=== PATIENT | male | born 1965 | race African-American/Black ===

== ENCOUNTER 2017-01-22 10:16 | Emergency (ER) | payer MEDICAID, MEDICARE ==
--- NOTE | 2017-01-22 10:29 | ER Document Report ---
ED General - General Stated Complaint: POSSIBLE SEIZURE Time Seen by Provider: 01/22/17 10:22 Notes: This is a 51-year-old male from [place] with chronic either schizophrenia or bipolar, as well as partial seizures on Dilantin and Depakote who presents brought in by EMS after he had an episode where he lost postural tone hit the ground and had a couple of full body jerking movements. Initially reported as a seizure. The patient states he did feel dizzy before this happened but did not have an aura or headache. Per EMS he was confused when they found him and is now normalized. He did not urinate on himself or bite his tongue. Apparently he normally has focal seizures but this was generalized. He has some trauma to the left gnosticist. He specifically denies chest pain shortness of breath or leg swelling but he does have Lasix on his med list. Per EMS his blood sugar and vital signs were essentially normal. He has been having premature ventricular contractions on the monitor on the way in. Past Medical History - Social History Smoking Status: Unknown if Ever Smoked Family History: None Review of Systems - Review of Systems Notes: REVIEW OF SYSTEMS GEN: Denies fever, chills, weight loss ENT: Denies sore throat, nasal discharge, ear pain EYES: Denies blurry vision, eye pain, discharge CV: Denies chest pain, palpitations, edema RESP: Denies cough, shortness of breath, wheezing GI: Denies abdominal pain, nausea, vomiting, diarrhea MSK: Denies joint pain/swelling, edema, SKIN: Denies rash, skin lesions LYMPH: Denies swollen glands/lymph nodes NEURO: Denies headache, focal weakness or numbness, dizziness PSYCH: Denies depression, suicidal or homicidal ideation PHYSICAL EXAMINATION General: No acute distress, well-nourished Head: Supple with 1 cm puncture wound/laceration without underlying crepitus or tenderness., normocephalic ENT: Mouth normal, oropharynx moist, no exudates or tonsillar enlargement. No tongue trauma. Eyes: Conjunctiva normal, pupils equal, lids normal Neck: No JVD, supple, no guarding CVS: Normal rate, regular rhythm, no murmurs Resp: No resp distress, equal and normal breath sounds bilaterally GI: Nondistended, soft, no tenderness to palpation, no rebound or guarding Ext: No deformities, no edema, normal range of motion in upper and lower ext Back: No CVA or midline TTP Skin: No rash, warm Lymphatic: No lymphadeopathy noted Neuro: Awake, alert. Face symmetric. No pronator drift. GCS 15. Psychiatric: Flat affect Physical Exam - Vital signs Vitals: Temp Resp Pulse Ox 99 F 21 H 98 01/22/17 10:21 01/22/17 10:21 01/22/17 10:21 Course - Re-evaluation Re-evalutation: 01/22/17 10:28 Patient seen immediately upon arrival by me. His story is consistent with actually having a syncopal event with myoclonus rather than a seizure for several reasons including the PVCs the lack of focality to the seizure as well as him feeling dizzy and advanced, and not having loss of bowel or bladder control or tongue trauma. I will get basic labs check the levels of his antiepileptics, scan his head update his tetanus, get an EKG and troponin he will likely need admission for syncope. 01/22/17 11:15 Patient's sister is now at the bedside. Per her he had a sudden change in mental status while standing "fell out" to the ground with gritting of teeth eye deviation and all 4 extremities shaking, which she states is identical to his seizure disorder which she is witnessed multiple times in the past. He was in fact postictal and did improve. The patient is unconcerned at this time with the episode and is asking to go home. I asked him to at least let me can complete his breakthrough seizure workup and his head CT. His laceration was repaired. He continues to have very infrequent PVCs which are asymptomatic. I believe if everything is negative today he is stable for discharge to follow-up in [place]. 01/22/17 12:02 Patient's Dilantin level is 9 so I will give him an oral load using the elixir, will then be discharged home. - Vital Signs Vital signs: Temp Pulse Resp BP Pulse Ox 99 F 19 121/95 H 98 01/22/17 10:21 01/22/17 11:01 01/22/17 11:01 01/22/17 11:01 - Laboratory Result Diagrams: 01/22/17 10:20 01/22/17 10:20 Laboratory results interpreted by me: 01/22/17 01/22/17 01/22/17 10:20 10:20 10:20 RBC 5.87 H Hgb 12.6 L MCV 69 L MCH 21.4 L MCHC 30.9 L RDW 15.5 H Phenytoin 9.1 L Valproic Acid 33.7 L - Diagnostic Test Radiology reviewed: Image reviewed, Reports reviewed Procedures - Laceration/Wound Repair Left Face Time completed: 11:00 Wound length (cm): 2 Wound's Depth, Shape: Superficial Laceration pre-procedure: Betadine prep applied Wound explored: Clean, No foreign body removed Irrigated w/ Saline (mLs): 100 Wound Repaired With: Steri-strips, Dermabond Layer Closure?: No Post-procedure NV exam normal: Yes Complications: No Discharge - Discharge Clinical Impression: Syncope Qualifiers: Syncope type: vasovagal syncope Qualified Code(s): R55 - Syncope and collapse Condition: Good Admitting Provider: Hospitalist Instructions: Seizure, Known Epileptic ([facility])
[2017-01-22 10:58] LABS: APPEARANCE,URINE CLEAR; BILIRUBIN,URINE NEGATIVE (NEGATIVE); GLUCOSE, URINE NEGATIVE (NEGATIVE); KETONES,URINE NEGATIVE (NEGATIVE); LEUKOCYTE ESTERASE,URINE NEGATIVE (NEGATIVE); NITRITE,URINE NEGATIVE (NEGATIVE); PROTEIN,URINE NEGATIVE (NEGATIVE); URINE SPECIFIC GRAVITY 1.013; UROBILINOGEN,URINE NEGATIVE mg/dL (<2.0)
[2017-01-22 11:01] LABS: ABSOLUTE EOSINOPHILS # (AUTO) 0.1 10^3/uL (0.0-0.6); ABSOLUTE LYMPHOCYTES (AUTO) 1.7 10^3/uL (0.5-4.7); ABSOLUTE MONOCYTES (AUTO) 0.5 10^3/uL (0.1-1.4); ABSOLUTE NEUT (AUTO) 3.6 10^3/uL (1.7-8.2); BASOPHILS % (AUTO) 0.7 % (0-2); EOSINOPHILS % (AUTO) 1.5 % (0-6); HEMATOCRIT 40.7 % (37.9-51.0); HEMOGLOBIN 12.6 g/dL (13.5-17.0); HGB HCT DIFFERENCE -2.9; LYMPHOCYTES % (AUTO) 28.2 % (13-45); MEAN CORPUSCULAR HEMOGLOBIN 21.4 pg (27.0-33.4); MEAN CORPUSCULAR HGB CONC 30.9 g/dL (32.0-36.0); MEAN CORPUSCULAR VOLUME 69 fl (80-97); MONOCYTES % (AUTO) 8.1 % (3-13); RED BLOOD COUNT 5.87 10^6/uL (4.35-5.55); RED CELL DISTRIBUTION WIDTH 15.5 % (11.5-14.0); SEGMENTED NEUTROPHILS % (AUTO) 61.5 % (42-78); WHITE BLOOD COUNT 5.8 10^3/uL (4.0-10.5)
--- NOTE | 2017-01-22 11:12 | RADIOLOGY REPORT (SQ) ---
EXAM DESCRIPTION: CT HEAD WITHOUT COMPLETED DATE/TIME: 01/22/2017 10:50 am REASON FOR STUDY: syncope L moravian trauma COMPARISON: None. TECHNIQUE: Axial images acquired through the brain without intravenous contrast. Images reviewed wi th bone, brain and subdural windows. Images stored on PACS. All CT scanners at this facility use dose modulation, iterative reconstruction, and/or weight based d osing when appropriate to reduce radiation dose to as low as reasonably achievable (ALARA). [facility]: Dose Right [facility]: CareDose [facility]: Dose Right [facility]: Teradose 4D [facility]: Smart Match[employer] Videos RADIATION DOSE: Up-to-date CT equipment and radiation dose reduction techniques were employed. CTDIv ol: 64.6 mGy. DLP: 1163 mGy-cm. mGy. LIMITATIONS: None. FINDINGS: VENTRICLES: Normal size and contour. CEREBRUM: No masses. No hemorrhage. No midline shift. Normal street/white matter differentiation. N o evidence for acute infarction. CEREBELLUM: No masses. No hemorrhage. No alteration of density. No evidence for acute infarction. EXTRAAXIAL SPACES: No fluid collections. No masses. ORBITS AND GLOBE: No intra- or extraconal masses. Normal contour of globe without masses. CALVARIUM: No fracture. PARANASAL SINUSES: There is some mild mucosal thickening in the left frontal sinus and a couple of th e ethmoidal air cells. SOFT TISSUES: No mass or hematoma. OTHER: No other significant finding. IMPRESSION: No significant intracranial abnormalities were identified. Other findings as noted abov e TECHNICAL DOCUMENTATION: JOB ID: [id number] Quality ID # [id number]: Final reports with documentation of one or more dose reduction techniques (e.g., Au tomated exposure control, adjustment of the mA and/or kV according to patient size, use of iterative reconstruction technique) 2010 [employer]- All Rights Reserved
[2017-01-22 11:39] LABS: ANION GAP 13 (5-19); BLOOD UREA NITROGEN 16 mg/dL (7-20); CALCIUM 9.1 mg/dL (8.4-10.2); CARBON DIOXIDE 24 mmol/L (22-30); CHLORIDE 102 mmol/L (98-107); GLUCOSE 112 mg/dL (75-110); POTASSIUM 4.5 mmol/L (3.6-5.0); SODIUM 138.8 mmol/L (137-145)
[2017-01-22] MEDS ORDERED: PHENYTOIN 100 MG/4 ML SUSP PO ONE (11:52)
[2017-01-22 13:11] VITALS: BP 125/88
--- NOTE | 2017-01-22 16:32 | EKG REPORT ---
SEVERITY:- ABNORMAL ECG - SINUS TACHYCARDIA VENTRICULAR TRIGEMINY : Confirmed by: Robb Puentes MD 22-Jan-2017 16:32:12
== END 2017-01-22 13:12 | disposition home or self-care (01) ==
LOC: ER 10:16
DX: R55 Syncope and collapse (principal); S01.81XA Laceration without foreign body of other part of head, initial encounter; X58.XXXA Exposure to other specified factors, initial encounter; G40.909 Epilepsy, unspecified, not intractable, without status epilepticus; Z79.899 Other long term (current) drug therapy; I49.3 Ventricular premature depolarization
CPT/HCPCS: 93005; 99285; 36415; 80185; 85025; 80048; 81001; 84484; 80164; 70450; 93010; J3490

== ENCOUNTER 2017-12-30 10:40 | Emergency (ER) | payer MEDICARE, MEDICAID ==
--- NOTE | 2017-12-30 11:06 | ER Document Report ---
ED Medical Screen (RME) - General Chief Complaint: Psych Problem Stated Complaint: PSYCH EVAL Time Seen by Provider: 12/30/17 11:04 Notes: RAPID MEDICAL EVALUATION DISCLOSURE I have seen this patient as part of a Rapid Medical Evaluation and, if applicable, placed any initially appropriate orders. The patient will be seen and fully evaluated, including a full history and physical exam, by a provider ( in Main ED or Fast Track) when a room becomes available. 52-year-old male PMH psychiatric disorders here with sister who states that over the past week he has been acting erratic and paranoid that "people are out to get him". He has been taking his medications (she thinks). He recently moved from [place]. He denies SI HI hallucinations illicit drug use. EXAM CTAB RRR No SI HI hallucinations TRAVEL OUTSIDE OF THE [place] IN LAST 30 DAYS: No - Related Data Allergies/Adverse Reactions: No Known Allergies Allergy (Verified 12/30/17 10:41) Past Medical History - Social History Frequency of alcohol use: former Drug Abuse: None Neurological Medical History: Reports: Hx Seizures Renal/ Medical History: Denies: Hx Peritoneal Dialysis Psychiatric Medical History: Reports: Hx Bipolar Disorder Past Surgical History: Reports: Hx Orthopedic Surgery - Immunizations Hx Diphtheria, Pertussis, Tetanus Vaccination: No Physical Exam - Vital signs Vitals: Temp Pulse Resp BP Pulse Ox 98.3 F 103 H 16 126/97 H 94 12/30/17 10:48 12/30/17 10:48 12/30/17 10:48 12/30/17 10:48 12/30/17 10:48 Course - Vital Signs Vital signs: Temp Pulse Resp BP Pulse Ox 98.3 F 103 H 16 126/97 H 94 12/30/17 10:48 12/30/17 10:48 12/30/17 10:48 12/30/17 10:48 12/30/17 10:48
--- NOTE | 2017-12-30 12:41 | ER Document Report ---
ED Psych Disorder / Suicide - General Mode of Arrival: Ambulatory Information source: Patient, Relative - SISTER TRAVEL OUTSIDE OF THE [place] IN LAST 30 DAYS: No - HPI Patient complains to provider of: Agitated, Other - PARANOIA Onset: Other - GRADUAL, OVER 1 WEEK OR SO Onset was: Gradual Quality of pain: No pain Severity: Moderate Suicide Risk Factors: No spouse, Other mental health dx. Normal mood: Yes Associated symptoms: Agitated, Paranoid Similar symptoms previously: Yes Recently seen / treated by doctor: No <KASHMIR HERNANDEZ - Last Filed: 12/30/17 19:08> <HILARY FRAZIER - Last Filed: 12/31/17 17:08> <SHANTELL SALINAS - Last Filed: 12/31/17 17:27> - General Chief Complaint: Psych Problem Stated Complaint: PSYCH EVAL Time Seen by Provider: 12/30/17 11:04 - Related Data Allergies/Adverse Reactions: No Known Allergies Allergy (Verified 12/30/17 10:41) Past Medical History - General Information source: Patient - Social History Smoking Status: Never Smoker Cigarette use (# per day): No Chew tobacco use (# tins/day): No Frequency of alcohol use: former Drug Abuse: None Lives with: Alone Family History: None Patient has suicidal ideation: No Patient has homicidal ideation: No - Past Medical History Cardiac Medical History: Reports: None Pulmonary Medical History: Reports: None Neurological Medical History: Reports: Hx Seizures Endocrine Medical History: Reports: None Renal/ Medical History: Denies: Hx Peritoneal Dialysis GI Medical History: Reports: None Musculoskeltal Medical History: Reports None Psychiatric Medical History: Reports: Hx Bipolar Disorder Past Surgical History: Reports: Hx Orthopedic Surgery - Immunizations Hx Diphtheria, Pertussis, Tetanus Vaccination: No <KASHMIR HERNANDEZ - Last Filed: 12/30/17 19:08> Review of Systems - Review of Systems Constitutional: No symptoms reported EENT: No symptoms reported Cardiovascular: No symptoms reported Respiratory: No symptoms reported Gastrointestinal: No symptoms reported Musculoskeletal: Joint pain - ARTHRITIS, CHRONIC Neurological/Psychological: See HPI <KASHMIR HERNANDEZ - Last Filed: 12/30/17 19:08> Physical Exam - Vital signs Interpretation: Hypertensive, Tachycardic. No: Tachypneic - General General appearance: Appears well, Alert In distress: None - HEENT Head: Normocephalic Eyes: Normal Conjunctiva: Normal Ears: Normal Nasal: Normal Mouth/Lips: Normal Mucous membranes: Normal - Respiratory Respiratory status: No respiratory distress - Cardiovascular Rhythm: Regular - Abdominal Inspection: Normal - Extremities General upper extremity: Normal inspection General lower extremity: Normal inspection - Neurological Neuro grossly intact: Yes Cognition: Normal Orientation: AAOx4 - Psychological Associated symptoms: Normal affect, Normal mood - Skin Skin Temperature: Warm Skin Moisture: Dry Skin Color: Normal Skin Turgor: Elastic <KASHMIR HERNANDEZ - Last Filed: 12/30/17 19:08> - Vital signs Vitals: Temp Pulse Resp BP Pulse Ox 98.3 F 103 H 16 126/97 H 94 12/30/17 10:48 12/30/17 10:48 12/30/17 10:48 12/30/17 10:48 12/30/17 10:48 Course - Laboratory Result Diagrams: 12/30/17 13:56 12/30/17 12:28 <KASHMIR HERNANDEZ - Last Filed: 12/30/17 19:08> - Laboratory Result Diagrams: 12/30/17 13:56 12/30/17 12:28 <HILARY FRAZIER - Last Filed: 12/31/17 17:08> - Laboratory Result Diagrams: 12/30/17 13:56 12/30/17 12:28 <SHANTELL SALINAS - Last Filed: 12/31/17 17:27> - Vital Signs Vital signs: Temp Pulse Resp BP Pulse Ox 98.8 F 98 16 118/84 100 12/31/17 14:00 12/31/17 14:00 12/31/17 14:00 12/31/17 14:00 12/31/17 14:00 - Laboratory Laboratory results interpreted by ca: 12/30/17 12/30/17 12/30/17 12:28 13:56 13:56 RBC 5.68 H Hgb 12.3 L MCV 68 L MCH 21.7 L RDW 15.3 H Sodium 145.2 H Potassium 3.5 L Glucose 161 H AST 72 H Urine Urobilinogen Salicylates < 1.0 L Acetaminophen < 10 L Phenytoin Valproic Acid 38.9 L 12/30/17 12/31/17 12/31/17 14:58 14:15 14:15 RBC Hgb MCV MCH RDW Sodium Potassium Glucose AST Urine Urobilinogen 4.0 H Salicylates Acetaminophen Phenytoin 9.4 L Valproic Acid 40.5 L Discharge <KASHMIR HERNANDEZ - Last Filed: 12/30/17 19:08> <HILARY FRAZIER - Last Filed: 12/31/17 17:08> <SHANTELL SALINAS - Last Filed: 12/31/17 17:27> - Discharge Clinical Impression: Schizophrenia Qualifiers: Schizophrenia type: unspecified Qualified Code(s): F20.9 - Schizophrenia, unspecified Condition: Stable Disposition: HOME, SELF-CARE Additional Instructions: Please take your medications as prescribed; without these medications you will see breakthrough of symptoms. It is also recommended to discuss with your outpatient mental health provider about receiving a referral for ACTT or [facility] services. AT ANY TIME, IF YOUR SYMPTOMS CHANGE SIGNIFICANTLY OR WORSEN OR YOU DEVELOP NEW SYMPTOMS, RETURN TO THE EMERGENCY DEPARTMENT IMMEDIATELY FOR RE-EVALUATION. Referrals: [facility] [Outside] - Follow up as needed [facility] [Outside] - Follow up in 3-5 days
[2017-12-30 12:55] LABS: ACETAMINOPHEN < 10 ug/mL (10-30); ALANINE AMINOTRANSFERASE 43 U/L (21-72); ALBUMIN 4.6 g/dL (3.5-5.0); ALCOHOL < 10 mg/dL (NONE DETECTED); ALKALINE PHOSPHATASE 76 U/L (38-126); ANION GAP 15 (5-19); ASPARTATE AMINO TRANSFERASE 72 U/L (17-59); BILIRUBIN,DIRECT 0.3 mg/dL (0.0-0.4); BILIRUBIN,TOTAL 0.6 mg/dL (0.2-1.3); BLOOD UREA NITROGEN 18 mg/dL (7-20); CALCIUM 9.8 mg/dL (8.4-10.2); CARBON DIOXIDE 27 mmol/L (22-30); CHLORIDE 103 mmol/L (98-107); GLUCOSE 161 mg/dL (75-110); POTASSIUM 3.5 mmol/L (3.6-5.0); SALICYLATE < 1.0 mg/dL (2.0-20.0); SODIUM 145.2 mmol/L (137-145); TOTAL PROTEIN 7.8 g/dL (6.3-8.2)
--- NOTE | 2017-12-30 13:46 | EKG REPORT ---
SEVERITY:- NORMAL ECG - SINUS RHYTHM : Confirmed by: Robb Puentes MD 30-Dec-2017 13:44:25
[2017-12-30 14:09] LABS: ABSOLUTE BASOPHILS # (AUTO) 0.1 10^3/uL (0.0-0.2); ABSOLUTE MONOCYTES (AUTO) 0.8 10^3/uL (0.1-1.4); ABSOLUTE NEUT (AUTO) 4.9 10^3/uL (1.7-8.2); BASOPHILS % (AUTO) 0.8 % (0-2); EOSINOPHILS % (AUTO) 0.4 % (0-6); HEMATOCRIT 38.4 % (37.9-51.0); HEMOGLOBIN 12.3 g/dL (13.5-17.0); LYMPHOCYTES % (AUTO) 26.1 % (13-45); MEAN CORPUSCULAR HEMOGLOBIN 21.7 pg (27.0-33.4); MEAN CORPUSCULAR HGB CONC 32.1 g/dL (32.0-36.0); MEAN CORPUSCULAR VOLUME 68 fl (80-97); MONOCYTES % (AUTO) 9.9 % (3-13); PLATELET COUNT 176 10^3/uL (150-450); RED BLOOD COUNT 5.68 10^6/uL (4.35-5.55); RED CELL DISTRIBUTION WIDTH 15.3 % (11.5-14.0); SEGMENTED NEUTROPHILS % (AUTO) 62.8 % (42-78); TOTAL CELLS COUNTED % (AUTO) 100 %; WHITE BLOOD COUNT 7.8 10^3/uL (4.0-10.5)
--- NOTE | 2017-12-30 15:07 | PSYCHOLOGICAL NOTE ---
Psych Note - Psych Note Psych Note: Reason for consult: paranoia Consent permissions: patient's sister, Corin 52-year-old male [facility] psychiatric disorders here with sister who states that over the past week he has been acting erratic and paranoid that "people are out to get him". He has been taking his medications (she thinks). He recently moved from [place]. He denies SI HI hallucinations illicit drug use. Patient disclosed that he takes Risperdal and Dilantin. He reports he takes all his medications as prescribed they are delivered and blister packs. He reports that he arrived to the local area from "[facility] Patient appears to be slightly confused and repeats his answers multiple times however is very pleasant. Patient states he used to go to therapy regularly back in [place]. Patient patient is noted to attempt to give neurology card to clinician on multiple occasions. He confirms he suffers from seizures. Patient's sister disclosed the patient left [place] on October 14 and "has been fine till December 21." She reports that he has been hooked up with [facility] however they "do not do anything he looks at the television to talk to somebody he needs one-on-one." She continued disclosed that he had community services back in [place] and did very well. Since moving here he has rents a room and a "roaming house." She disclosed that he has been mentioning that people are messing with his private parts, taking some of his belongings, and she just found out that yesterday he removed all of his money from his bank account in the thought that he would be renting an apartment that he cannot afford. She is concerned of some of the decisions that he has been recently making is unsure if he is taking all of his medications. Behavior health team was able to correctly identify patient's pharmacy; [facility]. As noted the patient takes multiple medications to include Depakote. Patient's medication list provided to attending physician 298.9 (F29) unspecified schizophrenia spectrum and other psychotic disorder per history provided by patient's sister Impression/plan: patient is recommended for overnight mental health hold for observation. Patient's Depakote level indicates he is subtherapeutic. Patient' s home medication list has been provided to attending physician. Patient will be retested tomorrow to ensure therapeutic levels. If patient is therapeutic he can be discharged (patient denies suicidal homicidal ideation and is not currently in acute psychosis). Patient is recommended to continue with outpatient provider that will assist in submitting referrals to [facility] for either ACTT or [facility]. Patient was provided the services while living in [place]. Dr. Fragoso was consulted and the care and management this patient's; attending physician is in agreement with recommendations and disposition.
[2017-12-30 15:14] LABS: APPEARANCE,URINE CLEAR; BILIRUBIN,URINE NEGATIVE (NEGATIVE); COLOR,URINE YELLOW; GLUCOSE, URINE NEGATIVE (NEGATIVE); KETONES,URINE NEGATIVE (NEGATIVE); LEUKOCYTE ESTERASE,URINE NEGATIVE (NEGATIVE); NITRITE,URINE NEGATIVE (NEGATIVE); PROTEIN,URINE NEGATIVE (NEGATIVE)
[2017-12-30 15:41] LABS: URINE AMPHETAMINES SCREEN NEGATIVE; URINE BARBITURATES SCREEN NEGATIVE; URINE BENZODIAZEPINES SCREEN NEGATIVE; URINE COCAINE SCREEN NEGATIVE; URINE MARIJUANA (THC) SCREEN NEGATIVE; URINE METHADONE SCREEN NEGATIVE; URINE PHENCYCLIDINE SCREEN NEGATIVE
[2017-12-30] MEDS: FERROUS SULFATE 325 MG TABLET PO SCH ×2 (16:22→18:40)
[2017-12-30] MEDS: DOCUSATE SODIUM 100 MG CAPSULE PO SCH (18:40)
[2017-12-30] MEDS ORDERED: DIVALPROEX SODIUM 250 MG TAB.SR.24H PO SCH (22:00)
[2017-12-30] MEDS: PHENYTOIN SODIUM EXTENDED 100 MG CAPSULE PO SCH (22:00)
[2017-12-30] MEDS: DIVALPROEX SODIUM 500 MG TAB.SR.24H PO SCH (22:00)
[2017-12-30] MEDS: HYDROXYZINE PAMOATE 50 MG CAPSULE PO SCH (22:00)
[2017-12-31] MEDS ORDERED: CHLORTHALIDONE 25 MG TABLET PO SCH (08:00)
[2017-12-31] MEDS: FERROUS SULFATE 325 MG TABLET PO SCH (09:40)
[2017-12-31] MEDS: DIVALPROEX SODIUM 500 MG TAB.SR.24H PO SCH (09:40)
[2017-12-31] MEDS: HYDROXYZINE PAMOATE 50 MG CAPSULE PO SCH (09:40)
[2017-12-31] MEDS: DOCUSATE SODIUM 100 MG CAPSULE PO SCH (09:40)
[2017-12-31] MEDS: PHENYTOIN SODIUM EXTENDED 100 MG CAPSULE PO SCH (09:41)
[2017-12-31] MEDS ORDERED: CHOLECALCIFEROL (D3) 1,000 UNIT TABLET PO SCH (10:00)
[2017-12-31] MEDS ORDERED: (PENDING PHARMACY ID) (Risperidone [Risperidone] 2 MG) PO SCH (10:00)
[2017-12-31] MEDS ORDERED: (PENDING PHARMACY ID) (Cholecalciferol (Vitamin D3) [Vitamin D3] 1,000 UNIT) PO SCH (10:00)
[2017-12-31] MEDS ORDERED: LORATADINE 10 MG TABLET PO SCH (10:00)
[2017-12-31] MEDS ORDERED: RISPERIDONE 1 MG TABLET PO SCH (10:00)
[2017-12-31] MEDS ORDERED: POTASSIUM CHLORIDE 10 MEQ TABLET.SA PO ONE (10:22)
--- NOTE | 2017-12-31 10:22 | ER Document Report ---
Doctor's Note Notes: 12/31/17 10:20 Rounds: Chart reviewed and patient interviewed. Patient says that he came in to the emergency department because he felt like he was going to have a seizure. It is indicated in his chart that he was having paranoid thoughts and has a history of schizophrenia as well as seizures. He denies any suicidal thoughts or homicidal thoughts. Vital signs are all essentially normal. Lab studies were essentially normal although his potassium is 3.5 and his hemoglobin is 12.3. Valproic acid level is subtherapeutic. Patient appears to be medically stable for transfer or discharge. Gerson Del Valle MD
--- NOTE | 2017-12-31 12:20 | PSYCHOLOGICAL NOTE ---
Psych Note - Psych Note Psych Note: Reason for consult: paranoia Consent permissions: patient's sister, Corin 52-year-old male H psychiatric disorders here with sister who states that over the past week he has been acting erratic and paranoid that "people are out to get him". He has been taking his medications (she thinks). He recently moved from [place]. He denies SI HI hallucinations illicit drug use. Clinician conducted checking with patient Patient greeted clinician disclosed he is feeling better. He denies any concerns with possible people stealing things from him or hearing or seeing things that confuse her scare him. Patient discussed how he gets his medications and blister packs and cannot remember all of his medications names. He states he likes getting them in blister packs better. He confirms he would like receiving assistance from either ACTT or [facility]. Patient denies suicidal or homicidal ideation. Patient presents cognitively clear and able to communicate in the organized and linear fashion. Patient makes good eye contact. 298.9 (F29) unspecified schizophrenia spectrum and other psychotic disorder per history provided by patient's sister Impression/plan: Patient is cleared from acute psychiatric services. Patient's Depakote level was subtherapeutic. Patient's level demonstrate upward trend. Patient denies suicidal and homicidal ideation no psychosis behaviors are noted. Patient is recommended to continue with outpatient provider that will assist in submitting referrals to [facility] for either ACTT or [facility]. Patient was provided the services while living in [place]. Dr. Fragoso was consulted and the care and management this patient's; attending physician is in agreement with recommendations and disposition.
[2017-12-31 17:38] VITALS: BP 112/80
[2017-12-31] MEDS ORDERED: DOCUSATE SODIUM 100 MG CAPSULE PO SCH (18:00)
[2017-12-31] MEDS ORDERED: FERROUS SULFATE 325 MG TABLET PO SCH (18:00)
[2017-12-31] MEDS ORDERED: PHENYTOIN SODIUM EXTENDED 100 MG CAPSULE PO SCH (22:00)
[2017-12-31] MEDS ORDERED: DIVALPROEX SODIUM 250 MG TAB.SR.24H PO SCH (22:00)
[2017-12-31] MEDS ORDERED: DIVALPROEX SODIUM 500 MG TAB.SR.24H PO SCH (22:00)
[2017-12-31] MEDS ORDERED: HYDROXYZINE PAMOATE 50 MG CAPSULE PO SCH (22:00)
[2018-01-01] MEDS ORDERED: CHLORTHALIDONE 25 MG TABLET PO SCH (08:00)
[2018-01-01] MEDS ORDERED: LORATADINE 10 MG TABLET PO SCH (10:00)
[2018-01-01] MEDS ORDERED: CHOLECALCIFEROL (D3) 1,000 UNIT TABLET PO SCH (10:00)
== END 2017-12-31 18:01 | disposition home or self-care (01) ==
LOC: ER 10:40
DX: F20.9 Schizophrenia, unspecified (principal); F22 Delusional disorders; R45.1 Restlessness and agitation
CPT/HCPCS: 93005; 99285; 36415; 80307 ×4; 80185; 85025; 80053; 81001; 80164; 93010; A9270 ×14; J3490

== ENCOUNTER 2018-01-05 08:39 | Emergency (ER) | payer MEDICARE, MEDICAID ==
--- NOTE | 2018-01-05 09:46 | EKG REPORT ---
SEVERITY:- NORMAL ECG - SINUS RHYTHM : Confirmed by: Garima Eden 05-Jan-2018 09:45:56
[2018-01-05 10:46] LABS: APPEARANCE,URINE CLEAR; BILIRUBIN,URINE NEGATIVE (NEGATIVE); COLOR,URINE YELLOW; GLUCOSE, URINE NEGATIVE (NEGATIVE); KETONES,URINE NEGATIVE (NEGATIVE); LEUKOCYTE ESTERASE,URINE NEGATIVE (NEGATIVE); NITRITE,URINE NEGATIVE (NEGATIVE); PROTEIN,URINE NEGATIVE (NEGATIVE); URINE SPECIFIC GRAVITY 1.013; UROBILINOGEN,URINE NEGATIVE mg/dL (<2.0)
[2018-01-05 10:53] LABS: ABSOLUTE BASOPHILS # (AUTO) 0.1 10^3/uL (0.0-0.2); ABSOLUTE EOSINOPHILS # (AUTO) 0.1 10^3/uL (0.0-0.6); ABSOLUTE LYMPHOCYTES (AUTO) 1.6 10^3/uL (0.5-4.7); ABSOLUTE MONOCYTES (AUTO) 0.5 10^3/uL (0.1-1.4); BASOPHILS % (AUTO) 1.2 % (0-2); EOSINOPHILS % (AUTO) 2.7 % (0-6); HEMOGLOBIN 11.1 g/dL (13.5-17.0); MEAN CORPUSCULAR HEMOGLOBIN 21.8 pg (27.0-33.4); MEAN CORPUSCULAR HGB CONC 31.8 g/dL (32.0-36.0); MEAN CORPUSCULAR VOLUME 69 fl (80-97); MONOCYTES % (AUTO) 8.6 % (3-13); PLATELET COUNT 207 10^3/uL (150-450); RED BLOOD COUNT 5.11 10^6/uL (4.35-5.55); RED CELL DISTRIBUTION WIDTH 15.2 % (11.5-14.0); SEGMENTED NEUTROPHILS % (AUTO) 56.5 % (42-78); TOTAL CELLS COUNTED % (AUTO) 100 %; WHITE BLOOD COUNT 5.3 10^3/uL (4.0-10.5)
[2018-01-05 10:57] LABS: URINE AMPHETAMINES SCREEN NEGATIVE; URINE BARBITURATES SCREEN NEGATIVE; URINE BENZODIAZEPINES SCREEN NEGATIVE; URINE COCAINE SCREEN NEGATIVE; URINE MARIJUANA (THC) SCREEN NEGATIVE; URINE METHADONE SCREEN NEGATIVE; URINE PHENCYCLIDINE SCREEN NEGATIVE
[2018-01-05 11:09] LABS: ALANINE AMINOTRANSFERASE 58 U/L (21-72); ALBUMIN 3.8 g/dL (3.5-5.0); ALKALINE PHOSPHATASE 72 U/L (38-126); ANION GAP 11 (5-19); ASPARTATE AMINO TRANSFERASE 31 U/L (17-59); BILIRUBIN,DIRECT 0.3 mg/dL (0.0-0.4); BILIRUBIN,TOTAL 0.3 mg/dL (0.2-1.3); BLOOD UREA NITROGEN 14 mg/dL (7-20); CALCIUM 9.3 mg/dL (8.4-10.2); CARBON DIOXIDE 31 mmol/L (22-30); CHLORIDE 102 mmol/L (98-107); GLUCOSE 97 mg/dL (75-110); POTASSIUM 3.6 mmol/L (3.6-5.0); SODIUM 143.8 mmol/L (137-145); TOTAL PROTEIN 6.5 g/dL (6.3-8.2)
[2018-01-05 11:11] LABS: ALCOHOL < 10 mg/dL (NONE DETECTED)
--- NOTE | 2018-01-05 13:04 | ER Document Report ---
ED Seizure - General Mode of Arrival: Ambulatory Information source: Patient <ALLISON BRADY - Last Filed: 01/05/18 15:37> <WESLEY ALBERTO - Last Filed: 01/07/18 15:07> - General Chief Complaint: Probable Seizure Stated Complaint: POSSIBLE SEIZURE Time Seen by Provider: 01/05/18 12:49 Notes: Patient is a 52-year-old male who presents to the emergency department today with complaints of a seizure that occurred prior to arrival. Patient states he was found by his "cable man" that was there fixing his TV. Patient states he has a history of seizures and is currently on Dilantin. Patient does admit to multiple missed dosages of his medications. Patient states he does still have several dosages left he does not need a refill. Patient denies a headache or vision changes now. (ALLISON BRADY) - Related Data Allergies/Adverse Reactions: No Known Allergies Allergy (Verified 12/30/17 10:41) Past Medical History - General Information source: Patient - Social History Smoking Status: Unknown if Ever Smoked Cigarette use (# per day): No Frequency of alcohol use: None Drug Abuse: None Lives with: Family Family History: None Patient has suicidal ideation: No Patient has homicidal ideation: No Neurological Medical History: Reports: Hx Seizures Psychiatric Medical History: Reports: Hx Bipolar Disorder Past Surgical History: Reports: Hx Orthopedic Surgery - Immunizations Hx Diphtheria, Pertussis, Tetanus Vaccination: No <ALLISON BRADY - Last Filed: 01/05/18 15:37> Review of Systems - Review of Systems Constitutional: No symptoms reported EENT: No symptoms reported Cardiovascular: No symptoms reported Respiratory: No symptoms reported Gastrointestinal: No symptoms reported Genitourinary: No symptoms reported Male Genitourinary: No symptoms reported Musculoskeletal: No symptoms reported Skin: No symptoms reported Hematologic/Lymphatic: No symptoms reported Neurological/Psychological: See HPI, Seizure -: Yes All other systems reviewed and negative <ALLISON BRADY - Last Filed: 01/05/18 15:37> Physical Exam <ALLISON BRADY - Last Filed: 01/05/18 15:37> <WESLEY ALBERTO - Last Filed: 01/07/18 15:07> - Vital signs Vitals: Resp Pulse Ox 21 H 95 01/05/18 08:49 01/05/18 08:49 - Notes Notes: Physical Exam: General: Alert, appears well. HEENT: Normocephalic. Atraumatic. PERRL. Extraocular movements intact. Oropharynx clear. No tongue lacerations. Neck: Supple. Non-tender. Respiratory: No respiratory distress. Clear and equal breath sounds bilaterally. Cardiovascular: Regular rate and rhythm. Abdominal: Normal Inspection. Non-tender. No distension. Normal Bowel Sounds. Back: Non-tender. No deformity or step off. Extremities: Moves all four extremities. Upper extremities: Normal inspection. Normal ROM. Lower extremities: Normal inspection. No edema. Normal ROM. Neurological: Normal cognition. AAOx4. Normal speech. Psychological: Normal affect. Normal Mood. Skin: Warm. Dry. Normal color. (ALLISON BRADY) Course - Laboratory Result Diagrams: 01/05/18 10:36 01/05/18 10:36 <ALLISON BRADY - Last Filed: 01/05/18 15:37> - Laboratory Result Diagrams: 01/05/18 10:36 01/05/18 10:36 <WESLEY ALBERTO - Last Filed: 01/07/18 15:07> - Re-evaluation Re-evalutation: 01/05/18 14:04 Patient states cable man saw him have seizure-like activity unknown if he truly had seizure. Labs not indicative of this. However, patient is subtherapeutic and acknowledges he has not been taking his medications as prescribed. He is back to normal mental baseline denies any vision changes or neurological changes. Patient is neurologically intact. Well-appearing labs within normal limits nonsignificant. Patient acknowledges that he has not been taking his phenytoin as directed but does have medications available. Will load patient with phenytoin IV prior to discharge discussed need for medicine compliance 01/05/18 14:04 (WESLEY ALBERTO) - Vital Signs Vital signs: Temp Pulse Resp BP Pulse Ox 98.2 F 88 14 115/91 H 97 01/05/18 18:01 01/05/18 09:00 01/05/18 18:01 01/05/18 18:01 01/05/18 18:01 - Laboratory Laboratory results interpreted by me: 01/05/18 01/05/18 01/05/18 10:36 10:36 10:36 Hgb 11.1 L Hct 35.0 L MCV 69 L MCH 21.8 L MCHC 31.8 L RDW 15.2 H Carbon Dioxide 31 H Phenytoin 7.3 L Discharge <ALLISON BRADY - Last Filed: 01/05/18 15:37> <WESLEY ALBERTO - Last Filed: 01/07/18 15:07> - Discharge Clinical Impression: Seizure-like activity Condition: Good Disposition: HOME, SELF-CARE Instructions: Seizure, Known Epileptic ([facility]) Additional Instructions: Please take your medications as prescribed by your physician. Please follow-up with your primary care physician in the next 5-7 days for re- evaluation. Scribe Attestation: 01/07/18 15:07 I personally performed the services described documentation, reviewed and edited the documentation which was dictated to describe my presence, and it accurately records my words and actions. (WESLEY ALBERTO)
[2018-01-05] MEDS ORDERED: PHENYTOIN SODIUM INJ/PF 250 MG/5 ML SDV IV ONE ×2 (13:57→14:03)
[2018-01-05 18:12] VITALS: BP 115/91
== END 2018-01-05 18:17 | disposition home or self-care (01) ==
LOC: ER 08:39
DX: R56.9 Unspecified convulsions (principal); Z79.899 Other long term (current) drug therapy
CPT/HCPCS: 93005; 99284; 96365; 96366; 36415; 82962; 80307 ×2; 83735; 80185; 85025; 80053; 81001; 93010; J1165

== ENCOUNTER → 2018-02-07 | Outpatient (CLI) | payer MEDICARE, MEDICAID ==
--- NOTE | 2018-02-08 08:06 | EEG PRO FEE REPORT ---
EEG INTERPRETATION PATIENT NAME: SHANTELL DE DIOS ROOM#: ORDER#: [id number] DATE OF STUDY: 02/07/2018 : 1965 REFERRING MD: ALLY DELACRUZ M.D. MEDICATIONS: Chlorthalidone, Divalproex sodium ER, Docusate sodium, Ferrous sulfate, Hydroxyzine, Loratadine, Risperidone, Phenytoin, Vitamin D3 calcium History This is a 52 year old right handed man with a history of seizures since age [age]. It has been one year since his last seizure. This EEG was requested for possible seizures. EEG Interpretation This EEG was recorded in the awake and drowsy states. The awake EEG is characterized by a fairly organized background with a moderately developed and reactive posterior dominant rhythm of 8 Hz. The remainder of the background is characterized by a mix of primarily alpha and theta rhythms. Drowsiness is characterized by mild slowing of the background rhythms. Photic stimulation resulted in no significant changes. Hyperventilation resulted in no significant changes. There were no epileptiform abnormalities noted. The EKG showed a regular rhythm. EEG Classification 1. Mild generalized background slowing EEG Impression This EEG is mildly abnormal. It is characterized by mild generalized background slowing. This iss suggestive of mild diffuse cerebral dysfunction. There were no epileptiform discharges. INTERPRETING PHYSICIAN: FRANSISCA WHEATLEY M.D. /: MTEFANDREA TT: [id number] ID: [id number] /: [id number] TD: [id number] JOB: [id number] cc:Sara REIS M.D. > MTDD
== END ==
LOC: NEURO 12:41
PROVIDERS: ATTEND Pediatrics
DX: G40.901 Epilepsy, unspecified, not intractable, with status epilepticus (principal)
CPT/HCPCS: 95819

== ENCOUNTER 2018-03-03 11:36 | Emergency (ER) | payer MEDICARE, MEDICAID ==
[2018-03-03 12:01] LABS: ABSOLUTE BASOPHILS # (AUTO) 0.1 10^3/uL (0.0-0.2); ABSOLUTE EOSINOPHILS # (AUTO) 0.1 10^3/uL (0.0-0.6); ABSOLUTE LYMPHOCYTES (AUTO) 1.9 10^3/uL (0.5-4.7); ABSOLUTE MONOCYTES (AUTO) 0.3 10^3/uL (0.1-1.4); BASOPHILS % (AUTO) 1.9 % (0-2); EOSINOPHILS % (AUTO) 2.5 % (0-6); HEMATOCRIT 38.5 % (37.9-51.0); HEMOGLOBIN 12.3 g/dL (13.5-17.0); LYMPHOCYTES % (AUTO) 43.3 % (13-45); MEAN CORPUSCULAR HGB CONC 32.1 g/dL (32.0-36.0); MEAN CORPUSCULAR VOLUME 69 fl (80-97); MONOCYTES % (AUTO) 6.3 % (3-13); PLATELET COUNT 208 10^3/uL (150-450); RED BLOOD COUNT 5.61 10^6/uL (4.35-5.55); RED CELL DISTRIBUTION WIDTH 15.7 % (11.5-14.0); TOTAL CELLS COUNTED % (AUTO) 100 %; WHITE BLOOD COUNT 4.4 10^3/uL (4.0-10.5)
--- NOTE | 2018-03-03 12:08 | ER Document Report ---
ED Seizure - General Chief Complaint: Probable Seizure Stated Complaint: POSSIBLE SEIZURE Time Seen by Provider: 03/03/18 11:53 Notes: 52-year-old male brought in by the ambulance for evaluation of possible seizure. Patient was apparently found at [facility] in the bathroom. Had locked himself in the bathroom and was in there for approximately 15 minutes. The door was finally able to be opened bystanders stated that he was shaking and twitching. Patient does not remember what happened. Denies any symptoms at this time. Shortly after evaluation and after walking out of the room I was notified to come back in. Patient was having seizure-like activity. Patient had postictal-like activity afterwards. - HPI Patient complains to provider of: History of seizures - Related Data Allergies/Adverse Reactions: No Known Allergies Allergy (Verified 12/30/17 10:41) Past Medical History - General Information source: [facility] Records Cannot obtain history due to: Altered mental status - Social History Smoking Status: Smoker,Current Status Unk Frequency of alcohol use: None Drug Abuse: None Lives with: Other - Unknown Family History: None Neurological Medical History: Reports: Hx Seizures Renal/ Medical History: Denies: Hx Peritoneal Dialysis Psychiatric Medical History: Reports: Hx Bipolar Disorder Past Surgical History: Reports: Hx Orthopedic Surgery - Immunizations Hx Diphtheria, Pertussis, Tetanus Vaccination: No Review of Systems - Review of Systems -: Yes ROS unobtainable due to patient's medical condition Physical Exam - Vital signs Vitals: Resp 22 H 03/03/18 11:47 Interpretation: Normal - General General appearance: Appears well, Alert - HEENT Head: Normocephalic, Atraumatic Eyes: Normal Pupils: PERRL - Respiratory Respiratory status: No respiratory distress Chest status: Nontender Breath sounds: Normal Chest palpation: Normal - Cardiovascular Rhythm: Regular Heart sounds: Normal auscultation Murmur: No - Abdominal Inspection: Normal Distension: No distension Bowel sounds: Normal Tenderness: Nontender Organomegaly: No organomegaly - Back Back: Normal, Nontender - Extremities General upper extremity: Normal inspection, Nontender, Normal color, Normal ROM , Normal temperature General lower extremity: Normal inspection, Nontender, Normal color, Normal ROM , Normal temperature, Normal weight bearing. 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 Dilantin level is in therapeutic range. Is back to baseline. Review of records show multiple visits for seizures. Patient has his medications prescribed in blister packs so that he can keep track of his medications. Recent EEG with background slowing. Family member in system as main contact. I have left a message with the patient's sister. Patient is back to baseline at this time. 03/03/18 15:52 03/03/18 16:05 Laboratory 03/03/18 03/03/18 03/03/18 11:48 11:48 11:48 WBC 4.4 RBC 5.61 H Hgb 12.3 L Hct 38.5 MCV 69 L MCH 22.0 L MCHC 32.1 RDW 15.7 H Plt Count 208 Seg Neutrophils % 46.0 Lymphocytes % 43.3 Monocytes % 6.3 Eosinophils % 2.5 Basophils % 1.9 Absolute Neutrophils 2.0 Absolute Lymphocytes 1.9 Absolute Monocytes 0.3 Absolute Eosinophils 0.1 Absolute Basophils 0.1 Sodium 144.3 Potassium 4.9 Chloride 105 Carbon Dioxide 28 Anion Gap 11 BUN 12 Creatinine 0.54 Est GFR ( Amer) > 60 Est GFR (Non-Af Amer) > 60 Glucose 119 H POC Glucose Calcium 8.9 Magnesium 1.8 Total Bilirubin 0.6 Direct Bilirubin 0.5 H Neonat Total Bilirubin Not Reportable Neonat Direct Bilirubin Not Reportable Neonat Indirect Bili Not Reportable AST 55 ALT 22 Alkaline Phosphatase 81 Troponin I < 0.012 Total Protein 7.7 Albumin 4.2 Urine Color Urine Appearance Urine pH Ur Specific [place] Urine Protein Urine Glucose (UA) Urine Ketones Urine Blood Urine Nitrite Urine Bilirubin Urine Urobilinogen Ur Leukocyte Esterase Urine WBC (Auto) Urine RBC (Auto) Urine Mucus (Auto) Urine Ascorbic Acid Phenytoin Serum Alcohol < 10 03/03/18 03/03/18 03/03/18 12:46 13:00 15:25 WBC RBC Hgb Hct MCV MCH MCHC RDW Plt Count Seg Neutrophils % Lymphocytes % Monocytes % Eosinophils % Basophils % Absolute Neutrophils Absolute Lymphocytes Absolute Monocytes Absolute Eosinophils Absolute Basophils Sodium Potassium Chloride Carbon Dioxide Anion Gap BUN Creatinine Est GFR ( Amer) Est GFR (Non-Af Amer) Glucose POC Glucose 105 Calcium Magnesium Total Bilirubin Direct Bilirubin Neonat Total Bilirubin Neonat Direct Bilirubin Neonat Indirect Bili AST ALT Alkaline Phosphatase Troponin I Total Protein Albumin Urine Color YELLOW Urine Appearance CLEAR Urine pH 6.0 Ur Specific [place] 1.020 Urine Protein NEGATIVE Urine Glucose (UA) NEGATIVE Urine Ketones NEGATIVE Urine Blood NEGATIVE Urine Nitrite NEGATIVE Urine Bilirubin NEGATIVE Urine Urobilinogen NEGATIVE Ur Leukocyte Esterase NEGATIVE Urine WBC (Auto) 1 Urine RBC (Auto) 5 Urine Mucus (Auto) RARE Urine Ascorbic Acid 40 H Phenytoin 13.7 Serum Alcohol - Vital Signs Vital signs: Temp Pulse Resp BP Pulse Ox 98.9 F 12 126/83 H 96 03/03/18 11:58 03/03/18 13:02 03/03/18 13:02 03/03/18 13:02 - Laboratory Result Diagrams: 03/03/18 11:48 03/03/18 11:48 Laboratory results interpreted by me: 03/03/18 03/03/18 03/03/18 11:48 11:48 15:25 RBC 5.61 H Hgb 12.3 L MCV 69 L MCH 22.0 L RDW 15.7 H Glucose 119 H Direct Bilirubin 0.5 H Urine Ascorbic Acid 40 H - EKG Interpretation by Co EKG shows normal: Sinus rhythm, [place], Intervals, QRS Complexes, ST-T Waves Discharge - Discharge Clinical Impression: Seizure Condition: Good Disposition: HOME, SELF-CARE Instructions: Seizure, Known Epileptic ([facility]) Additional Instructions: Continue on with your regular medications. Please follow-up with your neurologist or primary care doctor who is managing your medications. Return for any worsening symptoms or concerns. Referrals: ALLY DELACRUZ MD [COMMUNITY BASED STAFF] - Follow up in 3-5 days
[2018-03-03 12:30] LABS: ALANINE AMINOTRANSFERASE 22 U/L (21-72); ALBUMIN 4.2 g/dL (3.5-5.0); ALKALINE PHOSPHATASE 81 U/L (38-126); ANION GAP 11 (5-19); ASPARTATE AMINO TRANSFERASE 55 U/L (17-59); BILIRUBIN,DIRECT 0.5 mg/dL (0.0-0.4); BILIRUBIN,TOTAL 0.6 mg/dL (0.2-1.3); BLOOD UREA NITROGEN 12 mg/dL (7-20); CALCIUM 8.9 mg/dL (8.4-10.2); CARBON DIOXIDE 28 mmol/L (22-30); CHLORIDE 105 mmol/L (98-107); GLUCOSE 119 mg/dL (75-110); POTASSIUM 4.9 mmol/L (3.6-5.0); SODIUM 144.3 mmol/L (137-145); TOTAL PROTEIN 7.7 g/dL (6.3-8.2)
[2018-03-03 12:31] LABS: ALCOHOL < 10 mg/dL (NONE DETECTED)
[2018-03-03] MEDS ORDERED: LORAZEPAM INJ 2 MG/1 ML VIAL IV ONE (12:53)
[2018-03-03] MEDS ORDERED: LORAZEPAM INJ 2 MG/1 ML VIAL ONE (12:54)
[2018-03-03 13:37] VITALS: BP 126/83
--- NOTE | 2018-03-03 13:39 | RADIOLOGY REPORT (SQ) ---
EXAM DESCRIPTION: CT HEAD WITHOUT COMPLETED DATE/TIME: 03/03/2018 1:27 pm REASON FOR STUDY: altered mental status, seizure COMPARISON: 01/22/2017 TECHNIQUE: Axial images acquired through the brain without intravenous contrast. Images reviewed wi th bone, brain and subdural windows. Images stored on PACS. All CT scanners at this facility use dose modulation, iterative reconstruction, and/or weight based d osing when appropriate to reduce radiation dose to as low as reasonably achievable (ALARA). [facility]: Dose Right [facility]: CareDose [facility]: Dose Right [facility]: Teradose 4D [facility]: [employer] RADIATION DOSE: CT Rad equipment meets quality standard of care and radiation dose reduction techniq ues were employed. CTDIvol: 53.2 mGy. DLP: 1097 mGy-cm. mGy. LIMITATIONS: None. FINDINGS: VENTRICLES: Normal size and contour. CEREBRUM: No masses. No hemorrhage. No midline shift. No evidence for acute infarction. Normal gra y/white matter differentiation. No areas of low density in the white matter. CEREBELLUM: No masses. No hemorrhage. No alteration of density. No evidence for acute infarction. EXTRAAXIAL SPACES: No fluid collections. No masses. ORBITS AND GLOBE: No intra- or extraconal masses. Normal contour of globe without masses. CALVARIUM: No fracture. PARANASAL SINUSES: No fluid or mucosal thickening. SOFT TISSUES: No mass or hematoma. OTHER: No other significant finding. IMPRESSION: No acute intracranial findings. EVIDENCE OF ACUTE STROKE: NO. COMMENT: Quality ID # [id number]: Final reports with documentation of one or more dose reduction techniques (e.g., Automated exposure control, adjustment of the mA and/or kV according to patient size, use of iterative reconstruction technique) TECHNICAL DOCUMENTATION: JOB ID: [id number] [employer]- All Rights Reserved Reading location - IP/workstation name: [facility]
[2018-03-03] MEDS ORDERED: PHENYTOIN SODIUM EXTENDED 100 MG CAPSULE PO ONE (15:28)
[2018-03-03 15:59] LABS: APPEARANCE,URINE CLEAR; BILIRUBIN,URINE NEGATIVE (NEGATIVE); COLOR,URINE YELLOW; GLUCOSE, URINE NEGATIVE (NEGATIVE); KETONES,URINE NEGATIVE (NEGATIVE); LEUKOCYTE ESTERASE,URINE NEGATIVE (NEGATIVE); NITRITE,URINE NEGATIVE (NEGATIVE); PROTEIN,URINE NEGATIVE (NEGATIVE); UROBILINOGEN,URINE NEGATIVE mg/dL (<2.0)
[2018-03-03 16:25] LABS: URINE AMPHETAMINES SCREEN NEGATIVE; URINE BARBITURATES SCREEN NEGATIVE; URINE BENZODIAZEPINES SCREEN NEGATIVE; URINE COCAINE SCREEN NEGATIVE; URINE MARIJUANA (THC) SCREEN NEGATIVE; URINE METHADONE SCREEN NEGATIVE; URINE PHENCYCLIDINE SCREEN NEGATIVE
[2018-03-03] MEDS ORDERED: DIVALPROEX SODIUM 500 MG TAB.SR.24H PO ONE (17:01)
--- NOTE | 2018-03-03 18:36 | EKG REPORT ---
SEVERITY:- NORMAL ECG - SINUS RHYTHM : Confirmed by: Robb Puentes MD 03-Mar-2018 18:35:24
== END 2018-03-03 23:15 | disposition home or self-care (01) ==
LOC: ER 11:36
DX: R56.9 Unspecified convulsions (principal); Z79.899 Other long term (current) drug therapy
CPT/HCPCS: 93005; 99285; 96374; 36415; 82962; 80307 ×2; 83735; 80185; 85025; 80053; 81001; 84484; 80164; 70450; 93010; J2060; A9270 ×2

== ENCOUNTER 2018-05-03 13:28 | Emergency (ER) | payer MEDICARE, MEDICAID ==
[2018-05-03 14:10] LABS: ABSOLUTE BASOPHILS # (AUTO) 0.1 10^3/uL (0.0-0.2); ABSOLUTE EOSINOPHILS # (AUTO) 0.2 10^3/uL (0.0-0.6); ABSOLUTE LYMPHOCYTES (AUTO) 1.6 10^3/uL (0.5-4.7); ABSOLUTE MONOCYTES (AUTO) 0.5 10^3/uL (0.1-1.4); ABSOLUTE NEUT (AUTO) 3.4 10^3/uL (1.7-8.2); BASOPHILS % (AUTO) 0.9 % (0-2); EOSINOPHILS % (AUTO) 3.4 % (0-6); HEMATOCRIT 35.5 % (37.9-51.0); HEMOGLOBIN 11.5 g/dL (13.5-17.0); LYMPHOCYTES % (AUTO) 28.4 % (13-45); MEAN CORPUSCULAR HEMOGLOBIN 21.9 pg (27.0-33.4); MEAN CORPUSCULAR HGB CONC 32.3 g/dL (32.0-36.0); MEAN CORPUSCULAR VOLUME 68 fl (80-97); PLATELET COUNT 199 10^3/uL (150-450); RED BLOOD COUNT 5.23 10^6/uL (4.35-5.55); RED CELL DISTRIBUTION WIDTH 15.3 % (11.5-14.0); SEGMENTED NEUTROPHILS % (AUTO) 59.3 % (42-78); TOTAL CELLS COUNTED % (AUTO) 100 %; WHITE BLOOD COUNT 5.7 10^3/uL (4.0-10.5)
[2018-05-03 14:21] LABS: ALANINE AMINOTRANSFERASE 33 U/L (21-72); ALBUMIN 3.8 g/dL (3.5-5.0); ALCOHOL < 10 mg/dL (NONE DETECTED); ALKALINE PHOSPHATASE 69 U/L (38-126); ANION GAP 11 (5-19); ASPARTATE AMINO TRANSFERASE 24 U/L (17-59); BILIRUBIN,DIRECT 0.1 mg/dL (0.0-0.4); BILIRUBIN,TOTAL 0.3 mg/dL (0.2-1.3); BLOOD UREA NITROGEN 14 mg/dL (7-20); CALCIUM 8.8 mg/dL (8.4-10.2); CARBON DIOXIDE 28 mmol/L (22-30); CHLORIDE 104 mmol/L (98-107); GLUCOSE 93 mg/dL (75-110); POTASSIUM 3.6 mmol/L (3.6-5.0); SODIUM 142.7 mmol/L (137-145); TOTAL PROTEIN 6.4 g/dL (6.3-8.2)
[2018-05-03 14:34] LABS: APPEARANCE,URINE CLEAR; BILIRUBIN,URINE NEGATIVE (NEGATIVE); COLOR,URINE YELLOW; GLUCOSE, URINE NEGATIVE (NEGATIVE); KETONES,URINE NEGATIVE (NEGATIVE); LEUKOCYTE ESTERASE,URINE SMALL (NEGATIVE); NITRITE,URINE NEGATIVE (NEGATIVE); PROTEIN,URINE NEGATIVE (NEGATIVE); URINE SPECIFIC GRAVITY 1.023
[2018-05-03 14:58] LABS: URINE AMPHETAMINES SCREEN NEGATIVE; URINE BARBITURATES SCREEN NEGATIVE; URINE BENZODIAZEPINES SCREEN NEGATIVE; URINE COCAINE SCREEN NEGATIVE; URINE MARIJUANA (THC) SCREEN NEGATIVE; URINE METHADONE SCREEN NEGATIVE; URINE PHENCYCLIDINE SCREEN NEGATIVE
--- NOTE | 2018-05-03 14:58 | ER Document Report ---
ED General - General Chief Complaint: Seizure Stated Complaint: POSSIBLE SEIZURE Time Seen by Provider: 05/03/18 14:12 Mode of Arrival: Medic Information source: Patient, Emergency Med Personnel, [facility] Records Notes: 52-year-old male with known seizure history presents via EMS after having a seizure while working. EMS reports that they were called by the patient's friend and they found the patient laying on a rolled up rug. Friend reported seizure-like activity that was described as his arms flailing around. EMS states when they arrived patient had no seizure-like activity. No medication was given. Patient is on Dilantin and phenobarbital for his seizures but does admit to missing his Dilantin dose last night. He reports that he was recently seen by his neurologist and his level normal. He has no physical complaints at this time including headache, blurred vision, chest pain, shortness of breath, abdominal pain. TRAVEL OUTSIDE OF THE [place] IN LAST 30 DAYS: No - HPI Onset: Just prior to arrival Onset/Duration: Sudden Quality of pain: No pain Associated symptoms: None. denies: Chest pain, Diarrhea, Nausea, Vomiting, Shortness of breath Exacerbated by: Denies Relieved by: Denies Similar symptoms previously: Yes Recently seen / treated by doctor: Yes - Related Data Allergies/Adverse Reactions: No Known Allergies Allergy (Verified 12/30/17 10:41) Past Medical History - General Information source: Patient, Emergency Med Personnel, [facility] Records - Social History Smoking Status: Never Smoker Chew tobacco use (# tins/day): No Frequency of alcohol use: None Drug Abuse: None Lives with: Friend Family History: None Patient has suicidal ideation: No Patient has homicidal ideation: No Neurological Medical History: Reports: Hx Seizures Renal/ Medical History: Denies: Hx Peritoneal Dialysis Psychiatric Medical History: Reports: Hx Bipolar Disorder Past Surgical History: Reports: Hx Orthopedic Surgery - Immunizations Hx Diphtheria, Pertussis, Tetanus Vaccination: No Review of Systems - Review of Systems Notes: REVIEW OF SYSTEMS: CONSTITUTIONAL : Denies fever, chills, or sweats. Denies recent illness. Denies weight loss, recent hospitalizations. EENT: Denies visual changes, eye pain. Denies sore throat, oral lesions, difficulty swallowing. CARDIOVASCULAR: Denies chest pain. Denies palpitations. Denies lower extremity edema. RESPIRATORY: Denies cough. Denies shortness of breath, wheezing. GASTROINTESTINAL: Denies abdominal pain or distention. Denies nausea, vomiting , or diarrhea. Denies blood in vomitus, stools, or per rectum. Denies black, tarry stools. Denies constipation. GENITOURINARY: Denies difficulty urinating, painful urination, frequency, blood in urine, testicular pain or penile discharge. MUSCULOSKELETAL: Denies back or neck pain or stiffness. Denies joint pain or swelling. SKIN: Denies rash, lesions or sores. HEMATOLOGIC : Denies easy bruising or bleeding. LYMPHATIC: Denies swollen glands. NEUROLOGICAL: Denies confusion or altered mental status. Denies loss of consciousness. Denies dizziness or lightheadedness. Denies headache. Denies weakness or paralysis. Denies problems difficulty with ambulation, slurred speech. Denies sensory loss, numbness, or tingling. PSYCHIATRIC: Denies anxiety or stress. Denies depression, suicidal ideation, or Physical Exam - Vital signs Vitals: Temp Resp Pulse Ox 98.4 F 11 L 94 05/03/18 13:53 05/03/18 13:53 05/03/18 13:53 - Notes Notes: PHYSICAL EXAMINATION: GENERAL: Well-appearing, well-nourished and in no acute distress. HEAD: Atraumatic, normocephalic. EYES: Pupils equal round and reactive to light, extraocular movements intact, sclera anicteric, conjunctiva are normal. ENT: Nares patent, oropharynx clear without exudates. Moist mucous membranes. NECK: Normal range of motion, supple without lymphadenopathy LUNGS: Breath sounds clear to auscultation bilaterally and equal. No wheezes rales or rhonchi. HEART: Regular rate and rhythm without murmurs ABDOMEN: Soft, nontender, nondistended abdomen. No guarding, no rebound. No masses appreciated. Musculoskeletal: Normal range of motion, no pitting or edema. No cyanosis. NEUROLOGICAL: Cranial nerves grossly intact. Normal speech, normal gait. Normal sensory, motor exams PSYCH: Normal mood, normal affect. SKIN: Warm, Dry, normal turgor, no rashes or lesions noted. Course - Re-evaluation Re-evalutation: 05/04/18 01:41 Laboratory 05/03/18 05/03/18 05/03/18 13:40 13:40 14:00 WBC 5.7 RBC 5.23 Hgb 11.5 L Hct 35.5 L MCV 68 L MCH 21.9 L MCHC 32.3 RDW 15.3 H Plt Count 199 Seg Neutrophils % 59.3 Lymphocytes % 28.4 Monocytes % 8.0 Eosinophils % 3.4 Basophils % 0.9 Absolute Neutrophils 3.4 Absolute Lymphocytes 1.6 Absolute Monocytes 0.5 Absolute Eosinophils 0.2 Absolute Basophils 0.1 Sodium 142.7 Potassium 3.6 Chloride 104 Carbon Dioxide 28 Anion Gap 11 BUN 14 Creatinine 0.83 Est GFR ( Amer) > 60 Est GFR (Non-Af Amer) > 60 Glucose 93 Calcium 8.8 Magnesium 1.6 Total Bilirubin 0.3 Direct Bilirubin 0.1 Neonat Total Bilirubin Not Reportable Neonat Direct Bilirubin Not Reportable Neonat Indirect Bili Not Reportable AST 24 ALT 33 Alkaline Phosphatase 69 Total Protein 6.4 Albumin 3.8 Urine Color YELLOW Urine Appearance CLEAR Urine pH 6.0 Ur Specific Fertile 1.023 Urine Protein NEGATIVE Urine Glucose (UA) NEGATIVE Urine Ketones NEGATIVE Urine Blood NEGATIVE Urine Nitrite NEGATIVE Urine Bilirubin NEGATIVE Urine Urobilinogen 4.0 H Ur Leukocyte Esterase SMALL H Urine WBC (Auto) 15 Urine RBC (Auto) 10 Squamous Epi Cells Auto <1 Urine Mucus (Auto) RARE Urine Ascorbic Acid 40 H Urine Opiates Screen Urine Methadone Screen Ur Barbiturates Screen Ur Phencyclidine Scrn Ur Amphetamines Screen U Benzodiazepines Scrn Urine Cocaine Screen U Marijuana (THC) Screen Serum Alcohol < 10 05/03/18 14:00 WBC RBC Hgb Hct MCV MCH MCHC RDW Plt Count Seg Neutrophils % Lymphocytes % Monocytes % Eosinophils % Basophils % Absolute Neutrophils Absolute Lymphocytes Absolute Monocytes Absolute Eosinophils Absolute Basophils Sodium Potassium Chloride Carbon Dioxide Anion Gap BUN Creatinine Est GFR ( Amer) Est GFR (Non-Af Amer) Glucose Calcium Magnesium Total Bilirubin Direct Bilirubin Neonat Total Bilirubin Neonat Direct Bilirubin Neonat Indirect Bili AST ALT Alkaline Phosphatase Total Protein Albumin Urine Color Urine Appearance Urine pH Ur Specific Fertile Urine Protein Urine Glucose (UA) Urine Ketones Urine Blood Urine Nitrite Urine Bilirubin Urine Urobilinogen Ur Leukocyte Esterase Urine WBC (Auto) Urine RBC (Auto) Squamous Epi Cells Auto Urine Mucus (Auto) Urine Ascorbic Acid Urine Opiates Screen NEGATIVE Urine Methadone Screen NEGATIVE Ur Barbiturates Screen NEGATIVE Ur Phencyclidine Scrn NEGATIVE Ur Amphetamines Screen NEGATIVE U Benzodiazepines Scrn NEGATIVE Urine Cocaine Screen NEGATIVE U Marijuana (THC) Screen NEGATIVE Serum Alcohol 53-year-old male with known seizure disorder presents via EMS after a witnessed seizure while at work. Vital signs reviewed and within normal limits. Patient is afebrile, hypertensive. Upon my exam patient is alert and oriented. EMS reported to nursing staff that patient missed his evening dose of Dilantin last night. Patient has a normal physical and neurologic exam. CBC is without leukocytosis, does show mild anemia. CMP unremarkable. Urinalysis shows small leuk esterase and 15 WBCs. Patient denies dysuria, hematuria, increased urinary frequency. Urine drug screen negative. Patient had no seizure-like activity during the course. He was given his home dose of Dilantin. Presentation of well-appearing patient after having a seizure. Patient has a known history of seizures. Today's trigger likely secondary to medication noncompliance. The patient has returned to baseline without intervention. No focal neurologic deficits. No infectious symptoms, vital sign abnormalities, or evidence of trauma. No indication imaging based on reassuring evaluation and known history of seizures. The patient will be discharged home with recommendations for close follow-up with primary care as well as their neurologist. Return precautions have been reviewed and patient has verbalized understanding Patient was evaluated and treated as appropriate for the patient's presenting symptoms and complaint, with consideration of any critical or life threatening conditions that may be associated with their obtained history and exam as noted above. All results were discussed with patient. Patient provided the opportunity to ask questions, and express concerns. Patient was educated on treatments based on their presumed diagnosis as noted above. At this time we will discharge the patient with return precautions and follow-up recommendations. Verbal discharge instructions given a the bedside. Medication warnings reviewed. Patient is in agreement with this plan and has verbalized understanding of return precautions. After careful consideration I feel that that patient can be safely discharged from the emergency department, they were advised to followup with a primary care physician in 2-3 days. Dictation on this chart was performed using voice recognition software and may result in unintended grammatical, spelling, syntax or errors. Dated 05/04/18 01:41 05/04/18 01:45 - Vital Signs Vital signs: Temp Pulse Resp BP Pulse Ox 98.4 F 27 H 135/94 H 95 05/03/18 13:53 05/03/18 17:01 05/03/18 17:01 05/03/18 17:01 - Laboratory Result Diagrams: 05/03/18 13:40 05/03/18 13:40 Laboratory results interpreted by me: 05/03/18 05/03/18 13:40 14:00 Hgb 11.5 L Hct 35.5 L MCV 68 L MCH 21.9 L RDW 15.3 H Urine Urobilinogen 4.0 H Ur Leukocyte Esterase SMALL H Urine Ascorbic Acid 40 H Discharge - Discharge Clinical Impression: Seizure, Elevated blood pressure reading, Noncompliance with medication regimen Condition: Good Disposition: HOME, SELF-CARE Instructions: Seizure, Known Epileptic ([facility]) Additional Instructions: Today you had a seizure. It is very important that you do not engage in any activities that could result in severe injury should you have a seizure. Specifically, do not drive a vehicle, go into a body of water, take a bath, climb ladders, or operate any heavy machinery until you have been cleared by your neurologist. Please return to the ED immediately if you have multiple seizures close together, develop a severe headache, weakness, numbness, difficulty speaking, have a seizure in which you do not return to normal within 1 hour of the seizure, or have any other symptoms that are concerning to you. Forms: Elevated Blood Pressure, Return to Work
[2018-05-03] MEDS ORDERED: PHENYTOIN SODIUM INJ/PF 100 MG/2 ML SDV IV ONE (15:41)
[2018-05-03 17:27] VITALS: BP 135/94
== END 2018-05-03 17:27 | disposition home or self-care (01) ==
LOC: ER 13:28
DX: G40.909 Epilepsy, unspecified, not intractable, without status epilepticus (principal); I10 Essential (primary) hypertension; Z91.14 Patient's other noncompliance with medication regimen; Z79.899 Other long term (current) drug therapy
CPT/HCPCS: 99284; 96374; 36415; 80307 ×2; 83735; 85025; 80053; 81001; J1165

== ENCOUNTER 2018-09-05 16:40 | Inpatient (IN) | payer MEDICARE, MEDICAID ==
[2018-09-05 17:14] LABS: ABSOLUTE EOSINOPHILS # (AUTO) 0.2 10^3/uL (0.0-0.6); ABSOLUTE LYMPHOCYTES (AUTO) 1.3 10^3/uL (0.5-4.7); ABSOLUTE MONOCYTES (AUTO) 0.5 10^3/uL (0.1-1.4); BASOPHILS % (AUTO) 0.4 % (0-2); EOSINOPHILS % (AUTO) 2.3 % (0-6); HEMATOCRIT 36.3 % (37.9-51.0); HEMOGLOBIN 11.8 g/dL (13.5-17.0); LYMPHOCYTES % (AUTO) 18.3 % (13-45); MEAN CORPUSCULAR HEMOGLOBIN 22.4 pg (27.0-33.4); MEAN CORPUSCULAR HGB CONC 32.4 g/dL (32.0-36.0); MEAN CORPUSCULAR VOLUME 69 fl (80-97); MONOCYTES % (AUTO) 7.4 % (3-13); PLATELET COUNT 198 10^3/uL (150-450); RED BLOOD COUNT 5.27 10^6/uL (4.35-5.55); RED CELL DISTRIBUTION WIDTH 15.5 % (11.5-14.0); SEGMENTED NEUTROPHILS % (AUTO) 71.6 % (42-78); TOTAL CELLS COUNTED % (AUTO) 100 %
[2018-09-05 17:39] LABS: ALANINE AMINOTRANSFERASE 24 U/L (21-72); ALBUMIN 4.5 g/dL (3.5-5.0); ALKALINE PHOSPHATASE 82 U/L (38-126); ANION GAP 10 (5-19); ASPARTATE AMINO TRANSFERASE 29 U/L (17-59); BILIRUBIN,DIRECT 0.4 mg/dL (0.0-0.4); BILIRUBIN,TOTAL 0.4 mg/dL (0.2-1.3); BLOOD UREA NITROGEN 15 mg/dL (7-20); CALCIUM 9.2 mg/dL (8.4-10.2); CARBON DIOXIDE 28 mmol/L (22-30); CHLORIDE 103 mmol/L (98-107); GLUCOSE 106 mg/dL (75-110); POTASSIUM 4.3 mmol/L (3.6-5.0); TOTAL PROTEIN 7.1 g/dL (6.3-8.2)
[2018-09-05 17:55] LABS: URINE AMPHETAMINES SCREEN NEGATIVE; URINE BARBITURATES SCREEN NEGATIVE; URINE BENZODIAZEPINES SCREEN NEGATIVE; URINE COCAINE SCREEN NEGATIVE; URINE MARIJUANA (THC) SCREEN NEGATIVE; URINE METHADONE SCREEN NEGATIVE; URINE PHENCYCLIDINE SCREEN NEGATIVE
[2018-09-05] MEDS ORDERED: DIVALPROEX SODIUM 500 MG TAB.SR.24H PO ONE (18:01)
[2018-09-05] MEDS ORDERED: PHENYTOIN SODIUM INJ/PF 250 MG/5 ML SDV IV ONE (19:16)
[2018-09-05] MEDS ORDERED: LEVETIRACETAM 500 MG/NACL-ISO 500 MG/100 ML RTUPB IV ONE (19:20)
[2018-09-05] MEDS ORDERED: LORAZEPAM INJ 2 MG/1 ML VIAL ONE (19:23)
--- NOTE | 2018-09-05 19:37 | ER Document Report ---
ED Seizure - General Chief Complaint: Seizure Stated Complaint: POSSIBLE SEIZURE/IVC Time Seen by Provider: 09/05/18 17:38 Notes: Patient brought in by EMS for having had a seizure this afternoon while incarcerated at the local retirement. Patient has a known seizure disorder and is on Dilantin and Depakote for his seizures. He was put in retirement Tuesday or Tuesday because of a nonviolent crime. Shelter was provided with his medications, but he must not of taking them because his levels of both are very low. He had a seizure this afternoon in the retirement. His sister is here and provides some history. She says he has had seizures all of his life, no known head injuries. Reportedly, patient has bitten his tongue. Sees Dr. Schroeder locally. - Related Data Allergies/Adverse Reactions: No Known Allergies Allergy (Verified 09/05/18 17:34) Past Medical History - Social History Smoking Status: Unknown if Ever Smoked Family History: None, Reviewed & Not Pertinent Patient has suicidal ideation: - unknown Patient has homicidal ideation: - unknown Neurological Medical History: Reports: Hx Seizures Psychiatric Medical History: Reports: Hx Bipolar Disorder Past Surgical History: Reports: Hx Orthopedic Surgery - Immunizations Hx Diphtheria, Pertussis, Tetanus Vaccination: No Review of Systems - Review of Systems -: Yes ROS unobtainable due to patient's medical condition - Patient is unable to answer questions reliably. Physical Exam - Vital signs Vitals: Pulse Ox 93 09/05/18 16:41 PHYSICAL EXAMINATION: GENERAL: Quiet,, slowly responsive. Mumbles almost unintelligibly. HEAD: Atraumatic, normocephalic. EYES: Pupils equal round and reactive to light, extraocular movements intact. ENT: Tongue swollen and bruised on the right side. Airway intact. Moist mucous membranes. NECK: Normal range of motion, supple. LUNGS: Breath sounds clear and equal bilaterally. HEART: Regular rate and rhythm without murmurs. ABDOMEN: Soft, nontender. No guarding or rebound. No masses. BACK: No tenderness throughout entire back. EXTREMITIES: Normal range of motion without pain. NEUROLOGICAL: H speech is hard to understand. Moves all 4 extremities. Does not appear to have any deficits. Unable to do a thorough and complete neurologic exam at this time. Not able to assess patient's mental status sufficiently during these postictal hours. PSYCH: Unable to assess at this time. SKIN: Warm, dry, no rashes. Interpretation: Normal. No: Hypoxic, Febrile Course - Re-evaluation Re-evalutation: 09/05/18 19:46 Both of the patient's Depakote and Dilantin levels are barely detectable or not detectable. I spoke with Dr. Schroeder and he wishes to treat patient as an outpatient. Going to give IV Dilantin, etc. and discharged home, when patient went into a full-blown grand mal seizure here in the emergency department with me at the bedside. Transient drop in O2 sat. Oxygen applied. We contacted Dr. Schroeder who will admit the patient to [facility] for adequate control of his seizures. - Vital Signs Vital signs: Temp Pulse Resp BP Pulse Ox 98.4 F 102 H 15 104/58 L 93 09/07/18 10:18 09/07/18 10:18 09/07/18 10:18 09/07/18 10:18 09/07/18 10:18 - Laboratory Result Diagrams: 09/07/18 04:47 09/07/18 04:47 Laboratory results interpreted by me: 09/05/18 09/05/18 09/05/18 17:01 17:01 17:43 Hgb 11.8 L Hct 36.3 L MCV 69 L MCH 22.4 L RDW 15.5 H Phenytoin < 3.0 L Valproic Acid 10.6 L Critical Care Note - Critical Care Note Total time excluding time spent on procedures (mins): 45 Discharge - Discharge Clinical Impression: Seizure Condition: Good Disposition: ADMITTED INPATIENT Admitting Provider: Alexandre Unit Admitted: [facility]
[2018-09-05] MEDS ORDERED: ONDANSETRON HCL INJ/PF 4 MG/2 ML SDV IV PRN (19:40)
[2018-09-05] MEDS ORDERED: IPRATROPIUM/ALBUTEROL 0.5-2.5 MG/3 ML AMPUL NEB PRN (19:40)
[2018-09-05] MEDS ORDERED: ACETAMINOPHEN 325 MG TABLET PO PRN (19:40)
[2018-09-05] MEDS ORDERED: LORAZEPAM INJ 2 MG/1 ML VIAL IV ONE (19:43)
[2018-09-05] MEDS ORDERED: LORAZEPAM INJ 2 MG/1 ML VIAL IV PRN (19:50)
--- NOTE | 2018-09-05 20:10 | RADIOLOGY REPORT (SQ) ---
EXAM DESCRIPTION: XR CHEST 1 VIEW COMPLETED DATE/TME: 09/05/2018 19:31 CLINICAL HISTORY: 53 years, Male, Seizures seizures, rule out aspiration Findings: The heart is mildly enlarged. Aorta is within normal limits. No consolidation or pleural effusion. No pulmonary edema or pneumothorax. IMPRESSION: No acute disease.
--- NOTE | 2018-09-05 21:06 | RADIOLOGY REPORT (SQ) ---
EXAM DESCRIPTION: CT HEAD WITHOUT IV CONTRAST COMPLETED DATE/TME: 09/05/2018 19:35 CLINICAL HISTORY: 53 years, Male, Seizures, history of same. This exam was performed according to our departmental dose-optimization program which includes automated exposure control, adjustment of the mA and/or kVp according to patient size and/or use of iterative reconstruction technique where applicable. FINDINGS: No acute intracranial hemorrhage, mass effect or midline shift. No extra-axial fluid collections. Ventricles and subarachnoid spaces are preserved. Bailey-white matter differentiation is preserved. Visualized paranasal sinuses and the mastoid air cells are clear. The skull is intact. IMPRESSION: No acute intracranial hemorrhage.
[2018-09-05] MEDS: PHENYTOIN SODIUM INJ/PF 100 MG/2 ML SDV IV SCH (22:32)
[2018-09-05] MEDS: DIVALPROEX SODIUM 125 MG CAP.SPRINK PO SCH (22:57)
[2018-09-06] MEDS ORDERED: DIVALPROEX SODIUM 125 MG CAP.SPRINK PO ONE (05:27)
[2018-09-06] MEDS ORDERED: PHENYTOIN SODIUM INJ/PF 100 MG/2 ML SDV ONE (05:27)
[2018-09-06] MEDS: DIVALPROEX SODIUM 125 MG CAP.SPRINK PO SCH (05:33)
[2018-09-06] MEDS: PHENYTOIN SODIUM INJ/PF 100 MG/2 ML SDV IV SCH (05:33)
[2018-09-06] MEDS: LANSOPRAZOLE 15 MG TAB.RAP.DR PO SCH ×2 (05:33→17:57)
[2018-09-06 06:52] LABS: ABSOLUTE EOSINOPHILS # (AUTO) 0.1 10^3/uL (0.0-0.6); ABSOLUTE LYMPHOCYTES (AUTO) 2.4 10^3/uL (0.5-4.7); ABSOLUTE MONOCYTES (AUTO) 0.7 10^3/uL (0.1-1.4); ABSOLUTE NEUT (AUTO) 4.3 10^3/uL (1.7-8.2); BASOPHILS % (AUTO) 0.6 % (0-2); EOSINOPHILS % (AUTO) 0.7 % (0-6); HEMATOCRIT 37.2 % (37.9-51.0); HEMOGLOBIN 12.1 g/dL (13.5-17.0); LYMPHOCYTES % (AUTO) 32.8 % (13-45); MEAN CORPUSCULAR HEMOGLOBIN 22.4 pg (27.0-33.4); MEAN CORPUSCULAR HGB CONC 32.4 g/dL (32.0-36.0); MEAN CORPUSCULAR VOLUME 69 fl (80-97); MONOCYTES % (AUTO) 8.9 % (3-13); PLATELET COUNT 216 10^3/uL (150-450); RED BLOOD COUNT 5.39 10^6/uL (4.35-5.55); RED CELL DISTRIBUTION WIDTH 15.7 % (11.5-14.0); TOTAL CELLS COUNTED % (AUTO) 100 %; WHITE BLOOD COUNT 7.5 10^3/uL (4.0-10.5)
[2018-09-06 07:02] LABS: ALANINE AMINOTRANSFERASE 19 U/L (21-72); ALBUMIN 4.3 g/dL (3.5-5.0); ALKALINE PHOSPHATASE 87 U/L (38-126); ANION GAP 12 (5-19); ASPARTATE AMINO TRANSFERASE 20 U/L (17-59); BILIRUBIN,DIRECT 0.3 mg/dL (0.0-0.4); BILIRUBIN,TOTAL 0.4 mg/dL (0.2-1.3); BLOOD UREA NITROGEN 11 mg/dL (7-20); CALCIUM 9.3 mg/dL (8.4-10.2); CARBON DIOXIDE 27 mmol/L (22-30); CHLORIDE 103 mmol/L (98-107); GLUCOSE 95 mg/dL (75-110); POTASSIUM 4.2 mmol/L (3.6-5.0); SODIUM 142.3 mmol/L (137-145); TOTAL PROTEIN 6.8 g/dL (6.3-8.2)
[2018-09-06] MEDS: LORATADINE 10 MG TABLET PO SCH (09:06)
[2018-09-06] MEDS: DIVALPROEX SODIUM 500 MG TAB.SR.24H PO SCH ×2 (09:06→22:21)
[2018-09-06] MEDS: DOCUSATE SODIUM 100 MG CAPSULE PO SCH (09:06)
[2018-09-06] MEDS: CHOLECALCIFEROL (D3) 1,000 UNIT TABLET PO SCH (09:07)
[2018-09-06] MEDS: PHENYTOIN SODIUM EXTENDED 100 MG CAPSULE PO SCH ×2 (09:07→22:21)
[2018-09-06] MEDS: RISPERIDONE 1 MG TABLET PO SCH ×2 (09:07→17:56)
[2018-09-06] MEDS: FERROUS SULFATE 325 MG TABLET PO SCH ×2 (09:07→17:56)
[2018-09-06] MEDS: CALCIUM CARBONATE 250 MG/VITAMIN D3 125 UNIT TABLET PO SCH (09:07)
[2018-09-06] MEDS: DIVALPROEX SODIUM 250 MG TAB.SR.24H PO SCH ×2 (09:07→22:21)
--- NOTE | 2018-09-06 09:24 | PDOC H&P ---
History of Present Illness Admission Date/PCP: 09/05/18 20:37 Patient complains of: Uncontrolled seizure History of Present Illness: SHANTELL DE DIOS is a 53 year old male This is a 53-year-old male with a significant history of the seizures disorder history of the bipolar recently arrested department nonviolent crime and the patient was in the intermediate unable to get the seizures medications for the last 3 days patient is brought because of the patient have uncontrolled seizures and weakness in the emergency department patient's fluid with the Dilantin and a Keppra The patient's both Dilantin and Depakote level was very low When I saw the patient in the floor doing well denied any chest pain to than any shortness of the breath No seizures activity overnight Patient CT of the head was negative chest x-ray is all negative Past Medical History Cardiac Medical History: Reports: Hypertension Neurological Medical History: Reports: Seizures Psychiatric Medical History: Reports: Bipolar Disorder Denies: Depression Past Surgical History Past Surgical History: Reports: Orthopedic Surgery Social History Smoking Status: Never Smoker Frequency of Alcohol Use: None Hx Recreational Drug Use: No Drugs: None Hx Prescription Drug Abuse: No Family History Family History: None, Reviewed & Not Pertinent Parental Family History Reviewed: Yes Children Family History Reviewed: Yes Sibling(s) Family History Reviewed.: Yes Medication/Allergy Home Medications: Calcium Carbonate/Vitamin D3 [Calcium 500 + Vit D Caplet] 1 tab PO DAILY 09/05/18 Chlorthalidone [Hygroton 25 mg Tablet] 25 mg PO QAM 09/05/18 Cholecalciferol (Vitamin D3) [Vitamin D3 1000 Unit Tablet] 1,000 unit PO DAILY 09/05/18 Divalproex Sodium [Depakote ER 250 mg Tablet] 250 mg PO BID 09/05/18 Divalproex Sodium [Depakote ER 500 mg Tab.sr] 500 mg PO BID 09/05/18 Docusate Sodium [Colace 100 mg Capsule] 100 mg PO DAILY 09/05/18 Ferrous Sulfate [Feosol 325 mg Tablet] 325 mg PO BID 09/05/18 Hydroxyzine Pamoate [Vistaril 25 mg Capsule] 25 mg PO BID 09/05/18 Loratadine [Claritin 10 mg Tablet] 10 mg PO DAILY 09/05/18 Phenytoin Sodium Extended [Dilantin 100 mg Capsule.er] 300 mg PO BID 09/05/18 Risperidone [Risperdal] 2 mg PO BID 09/05/18 Allergies/Adverse Reactions: No Known Allergies Allergy (Verified 09/05/18 17:34) Review of Systems Constitutional: ABSENT: chills, fever(s), headache(s), weight gain, weight loss Eyes: ABSENT: visual disturbances Ears: ABSENT: hearing changes Cardiovascular: ABSENT: chest pain, dyspnea on exertion, edema, orthropnea, palpitations Respiratory: ABSENT: cough, hemoptysis Gastrointestinal: ABSENT: abdominal pain, constipation, diarrhea, hematemesis, hematochezia, nausea, vomiting Genitourinary: ABSENT: dysuria, hematuria Musculoskeletal: ABSENT: joint swelling Integumentary: ABSENT: rash, wounds Neurological: ABSENT: abnormal gait, abnormal speech, confusion, dizziness, focal weakness, syncope Psychiatric: ABSENT: anxiety, depression, homidical ideation, suicidal ideation Endocrine: ABSENT: cold intolerance, heat intolerance, menstrual abnormalities, polydipsia, polyuria Hematologic/Lymphatic: ABSENT: easy bleeding, easy bruising, lymphadenopathy Physical Exam Vital Signs: Temp Pulse Resp BP Pulse Ox 98.1 F 83 14 120/81 92 09/06/18 07:43 09/06/18 07:43 09/06/18 07:43 09/06/18 07:43 09/06/18 07:43 Intake & Output 09/05/18 09/06/18 09/07/18 06:59 06:59 06:59 Intake Total 100 Output Total 200 Balance -100 Weight 105 kg General appearance: PRESENT: no acute distress, well-developed, well-nourished Head exam: PRESENT: atraumatic, normocephalic Eye exam: PRESENT: conjunctiva pink, EOMI, PERRLA. ABSENT: scleral icterus Ear exam: PRESENT: normal external ear exam Mouth exam: PRESENT: moist, tongue midline Neck exam: PRESENT: full ROM. ABSENT: carotid bruit, JVD, lymphadenopathy, thyromegaly Respiratory exam: PRESENT: clear to auscultation laien Cardiovascular exam: PRESENT: RRR. ABSENT: diastolic murmur, rubs, systolic murmur Vascular exam: PRESENT: normal capillary refill GI/Abdominal exam: PRESENT: normal bowel sounds, soft. ABSENT: distended, guarding, mass, organolmegaly, rebound, tenderness Rectal exam: PRESENT: deferred Musculoskeletal exam: PRESENT: ambulatory Neurological exam: PRESENT: alert, awake, oriented to person, oriented to place, oriented to time, oriented to situation, CN II-XII grossly intact. ABSENT: motor sensory deficit Psychiatric exam: PRESENT: appropriate affect, normal mood. ABSENT: homicidal ideation, suicidal ideation Skin exam: PRESENT: dry, intact, warm. ABSENT: cyanosis, rash Results Laboratory Results: 09/06/18 05:17 09/06/18 05:17 09/05/18 09/05/18 09/06/18 17:01 17:01 05:17 WBC 7.0 7.5 RBC 5.27 5.39 Hgb 11.8 L 12.1 L Hct 36.3 L 37.2 L MCV 69 L 69 L MCH 22.4 L 22.4 L MCHC 32.4 32.4 RDW 15.5 H 15.7 H Plt Count 198 216 Seg Neutrophils % 71.6 57.0 Lymphocytes % 18.3 32.8 Monocytes % 7.4 8.9 Eosinophils % 2.3 0.7 Basophils % 0.4 0.6 Absolute Neutrophils 5.0 4.3 Absolute Lymphocytes 1.3 2.4 Absolute Monocytes 0.5 0.7 Absolute Eosinophils 0.2 0.1 Absolute Basophils 0.0 0.0 Sodium 141.0 Potassium 4.3 Chloride 103 Carbon Dioxide 28 Anion Gap 10 BUN 15 Creatinine 0.59 Est GFR ( Amer) > 60 Est GFR (Non-Af Amer) > 60 Glucose 106 Calcium 9.2 Total Bilirubin 0.4 AST 29 ALT 24 Alkaline Phosphatase 82 Total Protein 7.1 Albumin 4.5 09/06/18 05:17 WBC RBC Hgb Hct MCV MCH MCHC RDW Plt Count Seg Neutrophils % Lymphocytes % Monocytes % Eosinophils % Basophils % Absolute Neutrophils Absolute Lymphocytes Absolute Monocytes Absolute Eosinophils Absolute Basophils Sodium 142.3 Potassium 4.2 Chloride 103 Carbon Dioxide 27 Anion Gap 12 BUN 11 Creatinine 0.59 Est GFR ( Amer) > 60 Est GFR (Non-Af Amer) > 60 Glucose 95 Calcium 9.3 Total Bilirubin 0.4 AST 20 ALT 19 L Alkaline Phosphatase 87 Total Protein 6.8 Albumin 4.3 Impressions: Chest X-Ray 09/05/18 19:31 IMPRESSION: No acute disease. Head CT 09/05/18 19:35 IMPRESSION: No acute intracranial hemorrhage. Assessment & Plan - Diagnosis (1) Seizure Is this a current diagnosis for this admission?: Yes Plan: Due to the lack of medications Will restart the patient all home medications we will get the EEG if the patient's remained seizures free next 24 hours we will discharge it and follow outpatients neurology (2) Bipolar disorder Qualifiers: Current episode severity: unspecified Is this a current diagnosis for this admission?: Yes Plan: continue to current medication - Time Time Spent: 30 to 50 Minutes Medications reviewed and adjusted accordingly: Yes Anticipated discharge: Home Within: Other - Inpatient Certification Based on my medical assessment, after consideration of the patient's comorbidities, presenting symptoms, or acuity I expect that the services needed warrant INPATIENT care.: Yes I certify that my determination is in accordance with my understanding of Medicare's requirements for reasonable and necessary INPATIENT services [42 CFR 412.3e].: Yes Medical Necessity: Failure to Improve With Outpatient Therapy, Significant Comorbidiites Make Outpatient Treatment Too Risky, Need Close Monitoring Due to Risk of Patient Decompensation Post Hospital Care: D/C [employer] Documentation - Plan Summary Plan Summary: cont curr med see order
[2018-09-06] MEDS ORDERED: (PENDING PHARMACY ID) (Risperidone [Risperdal] 2 MG) PO SCH (10:00)
[2018-09-06] MEDS ORDERED: (PENDING PHARMACY ID) (Calcium Carbonate/Vitamin D3 [Calcium 500 + Vit D Caplet] 1 TAB) PO SCH (10:00)
[2018-09-06] MEDS ORDERED: DIVALPROEX SODIUM 500 MG TAB.SR.24H PO SCH (10:00)
[2018-09-06] MEDS ORDERED: LEVETIRACETAM 1000 MG/NACL-ISO 1,000 MG/100 ML RTUPB IV SCH (10:00)
[2018-09-06] MEDS ORDERED: DOCUSATE SODIUM 100 MG CAPSULE PO SCH (10:00)
[2018-09-06] MEDS ORDERED: DIVALPROEX SODIUM 250 MG TAB.SR.24H PO SCH (10:00)
[2018-09-07 05:07] LABS: ABSOLUTE BASOPHILS # (AUTO) 0.1 10^3/uL (0.0-0.2); ABSOLUTE EOSINOPHILS # (AUTO) 0.1 10^3/uL (0.0-0.6); ABSOLUTE LYMPHOCYTES (AUTO) 2.7 10^3/uL (0.5-4.7); ABSOLUTE MONOCYTES (AUTO) 0.8 10^3/uL (0.1-1.4); ABSOLUTE NEUT (AUTO) 2.8 10^3/uL (1.7-8.2); BASOPHILS % (AUTO) 0.9 % (0-2); HEMATOCRIT 38.3 % (37.9-51.0); HEMOGLOBIN 12.4 g/dL (13.5-17.0); LYMPHOCYTES % (AUTO) 41.3 % (13-45); MEAN CORPUSCULAR HEMOGLOBIN 22.2 pg (27.0-33.4); MEAN CORPUSCULAR HGB CONC 32.5 g/dL (32.0-36.0); MEAN CORPUSCULAR VOLUME 68 fl (80-97); MONOCYTES % (AUTO) 12.4 % (3-13); PLATELET COUNT 192 10^3/uL (150-450); RED CELL DISTRIBUTION WIDTH 15.5 % (11.5-14.0); SEGMENTED NEUTROPHILS % (AUTO) 43.4 % (42-78); TOTAL CELLS COUNTED % (AUTO) 100 %; WHITE BLOOD COUNT 6.5 10^3/uL (4.0-10.5)
[2018-09-07] MEDS: LANSOPRAZOLE 15 MG TAB.RAP.DR PO SCH (05:14)
[2018-09-07 05:36] LABS: ANION GAP 13 (5-19); BLOOD UREA NITROGEN 12 mg/dL (7-20); CALCIUM 8.7 mg/dL (8.4-10.2); CARBON DIOXIDE 27 mmol/L (22-30); CHLORIDE 102 mmol/L (98-107); GLUCOSE 100 mg/dL (75-110); SODIUM 141.6 mmol/L (137-145)
[2018-09-07] MEDS ORDERED: CHLORTHALIDONE 25 MG TABLET PO SCH (08:00)
--- NOTE | 2018-09-07 08:41 | PDOC DISCHARGE SUMMARY ---
General - Admit/Disc Date/PCP Admission Date/Primary Care Provider: 09/05/18 20:37 Discharge Date: 09/07/18 - Discharge Diagnosis (1) Seizure Is this a current diagnosis for this admission?: Yes Summary: Currently well controlled (2) Bipolar disorder Is this a current diagnosis for this admission?: Yes Summary: Psych outpatient - Additional Information Discharge Diet: Regular Discharge Activity: Activity As Tolerated Home Medications: Calcium Carbonate/Vitamin D3 [Calcium 500 + Vit D Caplet] 1 tab PO DAILY 09/05/18 Chlorthalidone [Hygroton 25 mg Tablet] 25 mg PO QAM 09/05/18 Cholecalciferol (Vitamin D3) [Vitamin D3 1000 Unit Tablet] 1,000 unit PO DAILY 09/05/18 Divalproex Sodium [Depakote ER 250 mg Tablet] 250 mg PO BID 09/05/18 Divalproex Sodium [Depakote ER 500 mg Tab.sr] 500 mg PO BID 09/05/18 Docusate Sodium [Colace 100 mg Capsule] 100 mg PO DAILY 09/05/18 Ferrous Sulfate [Feosol 325 mg Tablet] 325 mg PO BID 09/05/18 Hydroxyzine Pamoate [Vistaril 25 mg Capsule] 25 mg PO BID 09/05/18 Loratadine [Claritin 10 mg Tablet] 10 mg PO DAILY 09/05/18 Phenytoin Sodium Extended [Dilantin 100 mg Capsule.er] 300 mg PO BID 09/05/18 Risperidone [Risperdal] 2 mg PO BID 09/05/18 History of Present Illness History of Present Illness: SHANTELL DE DIOS is a 53 year old male This is a 53-year-old male with a significant history of the seizures disorder history of the bipolar recently arrested department nonviolent crime and the patient was in the senior care unable to get the seizures medications for the last 3 days patient is brought because of the patient have uncontrolled seizures and weakness in the emergency department patient's fluid with the Dilantin and a Ke ppra The patient's both Dilantin and Depakote level was very low When I saw the patient in the floor doing well denied any chest pain to than any shortness of the breath No seizures activity overnight Patient CT of the head was negative chest x-ray is all negative Hospital Course Hospital Course: This is a 53-year-old male presenting the emergency department with the uncontrolled seizures due to the lack of medication in the senior care Patient admitting in the hospital CT of the head was negative other blood work is all stable Patient is loaded with the Dilantin and restart all home medications Last 24-hour patient does not have a no seizures Patient is walking the hallway without any problems Patient is otherwise doing well p.o. intake is good Patient is back to the baseline and discharged home today with a stable condition and follow outpatients neurology Physical Exam Vital Signs: Temp Pulse Resp BP Pulse Ox 98.2 F 92 20 123/86 H 94 09/07/18 03:28 09/07/18 07:00 09/07/18 03:28 09/07/18 03:28 09/07/18 03:28 Intake & Output 09/06/18 09/07/18 09/08/18 06:59 06:59 06:59 Intake Total 100 618 Output Total 200 1125 Balance -100 -507 Weight 105 kg 103.9 kg General appearance: PRESENT: no acute distress, well-developed, well-nourished Head exam: PRESENT: atraumatic, normocephalic Eye exam: PRESENT: conjunctiva pink, EOMI, PERRLA. ABSENT: scleral icterus Ear exam: PRESENT: normal external ear exam Mouth exam: PRESENT: moist, tongue midline Neck exam: PRESENT: full ROM. ABSENT: carotid bruit, JVD, lymphadenopathy, thyromegaly Respiratory exam: PRESENT: clear to auscultation laine Cardiovascular exam: PRESENT: RRR. ABSENT: diastolic murmur, rubs, systolic murmur Vascular exam: PRESENT: normal capillary refill GI/Abdominal exam: PRESENT: normal bowel sounds, soft. ABSENT: distended, guarding, mass, organolmegaly, rebound, tenderness Rectal exam: PRESENT: deferred Musculoskeletal exam: PRESENT: ambulatory Neurological exam: PRESENT: alert, awake, oriented to person, oriented to place, oriented to time, oriented to situation, CN II-XII grossly intact. ABSENT: motor sensory deficit Psychiatric exam: PRESENT: appropriate affect, normal mood. ABSENT: homicidal ideation, suicidal ideation Skin exam: PRESENT: dry, intact, warm. ABSENT: cyanosis, rash Results Laboratory Results: 09/07/18 04:47 09/07/18 04:47 09/07/18 09/07/18 04:47 04:47 WBC 6.5 RBC 5.60 H Hgb 12.4 L Hct 38.3 MCV 68 L MCH 22.2 L MCHC 32.5 RDW 15.5 H Plt Count 192 Seg Neutrophils % 43.4 Lymphocytes % 41.3 Monocytes % 12.4 Eosinophils % 2.0 Basophils % 0.9 Absolute Neutrophils 2.8 Absolute Lymphocytes 2.7 Absolute Monocytes 0.8 Absolute Eosinophils 0.1 Absolute Basophils 0.1 Sodium 141.6 Potassium 4.0 Chloride 102 Carbon Dioxide 27 Anion Gap 13 BUN 12 Creatinine 0.58 Est GFR ( Amer) > 60 Est GFR (Non-Af Amer) > 60 Glucose 100 Calcium 8.7 Impressions: Chest X-Ray 09/05/18 19:31 IMPRESSION: No acute disease. Head CT 09/05/18 19:35 IMPRESSION: No acute intracranial hemorrhage. Qualifiers - * PATIENT BEING DISCHARGED WITH ANY OF THE FOLLOWING DIAGNOSIS: No VTE patient discharged on overlapping Therapy?: Yes Plan Time Spent: Greater than 30 Minutes - Continues to current home medications Discussed with the patient about compliance of the medications Discussed with the sister
--- NOTE | 2018-09-07 09:01 | EEG PRO FEE REPORT ---
EEG INTERPRETATION PATIENT NAME: SHANTELL DE DIOS ROOM#: [id number] ORDER#: [id number] DATE OF STUDY: 09/06/2018 : 1965 REFERRING MD: VIGNESH ADAMS M.D. Reason for study: Uncontrolled seizures MEDICATIONS: Tylenol, Duo-Neb, Hygroton, Cholecalciferol, Feosol, Prevacid, Claritin, Risperidone, Zofran History This is a 53 year old male with history of uncontrolled seizures. This EEG was requested for evaluation for epileptiform activity. EEG Interpretation This EEG was recorded in wakefulness and stage I sleep. The awake EEG is characterized by a background with a reactive posterior dominant rhythm of approximately 8 Hz. The remainder of the background consisted of a mix of frontally predominant low amplitude beta activity and myogenic artifact. Stage I sleep is characterized by slowing of the background rhythm to approximately 7 Hz with more diffuse 5-7 Hz theta activity and a vertex wave was seen. There were no amplitude or frequency asymmetries between the hemispheres. Photic stimulation resulted in no significant photic driving response and no epileptiform activity. Hyperventilation resulted in mild diffuse post hyperventilation slowing and a singular independent left temporal sharp wave. Over the remainder of the study additional independent left temporal sharp waves were seen (typically localizing to T3 or F7). There were no seizures. The EKG showed a regular rhythm with approximately 60-80 beats per minute. EEG Impression This EEG is abnormal due to the presence of occasional left temporal sharp waves which are an interictal EEG finding that would be consistent with a clinical diagnosis of epilepsy. Clinical correlation is needed. The background EEG was also mildly slow for age which is a nonspecific EEG finding. Compared to the prior EEG done on February 07, 2018, this EEG is remarkable for the new finding of left temporal sharp waves which were not present on the prior study. Of note the medications listed at the time of the prior study included Dilantin and Valproic acid, while no antiepileptic medications are listed today. INTERPRETING PHYSICIAN: ILA SHEPPARD M.D. /: MTEFFT TT: 0831 ID: [id number] /: 2051 TD: 2038 JOB: [id number] cc:Sara ESTRELLA M.D. > MTDD
[2018-09-07] MEDS: RISPERIDONE 1 MG TABLET PO SCH (09:21)
[2018-09-07] MEDS: LORATADINE 10 MG TABLET PO SCH (09:21)
[2018-09-07] MEDS: CALCIUM CARBONATE 250 MG/VITAMIN D3 125 UNIT TABLET PO SCH (09:21)
[2018-09-07] MEDS: FERROUS SULFATE 325 MG TABLET PO SCH (09:22)
[2018-09-07] MEDS: DOCUSATE SODIUM 100 MG CAPSULE PO SCH (09:22)
[2018-09-07] MEDS: DIVALPROEX SODIUM 500 MG TAB.SR.24H PO SCH (09:22)
[2018-09-07] MEDS: DIVALPROEX SODIUM 250 MG TAB.SR.24H PO SCH (09:22)
[2018-09-07] MEDS: CHOLECALCIFEROL (D3) 1,000 UNIT TABLET PO SCH (09:23)
[2018-09-07] MEDS: PHENYTOIN SODIUM EXTENDED 100 MG CAPSULE PO SCH (09:35)
[2018-09-07 10:20] VITALS: BP 104/58
== END 2018-09-07 10:55 | disposition home or self-care (01) | DRG 101 ==
LOC: ER 16:40 → EH 20:37 → 3W 09-06 04:35
PROVIDERS: ADMIT Family Medicine; ATTEND Family Medicine
PROC: 3E0F73Z Introduction of Anti-inflammatory into Respiratory Tract, Via Natural or Artificial Opening (ICD-10-PCS; principal; 2018-09-06)
DX: G40.919 Epilepsy, unspecified, intractable, without status epilepticus (principal); F31.9 Bipolar disorder, unspecified; T42.6X6A Underdosing of other antiepileptic and sedative-hypnotic drugs, initial encounter; Y63.6 Underdosing and nonadministration of necessary drug, medicament or biological substance; I10 Essential (primary) hypertension; Z79.899 Other long term (current) drug therapy; Z91.138 Patient's unintentional underdosing of medication regimen for other reason
CPT/HCPCS: 36415; 70450; 71045; 80048; 80053; 80164; 80185; 80307; 85025; 87040; 87077; 87086; 95819; 96365; 96368; 96375; 99285; J1165; J1953; J2060; J3490

== ENCOUNTER 2019-05-07 06:10 | Emergency (ER) | payer MEDICARE, MEDICAID ==
[2019-05-07 07:01] LABS: ABSOLUTE EOSINOPHILS # (AUTO) 0.1 10^3/uL (0.0-0.6); ABSOLUTE LYMPHOCYTES (AUTO) 1.3 10^3/uL (0.5-4.7); ABSOLUTE MONOCYTES (AUTO) 0.3 10^3/uL (0.1-1.4); ABSOLUTE NEUT (AUTO) 3.3 10^3/uL (1.7-8.2); BASOPHILS % (AUTO) 0.4 % (0-2); EOSINOPHILS % (AUTO) 2.6 % (0-6); HEMATOCRIT 38.6 % (37.9-51.0); HEMOGLOBIN 12.2 g/dL (13.5-17.0); LYMPHOCYTES % (AUTO) 26.5 % (13-45); MEAN CORPUSCULAR HGB CONC 31.5 g/dL (32.0-36.0); MEAN CORPUSCULAR VOLUME 70 fl (80-97); MONOCYTES % (AUTO) 5.1 % (3-13); PLATELET COUNT 242 10^3/uL (150-450); RED BLOOD COUNT 5.53 10^6/uL (4.35-5.55); RED CELL DISTRIBUTION WIDTH 16.6 % (11.5-14.0); SEGMENTED NEUTROPHILS % (AUTO) 65.4 % (42-78); TOTAL CELLS COUNTED % (AUTO) 100 %
[2019-05-07 07:34] LABS: APPEARANCE,URINE CLEAR; BILIRUBIN,URINE NEGATIVE (NEGATIVE); COLOR,URINE YELLOW; GLUCOSE, URINE NEGATIVE (NEGATIVE); KETONES,URINE NEGATIVE (NEGATIVE); LEUKOCYTE ESTERASE,URINE TRACE (NEGATIVE); NITRITE,URINE NEGATIVE (NEGATIVE); PROTEIN,URINE NEGATIVE (NEGATIVE); URINE SPECIFIC GRAVITY 1.018; UROBILINOGEN,URINE NEGATIVE mg/dL (<2.0)
[2019-05-07 07:35] LABS: ALBUMIN 4.3 g/dL (3.5-5.0); ALKALINE PHOSPHATASE 105 U/L (38-126); ANION GAP 6 (5-19); ASPARTATE AMINO TRANSFERASE 23 U/L (17-59); BILIRUBIN,DIRECT 0.1 mg/dL (0.0-0.4); BILIRUBIN,TOTAL 0.4 mg/dL (0.2-1.3); BLOOD UREA NITROGEN 13 mg/dL (7-20); CALCIUM 9.4 mg/dL (8.4-10.2); CARBON DIOXIDE 30 mmol/L (22-30); CHLORIDE 104 mmol/L (98-107); GLUCOSE 127 mg/dL (75-110); POTASSIUM 4.4 mmol/L (3.6-5.0); TOTAL PROTEIN 7.4 g/dL (6.3-8.2)
--- NOTE | 2019-05-07 08:02 | ER Document Report ---
Entered by ALLISON BRADY SCRIBE 05/07/19 0629 Acting as scribe for:SHELBIE OSWALD MD ED Seizure - General Chief Complaint: Seizure Stated Complaint: SEIZURE Time Seen by Provider: 05/07/19 06:23 Mode of Arrival: Ambulatory Information source: Patient, Emergency Med Personnel Notes: 54-year-old male with history significant for seizure disorder on Dilantin presents to the emergency department today for concerns of a possible seizure. EMS picked the patient up at [facility]. Patient states he had gone there to get coffee but he does not remember much more than that. Patient reported to EMS that he had not missed any dosages of his dilantin. EMS reports that the patient was postictal when they arrived on scene. Patient has no complaints at this time. Patient was last admitted in August 2018 for uncontrollable seizures. - Related Data Allergies/Adverse Reactions: No Known Allergies Allergy (Verified 09/05/18 17:34) Past Medical History - General Information source: Patient, [facility] Records - Social History Smoking Status: Never Smoker Cigarette use (# per day): No Chew tobacco use (# tins/day): No Smoking Education Provided: No Frequency of alcohol use: None Drug Abuse: None Family History: None, Reviewed & Not Pertinent - Past Medical History Cardiac Medical History: Reports: Hx Hypertension Neurological Medical History: Reports: Hx Seizures - DILANTIN Psychiatric Medical History: Reports: Hx Bipolar Disorder Past Surgical History: Reports: Hx Orthopedic Surgery - Immunizations Hx Diphtheria, Pertussis, Tetanus Vaccination: No Review of Systems - Review of Systems Constitutional: No symptoms reported EENT: No symptoms reported Cardiovascular: No symptoms reported Respiratory: No symptoms reported Gastrointestinal: No symptoms reported Genitourinary: No symptoms reported Male Genitourinary: No symptoms reported Musculoskeletal: No symptoms reported Skin: No symptoms reported Hematologic/Lymphatic: No symptoms reported Neurological/Psychological: See HPI, Seizure -: Yes All other systems reviewed and negative Physical Exam - Vital signs Vitals: Temp Resp BP Pulse Ox 98.2 F 20 144/93 H 95 05/07/19 06:26 05/07/19 06:26 05/07/19 06:26 05/07/19 06:26 - Notes Notes: Physical Exam: General: Alert, appears well. HEENT: Normocephalic. Atraumatic. PERRL. Extraocular movements intact. Oropharynx clear. No obvious bite rosenberg to tongue. Neck: Supple. Non-tender. Respiratory: No respiratory distress. Clear and equal breath sounds bilaterally. Cardiovascular: Regular rate and rhythm. Abdominal: Normal Inspection. Non-tender. No distension. Normal Bowel Sounds. Back: No gross abnormalities. Extremities: Moves all four extremities. Upper extremities: Normal inspection. Normal ROM. Lower extremities: Normal inspection. No edema. Normal ROM. Neurological: Normal cognition. AAOx4. Normal speech. Psychological: Normal affect. Normal Mood. Skin: Warm. Dry. Normal color. Course - Re-evaluation Re-evalutation: 05/07/19 08:02 Dilantin level is 8.5, Depakote level was undetectable. 05/07/19 08:34 I was just informed that the patient wants to leave. I did order Dilantin and Depakote for the patient 30 minutes ago, but he has not received medication yet. We will encourage him to stay until that medicine is administered. - Vital Signs Vital signs: Temp Pulse Resp BP Pulse Ox 98.1 F 16 131/92 H 100 05/07/19 09:01 05/07/19 09:01 05/07/19 09:00 05/07/19 09:01 - Laboratory Result Diagrams: 05/07/19 06:33 05/07/19 06:33 Laboratory results interpreted by me: 05/07/19 05/07/19 05/07/19 06:33 06:33 06:33 Hgb 12.2 L MCV 70 L MCH 22.0 L MCHC 31.5 L RDW 16.6 H Glucose 127 H Ur Leukocyte Esterase Urine Ascorbic Acid Phenytoin 8.5 L Valproic Acid < 10.0 L 05/07/19 07:08 Hgb MCV MCH MCHC RDW Glucose Ur Leukocyte Esterase TRACE H Urine Ascorbic Acid 20 H Phenytoin Valproic Acid - EKG Interpretation by Me EKG shows normal: Sinus rhythm, [place], Intervals, QRS Complexes, ST-T Waves Rate: Normal - 85 Rhythm: NSR Voltage: Consistant with LVH Discharge - Discharge Clinical Impression: Seizure, Noncompliance with medication regimen Condition: Stable Disposition: HOME, SELF-CARE Additional Instructions: Seizure, Known Epileptic You have had a seizure. Seizures may "break through" in an epileptic due to stress of infection or injury, a change in blood chemistry, or drug and alcohol use. Another common cause is failure to take medication as prescribed. Your doctor has evaluated your situation for the likely cause of this seizure. It is important that you follow his advice concerning any medication changes and follow-up care. Further testing of anti-seizure medication levels in your blood may be necessary. 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 This seizure must be reported to the truck driver's license bureau. Call the doctor or return if seizures recur, or if new or unusual symptoms arise -- such as severe headache, confusion, excessive sleepiness, local weakness or numbness, neck stiffness, or fever. * Your Dilantin level was below the therapeutic range. It was 8.5 Your Depakote level was so low the lab could not detect any in your bloodstream. You need to take your medications as prescribed to maintain therapeutic levels of your antiseizure medication. Follow-up with your primary care provider if any problems. RETURN TO THE EMERGENCY ROOM IF ANY NEW OR WORSENING SYMPTOMS. Scribe Attestation: 05/07/19 06:33 I personally performed the services described in the documentation, reviewed and edited the documentation which was dictated to the scribe in my presence, and it accurately records my words and actions. I personally performed the services described in the documentation, reviewed and edited the documentation which was dictated to the scribe in my presence, and it accurately records my words and actions.
[2019-05-07] MEDS ORDERED: DIVALPROEX SODIUM 250 MG TABLET.DR PO ONE (08:03)
[2019-05-07] MEDS ORDERED: PHENYTOIN SODIUM EXTENDED 100 MG CAPSULE PO ONE (08:04)
[2019-05-07 09:22] VITALS: BP 131/92
--- NOTE | 2019-05-07 16:51 | EKG REPORT ---
SEVERITY:- NORMAL ECG - SINUS RHYTHM : Confirmed by: Ashley Balderas MD 07-May-2019 16:50:47
== END 2019-05-07 09:27 | disposition home or self-care (01) ==
LOC: ER 06:10
DX: G40.909 Epilepsy, unspecified, not intractable, without status epilepticus (principal); Z91.14 Patient's other noncompliance with medication regimen; I10 Essential (primary) hypertension
CPT/HCPCS: 93005; 99284; 36415; 83735; 80185; 85025; 80053; 81001; 80164; 93010; A9270 ×2

== ENCOUNTER 2019-06-14 22:24 | Emergency (ER) | payer MEDICARE, MEDICAID ==
[2019-06-14 23:22] LABS: HEMATOCRIT 40.1 % (37.9-51.0); HEMOGLOBIN 12.8 g/dL (13.5-17.0); MEAN CORPUSCULAR HEMOGLOBIN 22.1 pg (27.0-33.4); MEAN CORPUSCULAR HGB CONC 31.8 g/dL (32.0-36.0); MEAN CORPUSCULAR VOLUME 70 fl (80-97); PLATELET COUNT 220 10^3/uL (150-450); RED BLOOD COUNT 5.77 10^6/uL (4.35-5.55); WHITE BLOOD COUNT 5.3 10^3/uL (4.0-10.5)
[2019-06-14 23:32] LABS: APPEARANCE,URINE CLEAR; BILIRUBIN,URINE NEGATIVE (NEGATIVE); COLOR,URINE YELLOW; GLUCOSE, URINE NEGATIVE (NEGATIVE); KETONES,URINE NEGATIVE (NEGATIVE); LEUKOCYTE ESTERASE,URINE LARGE (NEGATIVE); NITRITE,URINE NEGATIVE (NEGATIVE); PROTEIN,URINE NEGATIVE (NEGATIVE); URINE SPECIFIC GRAVITY 1.015; UROBILINOGEN,URINE NEGATIVE mg/dL (<2.0)
[2019-06-14 23:37] LABS: ALBUMIN 4.3 g/dL (3.5-5.0); ALKALINE PHOSPHATASE 109 U/L (38-126); ANION GAP 10 (5-19); ASPARTATE AMINO TRANSFERASE 24 U/L (17-59); BILIRUBIN,DIRECT 0.1 mg/dL (0.0-0.4); BILIRUBIN,TOTAL 0.2 mg/dL (0.2-1.3); BLOOD UREA NITROGEN 17 mg/dL (7-20); CALCIUM 9.3 mg/dL (8.4-10.2); CARBON DIOXIDE 26 mmol/L (22-30); CHLORIDE 107 mmol/L (98-107); GLUCOSE 89 mg/dL (75-110); POTASSIUM 4.2 mmol/L (3.6-5.0); TOTAL PROTEIN 7.3 g/dL (6.3-8.2)
[2019-06-14 23:50] LABS: ABSOLUTE LYMPHOCYTES# (MANUAL) 2.4 10^3/uL (0.5-4.7); ABSOLUTE MONOCYTES # (MANUAL) 0.3 10^3/uL (0.1-1.4); BASOPHILS % (MANUAL) 0 % (0-2); EOSINOPHILS % (MANUAL) 2 % (0-6); LYMPHOCYTES % (MANUAL) 44 % (13-45); MONOCYTES % (MANUAL) 6 % (3-13); SEGMENTED NEUTROPHILS % (MAN) 47 % (42-78); TOTAL CELLS COUNTED 100
[2019-06-14 23:56] LABS: ANISOCYTOSIS 1+; HYPOCHROMASIA 1+; OVALOCYTES 1+; PLATELET COMMENT ADEQUATE; TEAR DROP CELLS SLIGHT
--- NOTE | 2019-06-15 03:22 | ER Document Report ---
ED General - General Chief Complaint: Probable Seizure Stated Complaint: POSSIBLE SEIZURE Time Seen by Provider: 06/15/19 03:12 TRAVEL OUTSIDE OF THE [place] IN LAST 30 DAYS: No - HPI Notes: Patient is a 54-year-old male with a known history of seizure disorder who presents emergency department for evaluation because he wants to have his Dilantin levels checked. He states he had a seizure about a week ago. He states he really only has it when his Dilantin level is low. He states his been taking his Dilantin as directed, has not missed any doses, has not had any changes in his Dilantin dosages recently. He has not had a seizure in a week, but he presents here to the emergency department for evaluation at this time. He denies any pain. No difficulty breathing. No other acute complaints or con cerns. - Related Data Allergies/Adverse Reactions: No Known Allergies Allergy (Verified 06/14/19 22:26) Home Medications: dilantin 300 mg twice daily Past Medical History - General Information source: Patient - Social History Smoking Status: Unknown if Ever Smoked Frequency of alcohol use: None Family History: None, Reviewed & Not Pertinent Patient has suicidal ideation: No Patient has homicidal ideation: No - Past Medical History Cardiac Medical History: Reports: Hx Hypertension Neurological Medical History: Reports: Hx Seizures - DILANTIN Renal/ Medical History: Denies: Hx Peritoneal Dialysis Psychiatric Medical History: Reports: Hx Bipolar Disorder Denies: Hx Depression Past Surgical History: Reports: Hx Orthopedic Surgery - Immunizations Hx Diphtheria, Pertussis, Tetanus Vaccination: No Review of Systems - Review of Systems Constitutional: No symptoms reported EENT: No symptoms reported Cardiovascular: No symptoms reported Respiratory: No symptoms reported Gastrointestinal: No symptoms reported Genitourinary: No symptoms reported Musculoskeletal: No symptoms reported Skin: No symptoms reported Neurological/Psychological: See HPI Physical Exam - Vital signs Vitals: Temp Pulse Resp BP Pulse Ox 97.9 F 86 20 130/85 H 96 06/14/19 22:34 06/14/19 22:34 06/14/19 22:34 06/14/19 22:34 06/14/19 22:34 - Notes Notes: Vital signs reviewed, please refer to chart. Head is normocephalic, atraumatic. Pupils equal round, reactive to light. Neck is supple without meningismus. Heart is regular rate and rhythm. Lungs are clear to auscultation bilaterally. Abdomen is soft, nontender, normoactive bowel sounds throughout. Extremities without cyanosis, clubbing. Posterior calves are nontender. Peripheral pulses are equal. Skin is warm and dry. Patient is awake, alert, oriented x3. Cranial nerves II - XII are grossly intact without focal neurological deficits. Strength is plus 5 out of 5 bilateral upper and lower extremities. Sensation is intact. Reflexes symmetrical. Intact [id number], rapid alternating mov ements, [id number]. Course - Re-evaluation Re-evalutation: 06/15/19 03:22 Patient presents emergency department for evaluation. He had initial laboratory investigations as ordered, but I am still awaiting a Dilantin level. This was added. Patient is stable, seizure precautions in place. We will continue to monitor. 06/15/19 04:27 Patient's Dilantin level was low at 9. Again the patient states he is been taking his medication as prescribed. He already does not drive. He has a known seizure disorder history. He is not even sure if he had a seizure this week. I strongly encouraged him to follow-up with his neurologist, he may in fact need a change in his dosage. I did give him an extra dose of Dilantin at 300 mg t . He is to follow-up with neurologist on Tuesday, return to the ED with worsening or new concerning symptoms of any sort. - Vital Signs Vital signs: Temp Pulse Resp BP Pulse Ox 97.3 F 65 18 135/78 H 98 06/15/19 01:35 06/15/19 01:35 06/15/19 01:35 06/15/19 01:35 06/15/19 01:35 - Laboratory Result Diagrams: 06/14/19 23:05 06/14/19 23:05 Laboratory results interpreted by me: 06/14/19 06/14/19 06/14/19 23:05 23:05 23:05 RBC 5.77 H Hgb 12.8 L MCV 70 L MCH 22.1 L MCHC 31.8 L RDW 16.0 H Urine Blood SMALL H Ur Leukocyte Esterase LARGE H Phenytoin 9.0 L Discharge - Discharge Clinical Impression: Seizure disorder, Subtherapeutic serum dilantin level Condition: Stable Disposition: HOME, SELF-CARE Instructions: Seizure, Known Epileptic ([facility]) Additional Instructions: Your Dilantin level was subtherapeutic at 9 today. Please be sure to take your medications as prescribed. Follow-up with your neurologist on Tuesday. You may need an adjustment in your medication dosages. Return to the ED with worsening or new concerning symptoms of any sort.
[2019-06-15] MEDS ORDERED: PHENYTOIN SODIUM EXTENDED 100 MG CAPSULE PO ONE (04:24)
[2019-06-15 05:02] VITALS: BP 133/86
== END 2019-06-15 05:04 | disposition home or self-care (01) ==
LOC: ER 22:24
DX: G40.909 Epilepsy, unspecified, not intractable, without status epilepticus (principal); R89.2 Abnormal level of other drugs, medicaments and biological substances in specimens from other organs, systems and tissues; Z79.899 Other long term (current) drug therapy; I10 Essential (primary) hypertension
CPT/HCPCS: 99284; 36415; 80185; 85025; 80053; 81001; A9270

== ENCOUNTER 2019-07-07 08:35 | Emergency (ER) | payer MEDICARE, MEDICAID ==
[2019-07-07] MEDS ORDERED: NORMAL SALINE 1000 ML 1,000 ML IV ONE ×2 (10:49→11:40)
--- NOTE | 2019-07-07 10:50 | ER Document Report ---
ED Medical Screen (RME) - General Chief Complaint: Other Stated Complaint: ETOH Time Seen by Provider: 07/07/19 10:27 Mode of Arrival: Medic Information source: Patient Notes: 54-year-old male with history of seizures presenting to the emergency department via EMS. EMS reported that the patient was found on the ground and that they believe he was intoxicated. Patient does not smell of alcohol. Patient denies any recent alcohol use. He does report he thinks he had a seizure. He does take Dilantin. He did urinate on himself prior to arrival. Orders initiated at this time. Exam: Lung sounds clear and equal bilaterally. Patient arouses with verbal stimuli, alert and oriented x3. I have greeted and performed a rapid initial assessment of this patient. A comprehensive ED assessment and evaluation of the patient, analysis of test results and completion of the medical decision making process will be conducted by additional ED providers. I have specifically instructed the patient or family members with the patient to immediately return to any nursing staff should anything change in the patient's condition or with their chief complaint. This medical record was dictated with voice recognizing software. There may be grammatical, syntax errors that are unintended. TRAVEL OUTSIDE OF THE [place] IN LAST 30 DAYS: No - Related Data Allergies/Adverse Reactions: No Known Allergies Allergy (Verified 06/14/19 22:26) Past Medical History - Past Medical History Cardiac Medical History: Reports: Hx Hypertension Neurological Medical History: Reports: Hx Seizures - DILANTIN Renal/ Medical History: Denies: Hx Peritoneal Dialysis Psychiatric Medical History: Reports: Hx Bipolar Disorder Denies: Hx Depression Past Surgical History: Reports: Hx Orthopedic Surgery - Immunizations Hx Diphtheria, Pertussis, Tetanus Vaccination: No Physical Exam - Vital signs Vitals: Temp Pulse Resp BP Pulse Ox 98.8 F 95 18 150/84 H 94 07/07/19 09:10 07/07/19 09:10 07/07/19 09:10 07/07/19 09:10 07/07/19 09:10 Course - Vital Signs Vital signs: Temp Pulse Resp BP Pulse Ox 98.8 F 95 18 150/84 H 94 07/07/19 09:10 07/07/19 09:10 07/07/19 09:10 07/07/19 09:10 07/07/19 09:10
[2019-07-07 11:04] LABS: HEMATOCRIT 42.3 % (37.9-51.0); HEMOGLOBIN 13.5 g/dL (13.5-17.0); MEAN CORPUSCULAR HEMOGLOBIN 22.4 pg (27.0-33.4); MEAN CORPUSCULAR HGB CONC 31.9 g/dL (32.0-36.0); MEAN CORPUSCULAR VOLUME 70 fl (80-97); PLATELET COUNT 279 10^3/uL (150-450); RED BLOOD COUNT 6.03 10^6/uL (4.35-5.55); RED CELL DISTRIBUTION WIDTH 16.2 % (11.5-14.0)
[2019-07-07 11:25] LABS: ABSOLUTE LYMPHOCYTES# (MANUAL) 1.1 10^3/uL (0.5-4.7); ABSOLUTE MONOCYTES # (MANUAL) 0.2 10^3/uL (0.1-1.4); ANISOCYTOSIS 1+; BASOPHILS % (MANUAL) 0 % (0-2); EOSINOPHILS % (MANUAL) 0 % (0-6); LYMPHOCYTES % (MANUAL) 9 % (13-45); MONOCYTES % (MANUAL) 2 % (3-13); ROULEAUX 1+; SEGMENTED NEUTROPHILS % (MAN) 89 % (42-78); TOTAL CELLS COUNTED 100
[2019-07-07 11:26] LABS: PLATELET COMMENT ADEQUATE
[2019-07-07] MEDS ORDERED: PHENYTOIN SODIUM INJ/PF 250 MG/5 ML SDV IV ONE (11:37)
--- NOTE | 2019-07-07 11:44 | ER Document Report ---
ED General - General Chief Complaint: Other Stated Complaint: ETOH Time Seen by Provider: 07/07/19 10:27 Mode of Arrival: Medic TRAVEL OUTSIDE OF THE [place] IN LAST 30 DAYS: No - HPI Notes: Mr. San is a 54-year-old male with a chief complaint of seizure. This man has a history of epilepsy since childhood and is supposed to be regularly taking Dilantin. He says he has been out for "several days" and does not give a specific reason. He denies abuse of drugs or alcohol. He apparently had a brief generalized seizure while visiting with a friend. No trauma reported. Transported here by EMS. He has no specific complaints at this time. Wants to go home. Pertinent prior history: Otherwise unremarkable. - Related Data Allergies/Adverse Reactions: No Known Allergies Allergy (Verified 06/14/19 22:26) Past Medical History - General Information source: Patient - Social History Smoking Status: Never Smoker Family History: None, Reviewed & Not Pertinent Patient has suicidal ideation: No Patient has homicidal ideation: No - Past Medical History Cardiac Medical History: Reports: Hx Hypertension Neurological Medical History: Reports: Hx Seizures - DILANTIN Renal/ Medical History: Denies: Hx Peritoneal Dialysis Psychiatric Medical History: Reports: Hx Bipolar Disorder Denies: Hx Depression Past Surgical History: Reports: Hx Orthopedic Surgery - Immunizations Hx Diphtheria, Pertussis, Tetanus Vaccination: No Review of Systems - Review of Systems Notes: Constitutional: Negative for fever. HENT: Negative for sore throat. Eyes: Negative for visual changes. Cardiovascular: Negative for chest pain. Respiratory: Negative for shortness of breath. Gastrointestinal: Negative for abdominal pain, vomiting or diarrhea. Genitourinary: Negative for dysuria. Musculoskeletal: Negative for back pain. Skin: Negative for rash. Neurological: As per HPI. 10 point ROS negative except as marked above and in HPI. Physical Exam - Vital signs Vitals: Temp Pulse Resp BP Pulse Ox 98.8 F 95 18 150/84 H 94 07/07/19 09:10 07/07/19 09:10 07/07/19 09:10 07/07/19 09:10 07/07/19 09:10 - Notes Notes: GENERAL: Well-developed male approximately stated age with poor personal hygiene appearing in no acute distress. SKIN: Good turgor no rashes. HEAD: Normocephalic atraumatic. EYES: PERRLA. Conjunctivae and sclerae clear. EARS: CANALS AND TMS CLEAR. NOSE: CLEAR. MOUTH: Moist mucosa. Good dentition. No stridor or edema. No drooling. NECK: Supple. No masses or thyromegaly. No adenopathy. Carotids 2+ without bruits. No JVD. BACK: Symmetrical without tenderness. CHEST: Respirations unlabored. Breath sounds clear and symmetrical. HEART: Regular rhythm. No murmur gallop or rub. ABDOMEN: Soft nontender without masses, organomegaly or rebound. Bowel sounds normally active. No bruits. GENITALIA: Deferred. EXTREMITIES: No edema. No calf tenderness. Cap refill less than 1.5 seconds. Dorsalis pedis and posterior tibial pulses 3+ and symmetrical. NEUROLOGICAL: GCS 15. Alert and oriented x3. Normal gait. Fluent speech. Cranial nerves II through XII intact. Sensorimotor and cerebellar normal. Normal tone. Course - Re-evaluation Re-evalutation: 07/07/19 12:51 This gentleman appears to have had an uncomplicated seizure prior to arrival here. His neurologic exam here is essentially normal. His history suggest noncompliance with his phenytoin and his level was subtherapeutic at 6.8. He is receiving reloading with IV phenytoin. He is oxygenating normally here and does not have a fever nor elevation of white count but on chest x-ray is noted to have a questionable infiltrate of the lingula. I will give him some IV Rocephin. We have also requested a noncontrast head CT. Anticipate discharge home barring other unforeseen complications. 07/07/19 15:46 Patient is asymptomatic at this time. His head CT was normal. He says he is supposed to be taking 300 mg of Dilantin twice a day. I asked him to get back on medicine I will also write him some oral azithromycin and have him follow-up with his primary care doctor within the next 3 to 5 days. Return here as needed for any new or worsening symptoms. - Vital Signs Vital signs: Temp Pulse Resp BP Pulse Ox 98.8 F 95 24 H 120/71 97 07/07/19 09:10 07/07/19 09:10 07/07/19 15:01 07/07/19 15:01 07/07/19 15:01 - Laboratory Result Diagrams: 07/07/19 10:10 07/07/19 11:27 Laboratory results interpreted by me: 07/07/19 07/07/19 07/07/19 10:10 11:10 11:27 WBC 12.0 H RBC 6.03 H MCV 70 L MCH 22.4 L MCHC 31.9 L RDW 16.2 H Seg Neuts % (Manual) 89 H Lymphocytes % (Manual) 9 L Monocytes % (Manual) 2 L Abs Neuts (Manual) 10.7 H Glucose 111 H Alkaline Phosphatase 128 H Total Protein 8.7 H Ur Leukocyte Esterase TRACE H Phenytoin 07/07/19 11:27 WBC RBC MCV MCH MCHC RDW Seg Neuts % (Manual) Lymphocytes % (Manual) Monocytes % (Manual) Abs Neuts (Manual) Glucose Alkaline Phosphatase Total Protein Ur Leukocyte Esterase Phenytoin 6.8 L Discharge - Discharge Clinical Impression: Seizure, Noncompliance Condition: Stable Disposition: HOME, SELF-CARE Additional Instructions: Seizure You have had a seizure. Seizure disorders (epilepsy) of one sort or another affect about one out of 50 people. The seizure occurs because of abnormal electrical activity in the brain. Seizures may be due to drugs and alcohol, strokes, brain injury, or infection. In the most common form of epilepsy, no cause can be found. You will require further evaluation to determine the cause of your seizure, and to determine whether anti-seizure medication is required. This follow-up testing is important, so please call us if you encounter problems with scheduling of tests or appointments. YOU SHOULD NOT DRIVE until released to do so by your physician. The law requires that seizures be reported to the comp[place] driver's license bureau--a seizure while driving could be catastrophic. Call the doctor if seizures recur, or if you develop new symptoms such as fever, severe headache, stiff neck, confusion or increasing sleepiness, weakness or numbness, or visual problems. Take your medication as prescribed. Return here as needed for new or worsening symptoms. See your primary care doctor within the next 3 to 5 days. Prescriptions: Azithromycin [Zithromax 250 mg Tablet] 250 mg PO ASDIR PRN #6 tablet PRN Reason:
[2019-07-07 12:07] LABS: APPEARANCE,URINE CLEAR; BILIRUBIN,URINE NEGATIVE (NEGATIVE); COLOR,URINE YELLOW; GLUCOSE, URINE NEGATIVE (NEGATIVE); KETONES,URINE NEGATIVE (NEGATIVE); LEUKOCYTE ESTERASE,URINE TRACE (NEGATIVE); NITRITE,URINE NEGATIVE (NEGATIVE); PROTEIN,URINE NEGATIVE (NEGATIVE); URINE SPECIFIC GRAVITY 1.015; UROBILINOGEN,URINE NEGATIVE mg/dL (<2.0)
[2019-07-07 12:09] LABS: ALKALINE PHOSPHATASE 128 U/L (38-126); ANION GAP 9 (5-19); ASPARTATE AMINO TRANSFERASE 33 U/L (17-59); BILIRUBIN,DIRECT 0.3 mg/dL (0.0-0.4); BILIRUBIN,TOTAL 0.8 mg/dL (0.2-1.3); BLOOD UREA NITROGEN 12 mg/dL (7-20); CARBON DIOXIDE 28 mmol/L (22-30); CHLORIDE 104 mmol/L (98-107); GLUCOSE 111 mg/dL (75-110); TOTAL PROTEIN 8.7 g/dL (6.3-8.2)
[2019-07-07 12:10] LABS: ALCOHOL < 10 mg/dL (NONE DETECTED)
--- NOTE | 2019-07-07 12:30 | RADIOLOGY REPORT (SQ) ---
EXAM DESCRIPTION: CHEST SINGLE VIEW COMPLETED DATE/TIME: 07/07/2019 12:14 pm REASON FOR STUDY: Seizure COMPARISON: None. EXAM PARAMETERS: NUMBER OF VIEWS: One view. TECHNIQUE: Single frontal radiographic view of the chest acquired. RADIATION DOSE: NA LIMITATIONS: None. FINDINGS: LUNGS AND PLEURA: Vague opacity lingular segment left upper lobe. Right lung clear. MEDIASTINUM AND HILAR STRUCTURES: No masses. Contour normal. HEART AND VASCULAR STRUCTURES: Heart normal in size. Normal vasculature. BONES: No acute findings. HARDWARE: None in the chest. OTHER: No other significant finding. IMPRESSION: Lingular segment left upper lobe pneumonitis. TECHNICAL DOCUMENTATION: JOB ID: [id number] [employer]- All Rights Reserved Reading location - IP/workstation name: [email or web address]
[2019-07-07 12:31] LABS: URINE AMPHETAMINES SCREEN NEGATIVE; URINE BARBITURATES SCREEN NEGATIVE; URINE BENZODIAZEPINES SCREEN NEGATIVE; URINE COCAINE SCREEN NEGATIVE; URINE MARIJUANA (THC) SCREEN NEGATIVE; URINE METHADONE SCREEN NEGATIVE; URINE PHENCYCLIDINE SCREEN NEGATIVE
[2019-07-07] MEDS ORDERED: CEFTRIAXONE INJ 1000 MG VIAL IV ONE (12:51)
[2019-07-07] MEDS ORDERED: CEFTRIAXONE 1 GM/D5W RTU 1 GM/50 ML RTUPB IV ONE (13:09)
--- NOTE | 2019-07-07 15:02 | RADIOLOGY REPORT (SQ) ---
EXAM DESCRIPTION: CT HEAD WITHOUT COMPLETED DATE/TIME: 07/07/2019 2:47 pm REASON FOR STUDY: Seizure COMPARISON: 09/05/2018 TECHNIQUE: Axial images acquired through the brain without intravenous contrast. Images reviewed wi th bone, brain and subdural windows. Additional sagittal and coronal reconstructions were generated. Images stored on PACS. All CT scanners at this facility use dose modulation, iterative reconstruction, and/or weight based d osing when appropriate to reduce radiation dose to as low as reasonably achievable (ALARA). [facility]: Dose Right [facility]: CareDose [facility]: Dose Right [facility]: Teradose 4D [facility]: Smart [place] RADIATION DOSE: CT Rad equipment meets quality standard of care and radiation dose reduction techniq ues were employed. CTDIvol: 53.2 mGy. DLP: 1017 mGy-cm. mGy. LIMITATIONS: None. FINDINGS: VENTRICLES: Normal size and contour. CEREBRUM: No masses. No hemorrhage. No midline shift. No evidence for acute infarction. Normal gra y/white matter differentiation. No areas of low density in the white matter. CEREBELLUM: No masses. No hemorrhage. No alteration of density. No evidence for acute infarction. EXTRAAXIAL SPACES: No fluid collections. No masses. ORBITS AND GLOBE: No intra- or extraconal masses. Normal contour of globe without masses. CALVARIUM: No fracture. PARANASAL SINUSES: No fluid or mucosal thickening. SOFT TISSUES: No mass or hematoma. OTHER: No other significant finding. IMPRESSION: NORMAL BRAIN CT WITHOUT CONTRAST. EVIDENCE OF ACUTE STROKE: NO. COMMENT: Quality ID # [id number]: Final reports with documentation of one or more dose reduction techniques (e.g., Automated exposure control, adjustment of the mA and/or kV according to patient size, use of iterative reconstruction technique) TECHNICAL DOCUMENTATION: JOB ID: [id number] [employer] - [employer] [place]- All Rights Reserved Reading location - IP/workstation name: [email or web address]
[2019-07-07 16:25] VITALS: BP 129/79
--- NOTE | 2019-07-07 21:20 | EKG REPORT ---
SEVERITY:- OTHERWISE NORMAL ECG - SINUS TACHYCARDIA : Confirmed by: Garima Eden 07-Jul-2019 21:19:26
== END 2019-07-07 16:25 | disposition home or self-care (01) ==
LOC: ER 08:35
DX: G40.909 Epilepsy, unspecified, not intractable, without status epilepticus (principal); I10 Essential (primary) hypertension; Z91.14 Patient's other noncompliance with medication regimen
CPT/HCPCS: 93005; 36415; 80307 ×2; 83735; 80185; 85025; 80053; 81001; 71045; 70450; 93010; J1165; J0696; J7030; 96361; 96365; 96367; 99285

== ENCOUNTER 2019-07-20 10:56 | Emergency (ER) | payer MEDICARE, MEDICAID ==
[2019-07-20 13:24] LABS: APPEARANCE,URINE CLEAR; BILIRUBIN,URINE NEGATIVE (NEGATIVE); COLOR,URINE YELLOW; GLUCOSE, URINE NEGATIVE (NEGATIVE); KETONES,URINE NEGATIVE (NEGATIVE); LEUKOCYTE ESTERASE,URINE TRACE (NEGATIVE); NITRITE,URINE NEGATIVE (NEGATIVE); PROTEIN,URINE NEGATIVE (NEGATIVE); URINE SPECIFIC GRAVITY 1.014; UROBILINOGEN,URINE NEGATIVE mg/dL (<2.0)
[2019-07-20 13:25] LABS: HEMATOCRIT 37.8 % (37.9-51.0); MEAN CORPUSCULAR HEMOGLOBIN 21.9 pg (27.0-33.4); MEAN CORPUSCULAR HGB CONC 31.7 g/dL (32.0-36.0); MEAN CORPUSCULAR VOLUME 69 fl (80-97); PLATELET COUNT 234 10^3/uL (150-450); RED BLOOD COUNT 5.46 10^6/uL (4.35-5.55); RED CELL DISTRIBUTION WIDTH 15.6 % (11.5-14.0); WHITE BLOOD COUNT 4.3 10^3/uL (4.0-10.5)
[2019-07-20 13:33] LABS: ALBUMIN 3.7 g/dL (3.5-5.0); ALKALINE PHOSPHATASE 91 U/L (38-126); ANION GAP 8 (5-19); ASPARTATE AMINO TRANSFERASE 27 U/L (17-59); BILIRUBIN,DIRECT 0.5 mg/dL (0.0-0.4); BILIRUBIN,TOTAL 0.5 mg/dL (0.2-1.3); BLOOD UREA NITROGEN 13 mg/dL (7-20); CALCIUM 9.3 mg/dL (8.4-10.2); CARBON DIOXIDE 29 mmol/L (22-30); CHLORIDE 104 mmol/L (98-107); GLUCOSE 155 mg/dL (75-110); POTASSIUM 4.5 mmol/L (3.6-5.0); TOTAL PROTEIN 6.8 g/dL (6.3-8.2)
[2019-07-20 13:37] LABS: ALCOHOL < 10 mg/dL (NONE DETECTED)
[2019-07-20 13:42] LABS: URINE AMPHETAMINES SCREEN NEGATIVE; URINE BARBITURATES SCREEN NEGATIVE; URINE BENZODIAZEPINES SCREEN NEGATIVE; URINE COCAINE SCREEN NEGATIVE; URINE MARIJUANA (THC) SCREEN NEGATIVE; URINE METHADONE SCREEN NEGATIVE; URINE PHENCYCLIDINE SCREEN NEGATIVE
[2019-07-20 13:56] LABS: ABSOLUTE LYMPHOCYTES# (MANUAL) 1.5 10^3/uL (0.5-4.7); ABSOLUTE MONOCYTES # (MANUAL) 0.2 10^3/uL (0.1-1.4); BASOPHILS % (MANUAL) 0 % (0-2); EOSINOPHILS % (MANUAL) 5 % (0-6); LYMPHOCYTES % (MANUAL) 35 % (13-45); MONOCYTES % (MANUAL) 4 % (3-13); SEGMENTED NEUTROPHILS % (MAN) 56 % (42-78); TOTAL CELLS COUNTED 100
[2019-07-20 13:58] LABS: PLATELET COMMENT ADEQUATE
[2019-07-20 13:59] LABS: ANISOCYTOSIS SLIGHT; TARGET CELLS SLIGHT
[2019-07-20 14:00] LABS: PLATELET LARGE PRESENT; POIKILOCYTOSIS SLIGHT
[2019-07-20] MEDS ORDERED: PHENYTOIN SODIUM INJ/PF 100 MG/2 ML SDV IV ONE (15:25)
[2019-07-20] MEDS ORDERED: PHENYTOIN SODIUM INJ/PF 250 MG/5 ML SDV IV ONE (15:45)
--- NOTE | 2019-07-20 17:35 | ER Document Report ---
ED General - General Chief Complaint: Probable Seizure Stated Complaint: POSSIBLE SEIZURE Time Seen by Provider: 07/20/19 15:14 Primary Care Provider: VIGNESH ADAMS MD [Primary Care Provider] - Follow up as needed TRAVEL OUTSIDE OF THE [place] IN LAST 30 DAYS: No - Related Data Allergies/Adverse Reactions: No Known Allergies Allergy (Verified 06/14/19 22:26) Home Medications: phenytoin 300mg PO BID Past Medical History - Social History Smoking Status: Unknown if Ever Smoked Family History: None, Reviewed & Not Pertinent Patient has suicidal ideation: No Patient has homicidal ideation: No - Past Medical History Cardiac Medical History: Reports: Hx Hypertension Neurological Medical History: Reports: Hx Seizures - DILANTIN 300mg BID Renal/ Medical History: Denies: Hx Peritoneal Dialysis Psychiatric Medical History: Reports: Hx Bipolar Disorder Denies: Hx Depression Past Surgical History: Reports: Hx Orthopedic Surgery - Immunizations Hx Diphtheria, Pertussis, Tetanus Vaccination: No Physical Exam - Vital signs Vitals: Temp Resp BP Pulse Ox 98.5 F 22 H 133/88 H 96 07/20/19 11:04 07/20/19 11:04 07/20/19 11:04 07/20/19 11:04 - Notes Notes: Patient was brought in by family members with a witnessed seizure. Described tonic-clonic activity with a postictal state. Denies known history of seizures and has been here multiple times in the past with noncompliance. He does report he is been taking his medicines every day he denies any recent falls or head trauma. Denies any headaches fevers chest pain shortness of breath nausea vomiting or abdominal pain Past medical history is significant for seizures he has no diabetes or hypertension Medications currently on Dilantin they took him off Depakote. Social history does not smoke or drink Review of systems pertinent positives and negatives in HPI otherwise all the systems were reviewed and acutely negative PHYSICIAN EXAM -vital signs are noted triage note and note from triage reviewed GENERAL: Well-appearing, well-nourished and in ___acute distress___ HEAD: Atraumatic, normocephalic. EYES: Pupils equal round and reactive to light, extraocular movements intact, no nystagmus sclera anicteric, conjunctiva are normal. ENT: nares patent, oropharynx clear without exudates. Moist mucous membranes. NECK: supple without lymphadenopathy LUNGS: Breath sounds clear to auscultation bilaterally and equal. No wheezes rales or rhonchi. HEART: Regular rate and rhythm without murmurs ABDOMEN: Soft, nontender, normoactive bowel sounds. EXTREMITIES: No deformity, no edema. NEUROLOGICAL: Alert and oriented x4. Cranial nerves he has symmetrical smile facies and shoulder shrug. His motor strength is 5/5 bilaterally in the upper and lower extremities. Toes downgoing. Sensation is intact to light touch is a negative Romberg he has a slow deliberate speech but family says that his baseline PSYCH: Normal mood, normal affect. SKIN: Warm, Dry, normal turgor, no rashes or lesions noted. BACK-nontender in the midline Differential seizures noncompliance Addendum I did look at his pill bottle it was filled on the he should be out of it but his family says he has a large number of pills in his pocket patient said that he had another bottle at home but in reviewing his old chart he has been here multiple times before a therapeutic Dilantin Course - Re-evaluation Re-evalutation: 07/20/19 17:33 ED patient is remained stable serial exams neurologically intact. Was given IV Dilantin to bring his level up to therapeutic he has been able to ambulate Medical decision making patient presents with a seizure subtherapeutic on his Dilantin looks well can be discharged home. Some little hesitant to increase his Dilantin to 400 twice a day suspect most of his issue is noncompliance but patient is current level feel we probably need to do that. Help keep his level up if he only takes it once a day and at this point we will discharge him home with family they will check his medications any needs to be checked again in 1 week At this time there is no indication for admission. I have discussed the findings with patient/family with return precautions and follow-up recommendations. Verbal discharge instructions given at the bedside and opportunity for questions given. Medication warnings were given if indicated. Patient is in agreement with this plan and has verbalized understanding of return precautions and the need for primary care follow-up as directed.. 07/20/19 18:18 - Vital Signs Vital signs: Temp Pulse Resp BP Pulse Ox 98.5 F 24 H 137/95 H 94 07/20/19 11:04 07/20/19 18:01 07/20/19 18:00 07/20/19 17:59 - Laboratory Result Diagrams: 07/20/19 11:16 07/20/19 11:16 Laboratory results interpreted by me: 07/20/19 07/20/19 07/20/19 11:09 11:16 11:16 Hgb 12.0 L Hct 37.8 L MCV 69 L MCH 21.9 L MCHC 31.7 L RDW 15.6 H Glucose 155 H POC Glucose 154 H Direct Bilirubin 0.5 H Ur Leukocyte Esterase Phenytoin Valproic Acid 07/20/19 07/20/19 07/20/19 11:16 11:16 12:59 Hgb Hct MCV MCH MCHC RDW Glucose POC Glucose Direct Bilirubin Ur Leukocyte Esterase TRACE H Phenytoin 6.6 L Valproic Acid < 10.0 L - EKG Interpretation by Me Additional EKG results interpreted by me: 07/20/19 17:34 EKG shows a normal sinus rhythm with a rate of 84 normal axis and QRS Discharge - Discharge Clinical Impression: Seizure, Subtherapeutic serum dilantin level, Hyperglycemia, Elevated blood pressure reading Disposition: HOME, SELF-CARE Additional Instructions: Seizure, Known Epileptic You have had a seizure. Seizures may "break through" in an epileptic due to stress of infection or injury, a change in blood chemistry, or drug and alcohol use. Another common cause is failure to take medication as prescribed. Your doctor has evaluated your situation for the likely cause of this seizure. It is important that you follow his advice concerning any medication changes and follow-up care. Further testing of anti-seizure medication levels in your blood may be necessary. If you have a coach driver's license, it's important that you DO NOT DRIVE until given permission by your physician. This seizure must be reported to the [place] driver's license bureau. Call the doctor or return if seizures recur, or if new or unusual symptoms arise -- such as severe headache, confusion, excessive sleepiness, local weakness or numbness, neck stiffness, or fever. Palpitations (Irregular/Rapid Heartrate) Irregular or rapid heartbeat is called "palpitation." To diagnose the caus e of palpitation, we have to "catch it in the act" with an EKG. Sinus Tachycardia: This is a rapid (but NORMAL) rhythm that can be due to fever, pain, anxiety, lack of sleep, over-exertion, or drugs. Cold medications, caffeine, and diet pills are particularly likely to cause tachycardia. Usually, all that's required is rest, reassurance, and avoiding caffeine, alcohol, nicotine, and unnecessary medicines. Paroxysmal Atrial Tachycardia (PAT): This abnormally rapid heartbeat is caused by a "short circuit" in the electrical system of the heart. It is not dangerous, unless other heart disease is present. These attacks of PAT may occur occasionally for years. Medication is available for treatment. Paroxysmal Atrial Fibrillation or Atrial Flutter: This is irregular electrical activity in the upper heart chamber. These abnormal rhythms often occur with valve disease or in hearts damaged by hardening of the arteries. These rhythms usually require further testing, for example a cardiac echo. Premature Beats: Extra beats occur more commonly after caffeine, nicotine, alcohol, cold pills, diet pills. Emotional stress or fatigue also provoke them. Extra beats are only dangerous when heart disease is present. They usually need no treatment. If they're frequent, or if evidence of heart disease develops, medication can be given to suppress them. If we were unable to "catch" the palpitations on EKG, you should try to get an EKG immediately if the symptoms begin again. Contact the physician at once if you develop persistent lightheadedness, shortness of breath, chest pain, or swelling of the ankles. Please review the discharge instructions, they will tell you about your disease/injury and what you need to return to the ED for Return to the ED if you feel worse or can follow-up with your family doctor Start taking 4 of your Dilantin tablets in the morning and in the evening and take your evening dose tonight It is very important you take your Dilantin twice a day as directed You need to follow-up with your family doctor in 1 week to recheck your Dilantin level your blood pressure BP 1 your blood pressure was elevated today needs to be rechecked again in 1 to 2 weeks to determine if need to be on medication or have your medications ad justed. Untreated hypertension can cause heart attack stroke and kidney failure Forms: Elevated Blood Pressure Referrals: VIGNESH ADAMS MD [Primary Care Provider] - Follow up as needed
[2019-07-20 18:15] VITALS: BP 137/95
--- NOTE | 2019-07-20 19:30 | EKG REPORT ---
SEVERITY:- NORMAL ECG - SINUS RHYTHM : Confirmed by: Robb Puentes MD 20-Jul-2019 19:29:27
== END 2019-07-20 18:45 | disposition home or self-care (01) ==
LOC: ER 10:56
DX: G40.909 Epilepsy, unspecified, not intractable, without status epilepticus (principal); R89.2 Abnormal level of other drugs, medicaments and biological substances in specimens from other organs, systems and tissues; R73.9 Hyperglycemia, unspecified; I10 Essential (primary) hypertension; Z79.899 Other long term (current) drug therapy
CPT/HCPCS: 93005; 99284; 96374; 36415; 82962; 80307 ×2; 83735; 80185; 85025; 80053; 81001; 80164; 93010; J1165

== ENCOUNTER 2019-11-05 15:43 | Emergency (ER) | payer MEDICARE, MEDICAID ==
--- NOTE | 2019-11-05 16:10 | ER Document Report ---
ED Medical Screen (RME) - General Chief Complaint: Seizure Stated Complaint: SEIZURES Time Seen by Provider: 11/05/19 16:08 Primary Care Provider: VIGNESH ADAMS MD [Primary Care Provider] - Follow up as needed Mode of Arrival: Ambulatory Information source: Patient Notes: 54-year-old male presented to ED for complaint of having a history of seizures and he has been all over the place today and cannot find anything to eat or drink because he was kicked out of his friends house. He states his sister told him to come to the emergency room to get help with his medications and living arrangement. He states he moved to the area recently and does not have a doctor and now no longer has a place to live. He states he is on Dilantin has been taking it as ordered but he is almost out. I have greeted and performed a rapid initial assessment of this patient. A comprehensive ED assessment and evaluation of the patient, analysis of test results and completion of medical decision making process will be conducted by an additional ED providers. TRAVEL OUTSIDE OF THE [place] IN LAST 30 DAYS: No - Related Data Allergies/Adverse Reactions: No Known Allergies Allergy (Verified 06/14/19 22:26) Home Medications: Dilantin Past Medical History - Social History Frequency of alcohol use: None Drug Abuse: None - Past Medical History Cardiac Medical History: Reports: Hx Hypertension Neurological Medical History: Reports: Hx Seizures - DILANTIN 300mg BID Renal/ Medical History: Denies: Hx Peritoneal Dialysis Psychiatric Medical History: Reports: Hx Bipolar Disorder Denies: Hx Depression Past Surgical History: Reports: Hx Orthopedic Surgery - Immunizations Hx Diphtheria, Pertussis, Tetanus Vaccination: No Physical Exam - Vital signs Vitals: Temp Pulse Resp BP Pulse Ox 98.5 F 100 16 146/91 H 97 11/05/19 15:54 11/05/19 15:54 11/05/19 15:54 11/05/19 15:54 11/05/19 15:54 Course - Vital Signs Vital signs: Temp Pulse Resp BP Pulse Ox 98.5 F 100 16 146/91 H 97 11/05/19 15:54 11/05/19 15:54 11/05/19 15:54 11/05/19 15:54 11/05/19 15:54 Doctor's Discharge - Discharge Referrals: VIGNESH ADAMS MD [Primary Care Provider] - Follow up as needed
--- NOTE | 2019-11-05 17:30 | ER Document Report ---
ED Seizure - General Chief Complaint: Seizure Stated Complaint: SEIZURES Time Seen by Provider: 11/05/19 16:08 Primary Care Provider: VIGNESH ADAMS MD [Primary Care Provider] - Follow up as needed Mode of Arrival: Ambulatory Information source: Patient Notes: Patient is a 54-year-old male presenting to the emergency department requesting resources. Patient has a history of seizures, he takes Dilantin. His last seizure was 30 days ago. He states he recently moved back to the area and has been unable to see his primary care physician. He denies any other needs and denies any other medical history. In his chart he has a history of bipolar and schizophrenia. Patient currently denying any suicidal or homicidal ideations. - Related Data Allergies/Adverse Reactions: No Known Allergies Allergy (Verified 06/14/19 22:26) Home Medications: Dilantin Past Medical History - General Information source: Patient - Social History Smoking Status: Never Smoker Frequency of alcohol use: None Drug Abuse: None Family History: None, Reviewed & Not Pertinent Patient has suicidal ideation: No Patient has homicidal ideation: No - Past Medical History Cardiac Medical History: Reports: Hx Hypertension Neurological Medical History: Reports: Hx Seizures - DILANTIN 300mg BID Renal/ Medical History: Denies: Hx Peritoneal Dialysis Psychiatric Medical History: Reports: Hx Bipolar Disorder, Hx Schizophrenia Denies: Hx Depression Past Surgical History: Reports: Hx Orthopedic Surgery - Immunizations Hx Diphtheria, Pertussis, Tetanus Vaccination: No Review of Systems - Review of Systems Constitutional: No symptoms reported EENT: No symptoms reported Cardiovascular: No symptoms reported Respiratory: No symptoms reported Gastrointestinal: No symptoms reported Genitourinary: No symptoms reported Male Genitourinary: No symptoms reported Musculoskeletal: No symptoms reported Skin: No symptoms reported Hematologic/Lymphatic: No symptoms reported Neurological/Psychological: No symptoms reported Physical Exam - Vital signs Vitals: Temp Pulse Resp BP Pulse Ox 98.5 F 100 16 146/91 H 97 11/05/19 15:54 11/05/19 15:54 11/05/19 15:54 11/05/19 15:54 11/05/19 15:54 - Notes Notes: PHYSICAL EXAMINATION: GENERAL: Disheveled, appears to be stated age and in no acute distress. HEAD: Atraumatic, normocephalic. EYES: Pupils equal round and reactive to light, extraocular movements intact, sclera anicteric, conjunctiva are normal. ENT: Nares patent, oropharynx clear without exudates. Moist mucous membranes. NECK: Normal range of motion, supple without lymphadenopathy LUNGS: Breath sounds clear to auscultation bilaterally and equal. No wheezes rales or rhonchi. HEART: Regular rate and rhythm without murmurs ABDOMEN: Soft, nontender, nondistended abdomen. No guarding, no rebound. No masses appreciated. Musculoskeletal: Normal range of motion, no pitting or edema. No cyanosis. NEUROLOGICAL: Cranial nerves grossly intact. Normal speech, normal gait. Normal sensory, motor exams PSYCH: Anxious. SKIN: Warm, Dry, normal turgor, no rashes or lesions noted. Course - Re-evaluation Re-evalutation: 11/05/19 17:27 Upon review of patient's chart patient last saw his primary care provider, Dr. Adams in July. He was prescribed Dilantin. Patient has a prescription of Dilantin with him at the bedside. He is apparently newly homeless as he was kicked out of his residence possibly today. Patient reports he has been living in the [place]. It is unclear how long he has been living in a park as he told the triage provider that he was kicked out today however he tells me he has been homeless for the last 2 weeks. He has a history of bipolar and schizophrenia in his chart, he denies any history of this. Nursing staff reports to me that the patient's sister dropped him off here to get help with resources. They spoke with his sister who reports that he does have a mental health history and has been off of medications for 1 year. The patient's sister also reports that patient does have adequate supply of his Dilantin and she is picking up a new p rescription for him tomorrow. Patient is alert, he has pressured speech, he appears to be anxious. He denies any physical complaints today. 11/05/19 20:15 Patient's work-up today has been reassuring other than his mildly elevated Dilantin level. Patient was prescribed 300 mg of Dilantin every morning by Dr. Adams. In ER provider increase this to 400 mg every morning a few months ago. Previous to that he always had subtherapeutic Dilantin levels. Will have patient resume back to original schedule of 300 mg every morning. He will follow-up with Dr. Adams. Patient was seen by mental health as well as social work due to his request for help with housing. He was given resources by both mental health and social work. He will be discharged home at this time. - Vital Signs Vital signs: Temp Pulse Resp BP Pulse Ox 98.7 F 96 15 138/90 H 96 11/05/19 20:50 11/05/19 20:50 11/05/19 20:50 11/05/19 20:50 11/05/19 20:50 - Laboratory Result Diagrams: 11/05/19 18:11 11/05/19 18:11 Laboratory results interpreted by me: 11/05/19 11/05/19 11/05/19 18:11 18:11 18:11 Hgb 12.0 L Hct 36.8 L MCV 68 L MCH 22.3 L RDW 15.9 H Glucose 113 H Urine Ketones Urine Blood Urine Urobilinogen Leukocyte Esterase Rfl Phenytoin 21.6 H* 11/05/19 18:15 Hgb Hct MCV MCH RDW Glucose Urine Ketones TRACE H Urine Blood SMALL H Urine Urobilinogen 4.0 H Leukocyte Esterase Rfl MODERATE H Phenytoin Discharge - Discharge Clinical Impression: Medication care plan discussed with patient, Homelessness Condition: Stable Disposition: HOME, SELF-CARE Additional Instructions: Your Dilantin level today was slightly elevated however it was not at toxic levels. Upon reviewing your records it looks like you were taking 3 tablets of Dilantin in the morning until you were seen in the emergency department and then increase your dose to 4 tablets. Please resume taking 3 tablets of your Dilantin every morning as initially prescribed by your primary care physician. Please call your primary care provider to set up an appointment for a follow-up and repeat Dilantin levels. Referrals: VIGNESH ADAMS MD [Primary Care Provider] - Follow up as needed
[2019-11-05 18:21] LABS: ABSOLUTE BASOPHILS # (AUTO) 0.1 10^3/uL (0.0-0.2); ABSOLUTE LYMPHOCYTES (AUTO) 2.3 10^3/uL (0.5-4.7); ABSOLUTE MONOCYTES (AUTO) 0.5 10^3/uL (0.1-1.4); ABSOLUTE NEUT (AUTO) 4.8 10^3/uL (1.7-8.2); BASOPHILS % (AUTO) 0.8 % (0-2); EOSINOPHILS % (AUTO) 0.5 % (0-6); HEMATOCRIT 36.8 % (37.9-51.0); LYMPHOCYTES % (AUTO) 29.4 % (13-45); MEAN CORPUSCULAR HEMOGLOBIN 22.3 pg (27.0-33.4); MEAN CORPUSCULAR HGB CONC 32.7 g/dL (32.0-36.0); MEAN CORPUSCULAR VOLUME 68 fl (80-97); MONOCYTES % (AUTO) 6.5 % (3-13); PLATELET COUNT 211 10^3/uL (150-450); RED BLOOD COUNT 5.38 10^6/uL (4.35-5.55); RED CELL DISTRIBUTION WIDTH 15.9 % (11.5-14.0); SEGMENTED NEUTROPHILS % (AUTO) 62.8 % (42-78); TOTAL CELLS COUNTED % (AUTO) 100 %; WHITE BLOOD COUNT 7.7 10^3/uL (4.0-10.5)
[2019-11-05 18:38] LABS: ANISOCYTOSIS SLIGHT; OVALOCYTES SLIGHT; PLATELET COMMENT ADEQUATE; POIKILOCYTOSIS SLIGHT; TARGET CELLS 1+
[2019-11-05 18:43] LABS: ALBUMIN 4.4 g/dL (3.5-5.0); ALKALINE PHOSPHATASE 116 U/L (38-126); ANION GAP 8 (5-19); ASPARTATE AMINO TRANSFERASE 24 U/L (17-59); BILIRUBIN,TOTAL 0.6 mg/dL (0.2-1.3); BLOOD UREA NITROGEN 11 mg/dL (7-20); CALCIUM 9.5 mg/dL (8.4-10.2); CARBON DIOXIDE 30 mmol/L (22-30); CHLORIDE 100 mmol/L (98-107); GLUCOSE 113 mg/dL (75-110); POTASSIUM 4.3 mmol/L (3.6-5.0); TOTAL PROTEIN 7.5 g/dL (6.3-8.2)
[2019-11-05 18:44] LABS: ALCOHOL < 10 mg/dL (NONE DETECTED)
[2019-11-05 19:02] LABS: APPEARANCE,URINE CLEAR; BILIRUBIN,URINE NEGATIVE (NEGATIVE); COLOR,URINE YELLOW; GLUCOSE, URINE NEGATIVE (NEGATIVE); KETONES,URINE TRACE mg/dL (NEGATIVE); PROTEIN,URINE NEGATIVE (NEGATIVE); URINE SPECIFIC GRAVITY 1.026
[2019-11-05 19:47] LABS: URINE AMPHETAMINES SCREEN NEGATIVE; URINE BARBITURATES SCREEN NEGATIVE; URINE BENZODIAZEPINES SCREEN NEGATIVE; URINE COCAINE SCREEN NEGATIVE; URINE MARIJUANA (THC) SCREEN NEGATIVE; URINE METHADONE SCREEN NEGATIVE; URINE PHENCYCLIDINE SCREEN NEGATIVE
[2019-11-05 20:52] VITALS: BP 138/90
--- NOTE | 2019-11-05 21:01 | PSYCHOLOGICAL NOTE ---
Psych Note - Psych Note Date seen by psych provider: 11/05/19 Time seen by psych provider: 18:10 Psych Note: Patient is a 54-year-old male who presents to ED via POV seeking assistance with refill of seizure medications. Per chart review, patient's sister is concerned for patient as he is experiencing homelessness and has not had mental health medications to manage reported mental health diagnosis of Bipolar Disorder and Schizophrenia for a year. Patient has family in the area, however they are unable to provide assistance. Patient sister requested mental health evaluation. Per chart review, sister spoke with Eloy Quezada who explained to sister that patient would be discharged if he did not meet IVC criteria. Sister was explained that the ED did not assist with housing, the homeless group home is unable to provide assistance due to the COVID-19 pandemic. Patient receives $1000 a month from [employer]. Patient was last last evaluated by behavioral health on 12/31/2017 accompanied by his sister with concerns for paranoia. Patient states he is in the emergency department to refill his seizure medications. Patient denies mental health concerns. Clinician woke with patient regarding his sisters concerns with patient experiencing homelessness and mental health diagnoses of bipolar and schizophrenia. Patient reports he has seizures however denies mental health concerns of bipolar and schizophrenia. Patient spoke of traveling back and forth between [place] and [place]. Patient states his sister told him to come to the ED to discuss housing options. Clinician informed patient that the ED does not assist with housing, however patient receives Medicaid and Medicare and he could be linked to [facility] ([place]) for housing assistance. Clinician spoke with patient's sister, Corin ([phone]) and advised her of discharge. Clinician explained the resources patient would receive ([employer] resource sheet, economic resource sheet with information for housing and local soup kitchen, and an outpatient mental health resource list). Corin reports patient has been approved by section 8 housing for an apartment at [facility]; however at this time it is unknown when patient will be able to take possession of the apartment. Corin states patient is focused on maintaining his autonomy and independence. Patient is alert and oriented to name and date of to include correctly identifying he was born in [birth year]. Mood is normal with congruent affect. Patient denies suicidal and homicidal ideations. There is no observed behavior that suggests patient is responding to internal stimuli. Patient is able to engage in somewhat organized, rational thought processes. Patient is able to express needs and wants in a logical manner. Patient denies current auditory and visual hallucinations. Patient's eyes appear to be bloodshot. Eye contact is appropriate. Conversational speech is somewhat pressured and difficult to understand. Intellectual ability appears to be below average range. Attention and concentration are fair. Insight, judgment and impulse control are currently fair to poor. Therapeutic interventions: Clinician explained the 3 resource sheets in detail. Discussed utilizing support systems while he waits for his apartment to become available. Discussed the importance of taking his medication daily to maintain stability. Discussed utilizing the mental health resource sheet to reach out to a mental health provider of his choosing to maintain mental health stability. Focused on health, wellness, and nutrition. Discussed the importance of piyush responsibility of his SSDI stipend. Plan: 1. Patient is cleared from acute psychiatric services. 2. a) Patient reports socioeconomic needs versus psychiatric crisis b) Patient was receptive to interventions c)Patient reports he is only at the ED to obtain a refill of his seizure medication. 3. Patient was provided and explained in detail with the following resources: [employer] resource sheet, socioeconomic resource sheet of community resources that includes housing and the local soup kitchen, and an outpatient mental health resource list. 4. Patient's sister will cigar packer and picker medication from the pharmacy tomorrow. 5. Clinician contacted sister to advise of discharge and advised of aftercare plan. Sister has agreed to assist patient after discharge to the degree he allows her to assist. Dr. Fragoso was consulted on the care and management of this patient; attending physician is in agreement with recommendations and disposition.
== END 2019-11-05 20:56 | disposition home or self-care (01) ==
LOC: ER 15:43
DX: R56.9 Unspecified convulsions (principal); Z79.899 Other long term (current) drug therapy; Z59.0 Homelessness; I10 Essential (primary) hypertension
CPT/HCPCS: 36415; 80053; 80185; 80307; 81001; 83690; 85025; 87086; 99283

== ENCOUNTER 2019-12-03 22:21 | Emergency (ER) | payer MEDICARE, MEDICAID ==
--- NOTE | 2019-12-03 23:37 | ER Document Report ---
ED Medical Screen (RME) - General Chief Complaint: Medication Refill Stated Complaint: POSSIBLE SEIZURES Time Seen by Provider: 12/03/19 23:31 Primary Care Provider: VIGNESH ADAMS MD [Primary Care Provider] - Follow up as needed Mode of Arrival: Ambulatory Information source: Patient Notes: 54-year-old male presented to ED for complaint of feeling like his seizure is going to come on. He states that he went and saw his primary care doctor a couple days ago and he did give him his Dilantin. He states he takes it every morning and every night. He states he did not take it yesterday or today. He is alert and oriented at this time. Will get labs drawl and Dilantin level. I have greeted and performed a rapid initial assessment of this patient. A comprehensive ED assessment and evaluation of the patient, analysis of test results and completion of medical decision making process will be conducted by an additional ED providers. TRAVEL OUTSIDE OF THE [place] IN LAST 30 DAYS: No - Related Data Allergies/Adverse Reactions: No Known Allergies Allergy (Verified 12/03/19 22:27) Past Medical History - Social History Chew tobacco use (# tins/day): Yes Frequency of alcohol use: None - Past Medical History Cardiac Medical History: Reports: Hx Hypertension Neurological Medical History: Reports: Hx Seizures - DILANTIN 300mg BID Renal/ Medical History: Denies: Hx Peritoneal Dialysis Psychiatric Medical History: Reports: Hx Bipolar Disorder, Hx Schizophrenia Denies: Hx Depression Past Surgical History: Reports: Hx Orthopedic Surgery - Immunizations Hx Diphtheria, Pertussis, Tetanus Vaccination: No Physical Exam - Vital signs Vitals: Temp 97.5 F 12/03/19 22:27 Course - Vital Signs Vital signs: Temp Pulse Resp BP Pulse Ox 97.5 F 12/03/19 22:27 Doctor's Discharge - Discharge Referrals: VIGNESH ADAMS MD [Primary Care Provider] - Follow up as needed
--- NOTE | 2019-12-04 00:03 | ER Document Report ---
ED General - General Chief Complaint: Medication Refill Stated Complaint: POSSIBLE SEIZURES Time Seen by Provider: 12/03/19 23:31 Primary Care Provider: VIGNESH ADAMS MD [Primary Care Provider] - Follow up as needed Mode of Arrival: Ambulatory Notes: 54-year-old male presents emergency department stating that he thinks he is getting ready to have a seizure. Patient states he felt shaky area earlier today and he always feels that way when he is about to have a seizure. Patient states that he took his last dose of phenytoin yesterday, went to see his primary care physician but there is not a prescription ready so he needs to have his phenytoin refilled. Patient also notes that he was switched from Dilantin to phenytoin just recently, does not know why he was switched. Patient states aside from feeling shaky he feels fine. Denies drinking any alcohol. TRAVEL OUTSIDE OF THE [place] IN LAST 30 DAYS: No - Related Data Allergies/Adverse Reactions: No Known Allergies Allergy (Verified 12/03/19 22:27) Past Medical History - General Information source: Patient - Social History Smoking Status: Never Smoker Chew tobacco use (# tins/day): Yes Frequency of alcohol use: None Family History: None, Reviewed & Not Pertinent Patient has homicidal ideation: No - Past Medical History Cardiac Medical History: Reports: Hx Hypertension Neurological Medical History: Reports: Hx Seizures - DILANTIN 300mg BID Renal/ Medical History: Denies: Hx Peritoneal Dialysis Psychiatric Medical History: Reports: Hx Bipolar Disorder, Hx Schizophrenia Denies: Hx Depression Past Surgical History: Reports: Hx Orthopedic Surgery - Immunizations Hx Diphtheria, Pertussis, Tetanus Vaccination: No Review of Systems - Review of Systems Constitutional: No symptoms reported EENT: No symptoms reported Neurological/Psychological: See HPI, Other - [place] like he was about to have a seizure, also states he thinks he may have had a small seizure where he felt a little bit shaky. -: Yes All other systems reviewed and negative Physical Exam - Vital signs Vitals: Temp Pulse Resp BP Pulse Ox 97.5 F 93 16 145/84 H 96 12/03/19 22:26 12/03/19 22:26 12/03/19 22:26 12/03/19 22:26 12/03/19 22:26 Interpretation: Normal - Notes Notes: GENERAL: Alert, interacts well. No acute distress. HEAD: Normocephalic, atraumatic EYES: Pupils equal, round and reactive to light, extraocular movements intact. Conjunctiva are injected, there is no discharge. ENT: Oral mucosa moist, tongue midline. NECK: Full range of motion, supple, trachea midline. LUNGS: Clear to auscultation bilaterally, no wheezes, rales or rhonchi, no respiratory distress. HEART: Regular rate and rhythm, no murmurs, gallops, rubs. ABDOMEN: Soft, nontender, nondistended, bowel sounds present in all 4 quadrants. EXTREMITIES: Moves all 4 extremities spontaneously, no edema, radial and dorsal is pedis pulses 2/4 bilaterally. No cyanosis. NEUROLOGICAL: Alert and oriented x3, normal speech, no facial droop, biceps and patellar DTRs 2+ bilaterally. PSYCH: Normal mood, normal affect. No evidence of the pressured speech noted by other personnel. SKIN: Warm, Dry, normal turgor, no rashes or lesions noted. Course - Re-evaluation Re-evalutation: 12/04/19 02:38 CBC shows mild anemia with hemoglobin 12.7,CMP unremarkable, UA shows large LE, but he has no symptoms so this will send for culture. Phenytoin level is actually elevated at 24.9. I will prescribe a 1 week supply of his phenytoin but I will ask him to not take it for 2 days and then have his levels rechecked. Patient is to follow-up with Dr. Adams as an outpatient to determine exact dosing of phenytoin. - Vital Signs Vital signs: Temp Pulse Resp BP Pulse Ox 97.5 F 93 16 145/84 H 96 12/03/19 22:27 12/03/19 22:26 12/03/19 22:26 12/03/19 22:26 12/03/19 22:26 - Laboratory Result Diagrams: 12/04/19 00:19 12/04/19 00:19 Laboratory results interpreted by me: 12/04/19 12/04/19 12/04/19 00:03 00:19 00:19 RBC 5.82 H Hgb 12.7 L MCV 70 L MCH 21.8 L MCHC 31.4 L RDW 16.3 H Urine Urobilinogen 2.0 H Ur Leukocyte Esterase LARGE H Phenytoin 24.9 H* - EKG Interpretation by Me Additional EKG results interpreted by me: 12/04/19 02:40 EKG shows sinus rhythm at a rate of 70, normal axis, normal intervals, no ST segment elevations or depressions, no T wave inversions per my interpretation. Discharge - Discharge Clinical Impression: Seizure disorder, Medication refill Condition: Stable Disposition: HOME, SELF-CARE Additional Instructions: Today your phenytoin level was actually elevated. I would like you to wait 1 more day and then start taking your phenytoin 3 tablets twice a day for the next week and then have your levels rechecked by Dr. Adams. I have only written a 1 week prescription of your medication. He may need to prescribe a lower dose than what you have been previously taking. Prescriptions: Phenytoin Sodium Extended 300 mg PO BID #60 capsule Referrals: VIGNESH ADAMS MD [Primary Care Provider] - Follow up as needed
[2019-12-04 00:36] LABS: APPEARANCE,URINE SLIGHTLY-CLOUDY; BILIRUBIN,URINE NEGATIVE (NEGATIVE); COLOR,URINE YELLOW; GLUCOSE, URINE NEGATIVE (NEGATIVE); KETONES,URINE NEGATIVE (NEGATIVE); LEUKOCYTE ESTERASE,URINE LARGE (NEGATIVE); NITRITE,URINE NEGATIVE (NEGATIVE); PROTEIN,URINE NEGATIVE (NEGATIVE); URINE SPECIFIC GRAVITY 1.028
[2019-12-04 00:48] LABS: ALBUMIN 4.6 g/dL (3.5-5.0); ALCOHOL < 10 mg/dL (NONE DETECTED); ALKALINE PHOSPHATASE 124 U/L (38-126); ANION GAP 6 (5-19); ASPARTATE AMINO TRANSFERASE 28 U/L (17-59); BILIRUBIN,TOTAL 0.3 mg/dL (0.2-1.3); BLOOD UREA NITROGEN 14 mg/dL (7-20); CALCIUM 9.2 mg/dL (8.4-10.2); CARBON DIOXIDE 29 mmol/L (22-30); CHLORIDE 104 mmol/L (98-107); GLUCOSE 103 mg/dL (75-110); POTASSIUM 4.1 mmol/L (3.6-5.0); TOTAL PROTEIN 7.8 g/dL (6.3-8.2)
[2019-12-04 00:52] LABS: HEMATOCRIT 40.5 % (37.9-51.0); HEMOGLOBIN 12.7 g/dL (13.5-17.0); MEAN CORPUSCULAR HEMOGLOBIN 21.8 pg (27.0-33.4); MEAN CORPUSCULAR HGB CONC 31.4 g/dL (32.0-36.0); MEAN CORPUSCULAR VOLUME 70 fl (80-97); PLATELET COUNT 221 10^3/uL (150-450); RED BLOOD COUNT 5.82 10^6/uL (4.35-5.55); RED CELL DISTRIBUTION WIDTH 16.3 % (11.5-14.0); WHITE BLOOD COUNT 5.1 10^3/uL (4.0-10.5)
[2019-12-04 00:58] LABS: ABSOLUTE LYMPHOCYTES# (MANUAL) 2.3 10^3/uL (0.5-4.7); ABSOLUTE MONOCYTES # (MANUAL) 0.2 10^3/uL (0.1-1.4); BASOPHILS % (MANUAL) 0 % (0-2); EOSINOPHILS % (MANUAL) 1 % (0-6); LYMPHOCYTES % (MANUAL) 43 % (13-45); MONOCYTES % (MANUAL) 4 % (3-13); SEGMENTED NEUTROPHILS % (MAN) 49 % (42-78); TOTAL CELLS COUNTED 100; TOXIC GRANULATION 1+; TOXIC VACUOLATION PRESENT
[2019-12-04 01:00] LABS: ANISOCYTOSIS 2+; OVALOCYTES 2+; PLATELET COMMENT ADEQUATE; POIKILOCYTOSIS 2+; SCHISTOCYTES SLIGHT; TARGET CELLS SLIGHT; TEAR DROP CELLS 1+
[2019-12-04 02:56] VITALS: BP 128/89
--- NOTE | 2019-12-04 08:10 | EKG REPORT ---
SEVERITY:- NORMAL ECG - SINUS RHYTHM : Confirmed by: Ashley Balderas MD 04-Dec-2019 08:10:17
== END 2019-12-04 02:57 | disposition home or self-care (01) ==
LOC: ER 22:21
DX: Z76.0 Encounter for issue of repeat prescription (principal); G40.909 Epilepsy, unspecified, not intractable, without status epilepticus
CPT/HCPCS: 36415; 80053; 80185; 80307; 81001; 85025; 87086; 93005; 93010; 99282

== ENCOUNTER 2019-12-25 10:24 | Emergency (ER) | payer MEDICARE, MEDICAID ==
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
[2019-12-25 11:45] LABS: HEMATOCRIT 34.8 % (37.9-51.0); HEMOGLOBIN 11.1 g/dL (13.5-17.0); MEAN CORPUSCULAR VOLUME 69 fl (80-97); PLATELET COUNT 218 10^3/uL (150-450); RED BLOOD COUNT 5.06 10^6/uL (4.35-5.55); RED CELL DISTRIBUTION WIDTH 16.2 % (11.5-14.0); WHITE BLOOD COUNT 7.6 10^3/uL (4.0-10.5)
[2019-12-25 11:47] LABS: APPEARANCE,URINE CLEAR; BILIRUBIN,URINE NEGATIVE (NEGATIVE); COLOR,URINE YELLOW; GLUCOSE, URINE NEGATIVE (NEGATIVE); KETONES,URINE NEGATIVE (NEGATIVE); LEUKOCYTE ESTERASE,URINE NEGATIVE (NEGATIVE); NITRITE,URINE NEGATIVE (NEGATIVE); PROTEIN,URINE NEGATIVE (NEGATIVE); URINE SPECIFIC GRAVITY 1.021; UROBILINOGEN,URINE NEGATIVE mg/dL (<2.0)
[2019-12-25 12:00] LABS: ALBUMIN 4.1 g/dL (3.5-5.0); ALKALINE PHOSPHATASE 93 U/L (38-126); ANION GAP 5 (5-19); ASPARTATE AMINO TRANSFERASE 19 U/L (17-59); BILIRUBIN,TOTAL 0.4 mg/dL (0.2-1.3); BLOOD UREA NITROGEN 13 mg/dL (7-20); CALCIUM 9.1 mg/dL (8.4-10.2); CARBON DIOXIDE 28 mmol/L (22-30); CHLORIDE 105 mmol/L (98-107); GLUCOSE 95 mg/dL (75-110); POTASSIUM 4.3 mmol/L (3.6-5.0); TOTAL PROTEIN 6.8 g/dL (6.3-8.2); URINE AMPHETAMINES SCREEN NEGATIVE; URINE BARBITURATES SCREEN NEGATIVE; URINE BENZODIAZEPINES SCREEN NEGATIVE; URINE COCAINE SCREEN NEGATIVE; URINE MARIJUANA (THC) SCREEN NEGATIVE; URINE METHADONE SCREEN NEGATIVE; URINE PHENCYCLIDINE SCREEN NEGATIVE
[2019-12-25 12:03] LABS: ALCOHOL < 10 mg/dL (NONE DETECTED)
[2019-12-25 12:05] LABS: ABSOLUTE LYMPHOCYTES# (MANUAL) 0.9 10^3/uL (0.5-4.7); ABSOLUTE MONOCYTES # (MANUAL) 0.7 10^3/uL (0.1-1.4); BASOPHILS % (MANUAL) 0 % (0-2); EOSINOPHILS % (MANUAL) 0 % (0-6); LYMPHOCYTES % (MANUAL) 12 % (13-45); MONOCYTES % (MANUAL) 9 % (3-13); SEGMENTED NEUTROPHILS % (MAN) 79 % (42-78); TOTAL CELLS COUNTED 100
[2019-12-25 12:06] LABS: ANISOCYTOSIS 1+; HYPOCHROMASIA 1+; OVALOCYTES 1+; PLATELET COMMENT ADEQUATE
[2019-12-25 13:17] VITALS: BP 138/88
== END 2019-12-25 13:17 | disposition home or self-care (01) ==
LOC: ER 10:24
DX: R56.9 Unspecified convulsions (principal); Z79.899 Other long term (current) drug therapy; I10 Essential (primary) hypertension
CPT/HCPCS: 36415; 80053; 80185; 80307; 81001; 83735; 85025; 99284

== ENCOUNTER 2020-04-01 10:57 | Inpatient (IN) | payer MEDICARE, MEDICAID ==
[2020-04-01 11:43] LABS: APPEARANCE,URINE CLEAR; BILIRUBIN,URINE NEGATIVE (NEGATIVE); COLOR,URINE YELLOW; GLUCOSE, URINE NEGATIVE (NEGATIVE); KETONES,URINE NEGATIVE (NEGATIVE); LEUKOCYTE ESTERASE,URINE MODERATE (NEGATIVE); NITRITE,URINE NEGATIVE (NEGATIVE); PROTEIN,URINE NEGATIVE (NEGATIVE); URINE SPECIFIC GRAVITY 1.021; UROBILINOGEN,URINE NEGATIVE mg/dL (<2.0)
[2020-04-01 12:11] LABS: URINE AMPHETAMINES SCREEN NEGATIVE; URINE BARBITURATES SCREEN NEGATIVE; URINE BENZODIAZEPINES SCREEN NEGATIVE; URINE COCAINE SCREEN NEGATIVE; URINE MARIJUANA (THC) SCREEN NEGATIVE; URINE METHADONE SCREEN NEGATIVE; URINE PHENCYCLIDINE SCREEN NEGATIVE
[2020-04-01 12:37] LABS: HEMATOCRIT 36.5 % (37.9-51.0); HEMOGLOBIN 11.6 g/dL (13.5-17.0); MEAN CORPUSCULAR HEMOGLOBIN 22.1 pg (27.0-33.4); MEAN CORPUSCULAR HGB CONC 31.8 g/dL (32.0-36.0); MEAN CORPUSCULAR VOLUME 69 fl (80-97); PLATELET COUNT 242 10^3/uL (150-450); RED BLOOD COUNT 5.26 10^6/uL (4.35-5.55); RED CELL DISTRIBUTION WIDTH 16.5 % (11.5-14.0); WHITE BLOOD COUNT 5.2 10^3/uL (4.0-10.5)
[2020-04-01] MEDS ORDERED: LORAZEPAM INJ 2 MG/1 ML VIAL IV ONE (12:40)
[2020-04-01 12:51] LABS: ALBUMIN 4.2 g/dL (3.5-5.0); ALKALINE PHOSPHATASE 109 U/L (38-126); ANION GAP 5 (5-19); ASPARTATE AMINO TRANSFERASE 22 U/L (17-59); BILIRUBIN,DIRECT 0.3 mg/dL (0.0-0.4); BILIRUBIN,TOTAL 0.5 mg/dL (0.2-1.3); BLOOD UREA NITROGEN 12 mg/dL (7-20); CALCIUM 9.4 mg/dL (8.4-10.2); CARBON DIOXIDE 28 mmol/L (22-30); CHLORIDE 108 mmol/L (98-107); GLUCOSE 103 mg/dL (75-110); POTASSIUM 4.6 mmol/L (3.6-5.0); TOTAL PROTEIN 6.8 g/dL (6.3-8.2)
[2020-04-01 12:54] LABS: ABSOLUTE LYMPHOCYTES# (MANUAL) 1.9 10^3/uL (0.5-4.7); ABSOLUTE MONOCYTES # (MANUAL) 0.1 10^3/uL (0.1-1.4); ANISOCYTOSIS 1+; BASOPHILS % (MANUAL) 0 % (0-2); EOSINOPHILS % (MANUAL) 4 % (0-6); LYMPHOCYTES % (MANUAL) 36 % (13-45); MONOCYTES % (MANUAL) 1 % (3-13); PLATELET COMMENT ADEQUATE; SEGMENTED NEUTROPHILS % (MAN) 59 % (42-78); TOTAL CELLS COUNTED 100
[2020-04-01 12:55] LABS: ALCOHOL < 10 mg/dL (NONE DETECTED); OVALOCYTES 1+; POIKILOCYTOSIS 1+; POLYCHROMASIA SLIGHT; TARGET CELLS 1+
[2020-04-01] MEDS ORDERED: PHENYTOIN SODIUM INJ/PF 250 MG/5 ML SDV IV ONE (13:25)
--- NOTE | 2020-04-01 14:23 | RADIOLOGY REPORT (SQ) ---
EXAM DESCRIPTION: CT HEAD WITHOUT IMAGES COMPLETED DATE/TIME: 04/01/2020 2:15 pm REASON FOR STUDY: ams COMPARISON: 07/07/2019 TECHNIQUE: Axial images acquired through the brain without intravenous contrast. Images reviewed wi th bone, brain and subdural windows. Additional sagittal and coronal reconstructions were generated. Images stored on PACS. All CT scanners at this facility use dose modulation, iterative reconstruction, and/or weight based d osing when appropriate to reduce radiation dose to as low as reasonably achievable (ALARA). [facility]: Dose Right [facility]: CareDose [facility]: Dose Right [facility]: Teradose 4D [facility]: [place] RADIATION DOSE: CT Rad equipment meets quality standard of care and radiation dose reduction techniq ues were employed. CTDIvol: 53.2 mGy. DLP: 1070 mGy-cm. mGy. LIMITATIONS: None. FINDINGS: VENTRICLES: Normal size and contour. CEREBRUM: No masses. No hemorrhage. No midline shift. No evidence for acute infarction. Normal gra y/white matter differentiation. No areas of low density in the white matter. CEREBELLUM: No masses. No hemorrhage. No alteration of density. No evidence for acute infarction. EXTRAAXIAL SPACES: No fluid collections. No masses. ORBITS AND GLOBE: No intra- or extraconal masses. Normal contour of globe without masses. CALVARIUM: No fracture. PARANASAL SINUSES: No fluid or mucosal thickening. SOFT TISSUES: No mass or hematoma. OTHER: No other significant finding. IMPRESSION: NORMAL BRAIN CT WITHOUT CONTRAST. EVIDENCE OF ACUTE STROKE: NO. COMMENT: Quality ID # [id number]: Final reports with documentation of one or more dose reduction techniques (e.g., Automated exposure control, adjustment of the mA and/or kV according to patient size, use of iterative reconstruction technique) TECHNICAL DOCUMENTATION: JOB ID: [id number] 2010 [employer]- All Rights Reserved Reading location - IP/workstation name: [email or web address]
[2020-04-01] MEDS ORDERED: CEFTRIAXONE 1 GM/D5W RTU 1 GM/50 ML RTUPB IV ONE (14:34)
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
[2020-04-01] MEDS ORDERED: ACETAMINOPHEN 325 MG TABLET PO PRN (15:14)
[2020-04-01] MEDS ORDERED: NORMAL SALINE 1000 ML 1,000 ML IV PRN (15:14)
--- NOTE | 2020-04-01 15:38 | RADIOLOGY REPORT (SQ) ---
EXAM DESCRIPTION: CHEST SINGLE VIEW IMAGES COMPLETED DATE/TIME: 04/01/2020 3:29 pm REASON FOR STUDY: ams COMPARISON: 07/07/2019 EXAM PARAMETERS: NUMBER OF VIEWS: One view. TECHNIQUE: Single frontal radiographic view of the chest acquired. RADIATION DOSE: NA LIMITATIONS: None. FINDINGS: LUNGS AND PLEURA: No opacities, masses or pneumothorax. No pleural effusion. MEDIASTINUM AND HILAR STRUCTURES: No masses. Contour normal. HEART AND VASCULAR STRUCTURES: Heart normal in size. Normal vasculature. BONES: No acute findings. HARDWARE: None in the chest. OTHER: No other significant finding. IMPRESSION: NO ACUTE RADIOGRAPHIC FINDING IN THE CHEST. TECHNICAL DOCUMENTATION: JOB ID: [id number] 2010 [employer]- All Rights Reserved Reading location - IP/workstation name: [email or web address]
[2020-04-01] MEDS ORDERED: LORAZEPAM INJ 2 MG/1 ML VIAL IV PRN (15:43)
[2020-04-01 16:46] LABS: ARTERIAL BLOOD BASE EXCESS -0.8 mmol/L; ARTERIAL BLOOD H2CO3 1.49 mmol/L (1.05-1.35); ARTERIAL BLOOD HCO3 25.6 mmol/L (20-24); ARTERIAL BLOOD O2 SATURATION 97.8 % (94-98); ARTERIAL BLOOD PCO2 49.4 mmHg (35-45); ARTERIAL BLOOD PH 7.33 (7.35-7.45); ARTERIAL BLOOD PO2 112.2 mmHg (80-100); ARTERIAL BLOOD TOTAL CO2 27.1 mmol/L (23-27)
[2020-04-01 16:47] LABS: ARTERIAL BLOOD FIO2 2L
[2020-04-01 17:04] LABS: ANION GAP 10 (5-19); BLOOD UREA NITROGEN 10 mg/dL (7-20); CALCIUM 9.5 mg/dL (8.4-10.2); CARBON DIOXIDE 30 mmol/L (22-30); CHLORIDE 104 mmol/L (98-107); GLUCOSE 96 mg/dL (75-110)
--- NOTE | 2020-04-01 18:11 | PDOC H&P ---
History of Present Illness Admission Date/PCP: VIGNESH ADAMS MD Patient complains of: Seizures disorders History of Present Illness: SHANTELL DE DIOS is a 54 year old male This is a 54-year-old male's with a known history of the seizures disorder very noncompliance history of the bipolar schizophrenia depressions not following the psych was found not responding in a roadside and EMS picked the patient patient in the emergency department alert awake and oriented patient have a 1 seizures episode received a Dilantin And lorazepam Patient in the emergency department was confused at the most likely postictal phase with underlying all bipolar and not taking the medications Patient's otherwise alert awake not fully oriented due to the seizures conditions Patient initial CT of the head and blood work is all stable Past Medical History Cardiac Medical History: Reports: Hypertension Neurological Medical History: Reports: Seizures - DILANTIN 300mg BID Psychiatric Medical History: Reports: Bipolar Disorder, Schizoaffective Disorder Denies: Depression Past Surgical History Past Surgical History: Reports: Orthopedic Surgery Social History Smoking Status: Current Every Day Smoker Electronic Cigarette use?: No Frequency of Alcohol Use: None Hx Recreational Drug Use: No Drugs: None Hx Prescription Drug Abuse: No Family History Family History: None, Reviewed & Not Pertinent Parental Family History Reviewed: Yes Children Family History Reviewed: Yes Sibling(s) Family History Reviewed.: Yes Medication/Allergy Home Medications: Calcium Carbonate/Vitamin D3 [Calcium 500-Vit D3 125 Caplet] 1 tab PO DAILY 0 09/05/18 Chlorthalidone [Hygroton 25 mg Tablet] 25 mg PO QAM 09/05/18 Cholecalciferol (Vitamin D3) [Vitamin D3 1000 Unit Tablet] 1,000 unit PO DAILY 09/05/18 Divalproex Sodium [Depakote ER 250 mg Tablet] 250 mg PO BID 09/05/18 Divalproex Sodium [Depakote ER 500 mg Tab.sr] 500 mg PO BID 09/05/18 Docusate Sodium [Colace 100 mg Capsule] 100 mg PO DAILY 09/05/18 Ferrous Sulfate [Feosol 325 mg Tablet] 325 mg PO BID 09/05/18 Hydroxyzine Pamoate [Vistaril 25 mg Capsule] 25 mg PO BID 09/05/18 Loratadine [Claritin 10 mg Tablet] 10 mg PO DAILY 09/05/18 Phenytoin Sodium Extended [Dilantin 100 mg Capsule.er] 300 mg PO BID 09/05/18 Risperidone [Risperdal] 2 mg PO BID 09/05/18 Azithromycin [Zithromax 250 mg Tablet] 250 mg PO ASDIR PRN #6 tablet 07/07/19 Phenytoin Sodium Extended [Dilantin 100 mg Capsule.er] 300 mg PO BID #120 capsule 07/07/19 Phenytoin Sodium Extended 300 mg PO BID #60 capsule 12/04/19 Allergies/Adverse Reactions: No Known Allergies Allergy (Verified 12/25/19 11:49) Review of Systems ROS unobtainable: Due to mental status All systems: reviewed and no additional remarkable complaints except as stated Physical Exam Vital Signs: Temp Pulse Resp BP Pulse Ox 98.1 F 13 131/76 H 99 04/01/20 14:09 04/01/20 14:09 04/01/20 13:00 04/01/20 14:09 Intake & Output 03/31/20 04/01/20 04/02/20 06:59 06:59 06:59 Weight 95.254 kg General appearance: PRESENT: no acute distress, well-developed, well-nourished Head exam: PRESENT: atraumatic, normocephalic Eye exam: PRESENT: conjunctiva pink, EOMI, PERRLA. ABSENT: scleral icterus Ear exam: PRESENT: normal external ear exam Mouth exam: PRESENT: moist, tongue midline Neck exam: PRESENT: full ROM. ABSENT: carotid bruit, JVD, lymphadenopathy, thyromegaly Cardiovascular exam: PRESENT: RRR. ABSENT: diastolic murmur, rubs, systolic murmur Vascular exam: PRESENT: normal capillary refill GI/Abdominal exam: PRESENT: normal bowel sounds, soft. ABSENT: distended, guarding, mass, organolmegaly, rebound, tenderness Rectal exam: PRESENT: deferred Neurological exam: PRESENT: alert, altered, awake. ABSENT: motor sensory deficit Psychiatric exam: PRESENT: appropriate affect, normal mood. ABSENT: homicidal ideation, suicidal ideation Skin exam: PRESENT: dry, intact, warm. ABSENT: cyanosis, rash Results Laboratory Results: 04/01/20 12:06 04/01/20 12:06 04/01/20 04/01/20 04/01/20 11:15 12:06 12:06 WBC 5.2 RBC 5.26 Hgb 11.6 L Hct 36.5 L MCV 69 L MCH 22.1 L MCHC 31.8 L RDW 16.5 H Plt Count 242 Seg Neutrophils % Not Reportable Sodium 140.7 Potassium 4.6 Chloride 108 H Carbon Dioxide 28 Anion Gap 5 BUN 12 Creatinine 0.61 Est GFR ( Amer) > 60 Glucose 103 Calcium 9.4 Magnesium 2.0 Total Bilirubin 0.5 AST 22 Alkaline Phosphatase 109 Total Protein 6.8 Albumin 4.2 Urine Color YELLOW Urine Appearance CLEAR Urine pH 5.0 Ur Specific [place] 1.021 Urine Protein NEGATIVE Urine Glucose (UA) NEGATIVE Urine Ketones NEGATIVE Urine Blood SMALL H Urine Nitrite NEGATIVE Ur Leukocyte Esterase MODERATE H Urine WBC (Auto) 15 Urine RBC (Auto) 6 Impressions: Head CT 04/01/20 12:39 IMPRESSION: NORMAL BRAIN CT WITHOUT CONTRAST. EVIDENCE OF ACUTE STROKE: NO. Assessment & Plan - Diagnosis (1) Seizure Is this a current diagnosis for this admission?: Yes Plan: We will start the patient on a Dilantin usually taking 3 tablet twice a day at home we will add the Keppra 500 mg IV twice a day patient supposed to follow the neurology as outpatient (2) Altered mental status Qualifiers: Altered mental status type: unspecified Qualified Code(s): R41.82 - Altered mental status, unspecified Is this a current diagnosis for this admission?: Yes Plan: Most likely due to the related to the seizures which noncompliance not taking the medicines for the last couple of days we will get the MRI of the head and also rule out any metabolic cause and rule out any infections (3) Schizophrenia Qualifiers: Schizophrenia type: unspecified Qualified Code(s): F20.9 - Schizophrenia, unspecified Is this a current diagnosis for this admission?: Yes Plan: We consult the psych while patient is not seeing the psych recently patient is a several medication including the Depakote and also trazodone and other medication in the past (4) Bipolar disorder Qualifiers: Active/Remission status: currently active Is this a current diagnosis for this admission?: Yes - Time Time Spent: 50 to 70 Minutes Medications reviewed and adjusted accordingly: Yes Anticipated Discharge Disposition: Home with Home Health Anticipated Discharge Timeframe: within 72 hours - Inpatient Certification Based on my medical assessment, after consideration of the patient's com orbidities, presenting symptoms, or acuity I expect that the services needed warrant INPATIENT care.: Yes I certify that my determination is in accordance with my understanding of Medicare's requirements for reasonable and necessary INPATIENT services [42 CFR 412.3e].: Yes Medical Necessity: Significant Comorbidiites Make Outpatient Treatment Too Risky, Need Close Monitoring Due to Risk of Patient Decompensation, Need for Neurological Checks Post Hospital Care: D/C G[employer] Documentation - Plan Summary Plan Summary: Admit the patient in IMCU Seizures precautions See MD orders
--- NOTE | 2020-04-01 19:39 | RADIOLOGY REPORT (SQ) ---
EXAM DESCRIPTION: MRI HEAD WITHOUT IMAGES COMPLETED DATE/TIME: 04/01/2020 7:02 pm REASON FOR STUDY: ams/seziure COMPARISON: None. TECHNIQUE: Multiplanar imaging includes non-contrasted T1, T2, FLAIR, and diffusion with ADC map seq uences. Images stored on PACS. LIMITATIONS: None. FINDINGS: ANATOMY: No anomalies. Normal vascular flow voids. Pituitary fossa normal. CSF SPACES: Normal in size and contour. No hemorrhage. CEREBRUM: Sulci and gyri normal in size and contour. Normal white matter signal on FLAIR imaging. No evidence of hemorrhage, mass, or extraaxial fluid collection. POSTERIOR FOSSA: No signal alteration. No hemorrhage. No edema, masses or mass effect. Internal jeanette tory canals, cerebello-pontine angles, mastoids normal. DIFFUSION IMAGING: Negative for acute or sub-acute infarction. ORBITS: No masses. Globes normal. PARANASAL SINUSES: No fluid levels. Mucosa normal. OTHER: No other significant finding. IMPRESSION: NORMAL MRI OF THE BRAIN WITHOUT INTRAVENOUS GADOLINIUM CONTRAST. EVIDENCE OF ACUTE STROKE: NO. TECHNICAL DOCUMENTATION: JOB ID: [id number] 2010 [employer]- All Rights Reserved Reading location - IP/workstation name: [email or web address]
[2020-04-01] MEDS ORDERED: LEVETIRACETAM 500 MG/NACL-ISO 500 MG/100 ML RTUPB IV SCH (22:00)
[2020-04-01] MEDS ORDERED: LEVETIRACETAM 500 MG/NACL-ISO 500 MG/100 ML RTUPB IV ONE (23:15)
[2020-04-01] MEDS ORDERED: PHENYTOIN SODIUM EXTENDED 100 MG CAPSULE PO ONE (23:15)
[2020-04-01] MEDS: PHENYTOIN SODIUM EXTENDED 100 MG CAPSULE PO SCH (23:25)
[2020-04-01] MEDS: FAMOTIDINE 20 MG TABLET PO SCH (23:25)
--- NOTE | 2020-04-02 00:49 | EKG REPORT ---
SEVERITY:- NORMAL ECG - SINUS RHYTHM : Confirmed by: Garima Eden 02-Apr-2020 00:48:32
[2020-04-02 04:13] VITALS: BP 141/75
[2020-04-02 06:32] LABS: HEMATOCRIT 38.3 % (37.9-51.0); HEMOGLOBIN 12.5 g/dL (13.5-17.0); MEAN CORPUSCULAR HGB CONC 32.5 g/dL (32.0-36.0); MEAN CORPUSCULAR VOLUME 68 fl (80-97); PLATELET COUNT 221 10^3/uL (150-450); RED BLOOD COUNT 5.65 10^6/uL (4.35-5.55); RED CELL DISTRIBUTION WIDTH 15.9 % (11.5-14.0); WHITE BLOOD COUNT 5.6 10^3/uL (4.0-10.5)
[2020-04-02 06:35] LABS: ABSOLUTE LYMPHOCYTES# (MANUAL) 2.4 10^3/uL (0.5-4.7); ABSOLUTE MONOCYTES # (MANUAL) 0.3 10^3/uL (0.1-1.4); BASOPHILS % (MANUAL) 1 % (0-2); EOSINOPHILS % (MANUAL) 1 % (0-6); LYMPHOCYTES % (MANUAL) 40 % (13-45); MONOCYTES % (MANUAL) 5 % (3-13); SEGMENTED NEUTROPHILS % (MAN) 51 % (42-78); TOTAL CELLS COUNTED 100
[2020-04-02 06:37] LABS: ANISOCYTOSIS SLIGHT; OVALOCYTES 1+; PLATELET COMMENT ADEQUATE; POIKILOCYTOSIS 1+; SCHISTOCYTES 1+; SMUDGE CELLS PRESENT; TARGET CELLS 2+; TEAR DROP CELLS SLIGHT
[2020-04-02] MEDS: FAMOTIDINE 20 MG TABLET PO SCH (09:37)
[2020-04-02] MEDS ORDERED: CEFTRIAXONE 1 GM/D5W RTU 1 GM/50 ML RTUPB IV SCH (10:00)
[2020-04-02] MEDS ORDERED: ENOXAPARIN SODIUM INJ 40 MG/0.4 ML DISP.SYRIN SUBCUT SCH (10:00)
[2020-04-02] MEDS ORDERED: LEVETIRACETAM 500 MG TABLET PO SCH (10:00)
[2020-04-02] MEDS: PHENYTOIN SODIUM EXTENDED 100 MG CAPSULE PO SCH (10:52)
--- NOTE | 2020-04-02 11:13 | PDOC PROGRESS REPORT ---
Subjective Progress Note for:: 04/02/20 Subjective:: Patient is currently doing much better No seizures activity No fever no chest pain no short of breath Patient MRI of the head is negative blood work is all stable Reason For Visit: UTI(URINARY TRACT INFECTION) SEIZURE,CONFUSION Physical Exam Vital Signs: Temp Pulse Resp BP Pulse Ox 98.5 F 70 20 141/75 H 99 04/02/20 09:56 04/02/20 07:00 04/02/20 04:08 04/02/20 04:08 04/02/20 04:08 Intake & Output 04/01/20 04/02/20 04/03/20 06:59 06:59 06:59 Intake Total 100 50 Output Total 520 Balance -420 50 Weight 87.6 kg General appearance: PRESENT: no acute distress, well-developed, well-nourished Head exam: PRESENT: atraumatic, normocephalic Eye exam: PRESENT: conjunctiva pink, EOMI, PERRLA. ABSENT: scleral icterus Ear exam: PRESENT: normal external ear exam Mouth exam: PRESENT: moist, tongue midline Neck exam: PRESENT: full ROM. ABSENT: carotid bruit, JVD, lymphadenopathy, thyromegaly Respiratory exam: PRESENT: clear to auscultation [place]aine Cardiovascular exam: PRESENT: RRR. ABSENT: diastolic murmur, rubs, systolic murmur Pulses: PRESENT: normal dorsalis pedis pul, +2 pedal pulses bilateral Vascular exam: PRESENT: normal capillary refill GI/Abdominal exam: PRESENT: normal bowel sounds, soft. ABSENT: distended, guarding, mass, organolmegaly, rebound, tenderness Rectal exam: PRESENT: deferred Musculoskeletal exam: PRESENT: ambulatory Neurological exam: PRESENT: alert, awake, oriented to person, oriented to place, oriented to time, oriented to situation, CN II-XII grossly intact, normal gait. ABSENT: motor sensory deficit Psychiatric exam: PRESENT: appropriate affect, normal mood. ABSENT: homicidal ideation, suicidal ideation Skin exam: PRESENT: dry, intact, warm. ABSENT: cyanosis, rash Results Laboratory Results: 04/02/20 05:25 04/01/20 16:25 04/01/20 04/01/20 04/01/20 11:15 12:06 12:06 WBC 5.2 RBC 5.26 Hgb 11.6 L Hct 36.5 L MCV 69 L MCH 22.1 L MCHC 31.8 L RDW 16.5 H Plt Count 242 Seg Neutrophils % Not Reportable Carbonic Acid HCO3/H2CO3 Ratio ABG pH ABG pCO2 ABG pO2 ABG HCO3 ABG O2 Saturation ABG Base Excess FiO2 Sodium 140.7 Potassium 4.6 Chloride 108 H Carbon Dioxide 28 Anion Gap 5 BUN 12 Creatinine 0.61 Est GFR ( Amer) > 60 Glucose 103 Calcium 9.4 Magnesium 2.0 Total Bilirubin 0.5 AST 22 Alkaline Phosphatase 109 Ammonia Total Protein 6.8 Albumin 4.2 Urine Color YELLOW Urine Appearance CLEAR Urine pH 5.0 Ur Specific [place] 1.021 Urine Protein NEGATIVE Urine Glucose (UA) NEGATIVE Urine Ketones NEGATIVE Urine Blood SMALL H Urine Nitrite NEGATIVE Ur Leukocyte Esterase MODERATE H Urine WBC (Auto) 15 Urine RBC (Auto) 6 04/01/20 04/01/20 04/02/20 16:22 16:25 05:25 WBC 5.6 RBC 5.65 H Hgb 12.5 L Hct 38.3 MCV 68 L MCH 22.0 L MCHC 32.5 RDW 15.9 H Plt Count 221 Seg Neutrophils % Not Reportable Carbonic Acid 1.49 H HCO3/H2CO3 Ratio 17:1 ABG pH 7.33 L ABG pCO2 49.4 H ABG pO2 112.2 H ABG HCO3 25.6 H ABG O2 Saturation 97.8 ABG Base Excess -0.8 FiO2 2L Sodium 143.9 Potassium 4.0 Chloride 104 Carbon Dioxide 30 Anion Gap 10 BUN 10 Creatinine 0.57 Est GFR ( Amer) > 60 Glucose 96 Calcium 9.5 Magnesium Total Bilirubin AST Alkaline Phosphatase Ammonia Total Protein Albumin Urine Color Urine Appearance Urine pH Ur Specific [place] Urine Protein Urine Glucose (UA) Urine Ketones Urine Blood Urine Nitrite Ur Leukocyte Esterase Urine WBC (Auto) Urine RBC (Auto) 04/02/20 04/02/20 05:25 05:25 WBC RBC Hgb Hct MCV MCH MCHC RDW Plt Count Seg Neutrophils % Carbonic Acid HCO3/H2CO3 Ratio ABG pH ABG pCO2 ABG pO2 ABG HCO3 ABG O2 Saturation ABG Base Excess FiO2 Sodium Potassium Chloride Carbon Dioxide Anion Gap BUN Creatinine Est GFR ( Amer) Glucose Calcium Magnesium 1.9 Total Bilirubin AST Alkaline Phosphatase Ammonia 32.1 Total Protein Albumin Urine Color Urine Appearance Urine pH Ur Specific [place] Urine Protein Urine Glucose (UA) Urine Ketones Urine Blood Urine Nitrite Ur Leukocyte Esterase Urine WBC (Auto) Urine RBC (Auto) Impressions: Head MRI 04/01/20 00:00 IMPRESSION: NORMAL MRI OF THE BRAIN WITHOUT INTRAVENOUS GADOLINIUM CONTRAST. EVIDENCE OF ACUTE STROKE: NO. Head CT 04/01/20 12:39 IMPRESSION: NORMAL BRAIN CT WITHOUT CONTRAST. EVIDENCE OF ACUTE STROKE: NO. Chest X-Ray 04/01/20 15:09 IMPRESSION: NO ACUTE RADIOGRAPHIC FINDING IN THE CHEST. Assessment & Plan - Diagnosis (1) Seizure Is this a current diagnosis for this admission?: Yes Plan: We will switch to IV p.o. Keppra make appointment outpatients neurology if the remain stable next 24 I will discharge the patient (2) Altered mental status Qualifiers: Altered mental status type: unspecified Qualified Code(s): R41.82 - Altered mental status, unspecified Is this a current diagnosis for this admission?: Yes Plan: Most likely postictal phase currently all resolved (3) Schizophrenia Qualifiers: Schizophrenia type: unspecified Qualified Code(s): F20.9 - Schizophrenia, unspecified Is this a current diagnosis for this admission?: Yes Plan: Patient is to follow the psych as outpatient (4) Bipolar disorder Qualifiers: Active/Remission status: currently active Is this a current diagnosis for this admission?: Yes - Time Time Spent with patient: 15-24 minutes Level of Care: IMCU Medications reviewed and adjusted accordingly: Yes Anticipated discharge: Home Anticipated DC Timeframe: within 24 hours - Plan Summary Plan Summary: Discussed with the nursing staff to consult the [employer] task force planners about the compliance issue in the home situations continues the current medications hopefully discharge next 24 hours remained stable
--- NOTE | 2020-04-02 13:22 | Left Against Medical Advice ---
Against Medical Advice Admission Date/Time: 04/01/20 15:21 Primary Care Provider: VIGNESH ADAMS MD Date of Patient Emigration: 04/02/20 - Diagnosis: (1) Seizure Is this a current diagnosis for this admission?: Yes (2) Altered mental status Is this a current diagnosis for this admission?: Yes (3) Schizophrenia Is this a current diagnosis for this admission?: Yes (4) Bipolar disorder Is this a current diagnosis for this admission?: Yes - Summary: Summary: Please see Admission and Progress Notes as well. SHANTELL DE DIOS is a 54 M, who LEFT AGAINST MEDICAL ADVICE. The Patient was admitted on 04/01/20 15:21. This is a 54-year-old male presents with the seizures disorder due to noncompliance and the patient's admitting in the hospital he had MRI head CT was done was all negative blood work is all stable patient is back to the baseline Patient is fully alert awake oriented x4 denied any complaints since wants to go home's because of the patient have a seizures medicine adjusted and given at the [facility] prefer to keep another 24 hours Patients do not want to stay patient is fully alert awake and oriented x4 as usual and the patient's sister insist that patient is homeless but patient do not want any helps Patient's will make arrangement what he can do and he does not want any helps Send the prescriptions for the [facility] follow outpatients neurology Patient's continues to be noncompliant is nothing much we can offer
== END 2020-04-02 10:50 | disposition left against medical advice (07) | DRG 101 ==
LOC: ER 10:57 → EH 15:21 → 3W 19:13
PROVIDERS: ADMIT Family Medicine; ATTEND Family Medicine
DX: G40.909 Epilepsy, unspecified, not intractable, without status epilepticus (principal); N39.0 Urinary tract infection, site not specified; I10 Essential (primary) hypertension; F20.9 Schizophrenia, unspecified; F31.9 Bipolar disorder, unspecified; F17.210 Nicotine dependence, cigarettes, uncomplicated; Z91.19 Patient's noncompliance with other medical treatment and regimen; Z59.0 Homelessness; Z79.899 Other long term (current) drug therapy
CPT/HCPCS: 36415; 70450; 70551; 71045; 80053; 80185; 80307; 81001; 82140; 82803; 82962; 83735; 85025; 87040; 87086; 93005; 93010; 96374; 96375; 99285; J0696; J1165; J1650; J1953; J2060

== ENCOUNTER 2020-05-09 18:36 | Emergency (ER) | payer MEDICARE, MEDICAID ==
[2020-05-09] MEDS ORDERED: HALOPERIDOL LACTATE INJ 5 MG/1 ML VIAL IM ONE (18:50)
[2020-05-09] MEDS ORDERED: DIPHENHYDRAMINE HCL 50 MG/ML VIAL ONE (18:50)
[2020-05-09] MEDS ORDERED: HALOPERIDOL LACTATE INJ 5 MG/1 ML VIAL ONE (18:50)
[2020-05-09] MEDS ORDERED: LORAZEPAM INJ 2 MG/1 ML VIAL IM ONE (18:51)
[2020-05-09] MEDS ORDERED: DIPHENHYDRAMINE HCL 50 MG/ML VIAL IM ONE (18:51)
--- NOTE | 2020-05-09 20:59 | ER Document Report ---
ED Psych Disorder / Suicide - General Chief Complaint: Psych Problem Stated Complaint: PSYCH Time Seen by Provider: 05/09/20 18:50 Primary Care Provider: VIGNESH ADAMS MD [Primary Care Provider] - Follow up as needed Notes: 55 year old male arrives with local law enforcement due to agitation and hallucinations. Pt is hallucinating talking sporadically, nonsensically and has reportedly been off his schizophrenia maintainence medicines. For his safety he is rapidly chemically restrained. TRAVEL OUTSIDE OF THE [place] IN LAST 30 DAYS: No - HPI Severity: Mild Pain Level: Denies Associated symptoms: Aggressive, Agitated, Flight of ideas, Paranoid, Psychomotor agitation Similar symptoms previously: Yes Recently seen / treated by doctor: No - Related Data Allergies/Adverse Reactions: No Known Allergies Allergy (Verified 12/25/19 11:49) Past Medical History - Social History Smoking Status: Unknown if Ever Smoked Family History: None, Reviewed & Not Pertinent - Past Medical History Cardiac Medical History: Reports: Hx Hypertension Neurological Medical History: Reports: Hx Seizures - DILANTIN 300mg BID Renal/ Medical History: Denies: Hx Peritoneal Dialysis Psychiatric Medical History: Reports: Hx Bipolar Disorder, Hx Schizoaffective Disorder, Hx Schizophrenia Denies: Hx Depression Past Surgical History: Reports: Hx Orthopedic Surgery - Immunizations Hx Diphtheria, Pertussis, Tetanus Vaccination: No Review of Systems - Review of Systems -: Yes ROS unobtainable due to patient's medical condition Physical Exam - Vital signs Vitals: Temp Pulse Resp BP Pulse Ox 98.2 F 83 18 134/87 H 100 05/09/20 19:06 05/09/20 19:06 05/09/20 19:06 05/09/20 19:06 05/09/20 19:06 Interpretation: Normal - General General appearance: Appears well, Alert - HEENT Head: Normocephalic, Atraumatic Eyes: Normal Pupils: PERRL - Respiratory Respiratory status: No respiratory distress Chest status: Nontender Breath sounds: Normal Chest palpation: Normal - Cardiovascular Rhythm: Regular Heart sounds: Normal auscultation Murmur: No - Abdominal Inspection: Normal Distension: No distension Bowel sounds: Normal Tenderness: Nontender Organomegaly: No organomegaly - Back Back: Normal, Nontender - Extremities General upper extremity: Normal inspection, Nontender, Normal color, Normal ROM, Normal temperature General lower extremity: Normal inspection, Nontender, Normal color, Normal ROM, Normal temperature, Normal weight bearing. No: Kiana's sign - Neurological Neuro grossly intact: Yes Cognition: Normal Orientation: AAOx4 [place] Coma Scale Eye Opening: Spontaneous Janine Coma Scale Verbal: Oriented [place] Coma Scale Motor: Obeys Commands Janine Coma Scale Total: 15 Speech: Normal Sensory: Normal - Psychological Associated symptoms: Normal affect, Normal mood - Skin Skin Temperature: Warm Skin Moisture: Dry Skin Color: Normal Course - Vital Signs Vital signs: Temp Pulse Resp BP Pulse Ox 98.2 F 83 18 134/87 H 100 05/09/20 19:06 05/09/20 19:06 05/09/20 19:06 05/09/20 19:06 05/09/20 19:06 - Laboratory Result Diagrams: 05/09/20 21:00 05/09/20 21:00 Laboratory results interpreted by me: 05/09/20 05/09/20 05/09/20 20:30 21:00 21:00 Sodium 149.2 H Potassium 3.5 L Chloride 112 H BUN 27 H ALT 67 H Urine Protein 30 H Urine Urobilinogen 2.0 H Ur Leukocyte Esterase MODERATE H Salicylates < 1.0 L Acetaminophen < 10 L Valproic Acid < 10.0 L - EKG Interpretation by Me EKG shows normal: Sinus rhythm Rate: Normal Rhythm: NSR - NSR NL [place] 85 BPM repolarization abnormality without st elevation or depression my interpretation. Critical Care Note - Critical Care Note Total time excluding time spent on procedures (mins): 30 Discharge - Discharge Clinical Impression: Schizophrenia Qualifiers: Schizophrenia type: unspecified Qualified Code(s): F20.9 - Schizophrenia, unspecified Condition: Serious Disposition: PSYCH HOSP/UNIT Referrals: VIGNESH ADAMS MD [Primary Care Provider] - Follow up as needed
[2020-05-09 21:12] LABS: ABSOLUTE BASOPHILS # (AUTO) 0.1 10^3/uL (0.0-0.2); ABSOLUTE LYMPHOCYTES (AUTO) 2.5 10^3/uL (0.5-4.7); ABSOLUTE MONOCYTES (AUTO) 0.5 10^3/uL (0.1-1.4); ABSOLUTE NEUT (AUTO) 4.3 10^3/uL (1.7-8.2); BASOPHILS % (AUTO) 0.8 % (0-2); EOSINOPHILS % (AUTO) 0.2 % (0-6); HEMATOCRIT 34.9 % (37.9-51.0); HEMOGLOBIN 11.3 g/dL (13.5-17.0); LYMPHOCYTES % (AUTO) 33.6 % (13-45); MEAN CORPUSCULAR HEMOGLOBIN 22.4 pg (27.0-33.4); MEAN CORPUSCULAR HGB CONC 32.4 g/dL (32.0-36.0); MEAN CORPUSCULAR VOLUME 69 fl (80-97); MONOCYTES % (AUTO) 6.9 % (3-13); PLATELET COUNT 231 10^3/uL (150-450); RED BLOOD COUNT 5.05 10^6/uL (4.35-5.55); RED CELL DISTRIBUTION WIDTH 15.3 % (11.5-14.0); SEGMENTED NEUTROPHILS % (AUTO) 58.5 % (42-78); TOTAL CELLS COUNTED % (AUTO) 100 %; WHITE BLOOD COUNT 7.4 10^3/uL (4.0-10.5)
[2020-05-09 21:14] LABS: APPEARANCE,URINE SLIGHTLY-CLOUDY; BILIRUBIN,URINE NEGATIVE (NEGATIVE); GLUCOSE, URINE NEGATIVE (NEGATIVE); KETONES,URINE NEGATIVE (NEGATIVE); LEUKOCYTE ESTERASE,URINE MODERATE (NEGATIVE); NITRITE,URINE NEGATIVE (NEGATIVE); PROTEIN,URINE 30 mg/dL (NEGATIVE); URINE SPECIFIC GRAVITY 1.031
[2020-05-09 21:15] LABS: COLOR,URINE YELLOW
[2020-05-09 21:27] LABS: URINE AMPHETAMINES SCREEN NEGATIVE; URINE BARBITURATES SCREEN NEGATIVE; URINE BENZODIAZEPINES SCREEN NEGATIVE; URINE COCAINE SCREEN NEGATIVE; URINE MARIJUANA (THC) SCREEN NEGATIVE; URINE METHADONE SCREEN NEGATIVE; URINE PHENCYCLIDINE SCREEN NEGATIVE
[2020-05-09 21:29] LABS: ALBUMIN 4.3 g/dL (3.5-5.0); ALKALINE PHOSPHATASE 95 U/L (38-126); ANION GAP 9 (5-19); ASPARTATE AMINO TRANSFERASE 57 U/L (17-59); BILIRUBIN,DIRECT 0.4 mg/dL (0.0-0.4); BILIRUBIN,TOTAL 0.7 mg/dL (0.2-1.3); BLOOD UREA NITROGEN 27 mg/dL (7-20); CALCIUM 9.8 mg/dL (8.4-10.2); CARBON DIOXIDE 28 mmol/L (22-30); CHLORIDE 112 mmol/L (98-107); GLUCOSE 81 mg/dL (75-110); POTASSIUM 3.5 mmol/L (3.6-5.0); TOTAL PROTEIN 7.2 g/dL (6.3-8.2)
[2020-05-09 21:38] LABS: ACETAMINOPHEN < 10 ug/mL (10-30); ALCOHOL < 10 mg/dL (NONE DETECTED); SALICYLATE < 1.0 mg/dL (2.0-20.0)
--- NOTE | 2020-05-10 06:59 | EKG REPORT ---
SEVERITY:- ABNORMAL ECG - SINUS RHYTHM LVH BORDERLINE T ABNORMALITIES, INFERIOR LEADS PROLONGED QT INTERVAL : Confirmed by: Jeff Cunningham MD 10-May-2020 06:58:57
--- NOTE | 2020-05-10 15:55 | ER Document Report ---
Doctor's Note Notes: 05/10/20 15:54 Patient's vital signs and previous labs, diagnostic images reviewed. Reviewed mental health notes, nurse's notes and previous providers notes. VSS. Pt is in no distress at this time. Denies any SI or HI. General: A&Ox3. Answers questions inappropriately and not making any sense Heart: RRR Lungs: CTAB Psych: Flat affect A/P: Continue monitoring and rec's per MH. Normal diet will continue monitor
[2020-05-10] MEDS ORDERED: DIPHENHYDRAMINE HCL 50 MG/ML VIAL IM ONE (15:58)
[2020-05-10] MEDS ORDERED: HYDROXYZINE HCL INJ 50 MG/1 ML VIAL IM ONE (16:07)
[2020-05-10] MEDS ORDERED: HALOPERIDOL LACTATE INJ 5 MG/1 ML VIAL IM ONE (18:41)
--- NOTE | 2020-05-10 19:29 | PSYCHOLOGICAL NOTE ---
Psych Note - Psych Note Date seen by psych provider: 05/10/20 Psych Note: Medication recommendations made by the psychiatric medication provider, Dr. Aryan MARTIN., includes: Continue Dilantin 300MG twice a day for epilepsy/seizures Add Depakote 500MG twice a day for mood stabilization Add Risperdal 0.25MG twice a day as needed for psychosis/agitation Impression/Plan: Recommendation to maintain FULL IVC. Patient has a history of schizoaffective disorder and epilepsy and being noncompliant with medication/treatment. He presented with pressured speech, tangential thinking and flight of ideas (jump from topic to topic and answering questions with responses that had nothing to do with question), delusional (talking about a him out there doing stuff, as well as [employer] [place] lost his freedom and wanted to see peace), and perseverated on this clinician and other medical staff being beautiful. He was found by LE walking into traffic. AKILA FERNANDEZ was invoolved and petitioned for IVC due to being agitated, aggressive, hallucinating and noncompliant with medications. When he first arrived to ED he was noncompliant and uncooperative, rambling inappropriately, making bizarre comments and attempted to fight with [employer] which resulted in security presence and need for restraints and medication.
[2020-05-10] MEDS: PHENYTOIN SODIUM EXTENDED 100 MG CAPSULE PO SCH (20:28)
[2020-05-10] MEDS: DIVALPROEX SODIUM 500 MG TAB.SR.24H PO SCH (20:29)
[2020-05-10] MEDS: RISPERIDONE 0.25 MG TABLET PO SCH (20:29)
[2020-05-11] MEDS: RISPERIDONE 0.25 MG TABLET PO SCH ×2 (10:15→17:16)
[2020-05-11] MEDS: PHENYTOIN SODIUM EXTENDED 100 MG CAPSULE PO SCH ×2 (10:15→17:16)
[2020-05-11] MEDS: DIVALPROEX SODIUM 500 MG TAB.SR.24H PO SCH ×2 (10:16→17:16)
--- NOTE | 2020-05-11 17:58 | ER Document Report ---
Doctor's Note Notes: 05/11/20 17:58 PHYSICAL EXAMINATION: GENERAL: Appears well, healthy, well-nourished, no acute distress. LUNGS: Equal breath sounds bilaterally and clear to auscultation. No wheezes rales or rhonchi. CARDIOVASCULAR: S1-S2, regular rate, regular rhythm. Radial pulses 2+, normal. ABDOMEN: Normoactive bowel sounds. Soft, nontender, no guarding, no rebound tenderness, and no masses palpated. PSYCH: Normal mood, normal affect. Patient denies any suicidal or homicidal ideation. Denies any auditory or visual hallucinations. At this time, mental health does not have any recommendations. Patient will continue to stay here in the emergency department will be reevaluated in the morning. Patient is eating his dinner and engaging well in conversation.
--- NOTE | 2020-05-11 20:53 | PSYCHOLOGICAL NOTE ---
Psych Note - Psych Note Date seen by psych provider: 05/11/20 Psych Note: Medication recommendation: Note the Risperdal 0.25MG twice a day is meant to be as needed but was put in scheduled. Continue all other medications as is Impression/Plan: Recommendation to maintain FULL IVC. Patient was just restarted on medications last evening. He continued to present with pressured speech, tangential thinking with flight of ideas, but was more cooperative and agreed to continue taking the medications. Want to allow for continued medication stabilization given level of psychosis he presented with and just starting to be more compliant and cooperative.
[2020-05-12] MEDS: PHENYTOIN SODIUM EXTENDED 100 MG CAPSULE PO SCH ×2 (09:39→17:23)
[2020-05-12] MEDS: DIVALPROEX SODIUM 500 MG TAB.SR.24H PO SCH ×2 (09:39→17:23)
[2020-05-12] MEDS: RISPERIDONE 0.25 MG TABLET PO SCH ×2 (09:40→17:24)
--- NOTE | 2020-05-12 20:52 | ER Document Report ---
Doctor's Note Notes: 05/12/20 PHYSICAL EXAMINATION: GENERAL: Appears well, healthy, well-nourished, no acute distress. LUNGS: Equal breath sounds bilaterally and clear to auscultation. No wheezes rales or rhonchi. CARDIOVASCULAR: S1-S2, regular rate, regular rhythm. Radial pulses 2+, normal. ABDOMEN: Normoactive bowel sounds. Soft, nontender, no guarding, no rebound tenderness, and no masses palpated. PSYCH: Normal mood, normal affect. Patient denies any suicidal or homicidal ideation at this time. Denies any auditory visual hallucinations at this time also. Patient will be transferred to [place] tomorrow morning no medication recommendations from mental health at this time.
--- NOTE | 2020-05-13 08:55 | ER Document Report ---
Doctor's Note Notes: 05/13/20 08:54 Transport is here to bring the patient to [facility]. He is standing in the doorway talking to himself but is otherwise in no distress
[2020-05-13 09:04] VITALS: BP 114/86
== END 2020-05-13 09:04 ==
LOC: ER 18:36
DX: F20.9 Schizophrenia, unspecified (principal); G40.909 Epilepsy, unspecified, not intractable, without status epilepticus; R45.1 Restlessness and agitation; I10 Essential (primary) hypertension; Z91.14 Patient's other noncompliance with medication regimen
CPT/HCPCS: 93005; 99285; 96372 ×2; 36415; 80307 ×4; 85025; 80053; 81001; 80164; 93010; J1200 ×2; J1630 ×2; J3410; J2060; A9270 ×9; J3490

== ENCOUNTER 2020-06-01 23:43 | Emergency (ER) | payer MEDICARE, MEDICAID ==
[2020-06-02] MEDS ORDERED: LEVETIRACETAM 1000 MG/NACL-ISO 1,000 MG/100 ML RTUPB IV ONE (00:39)
[2020-06-02 01:07] LABS: HEMATOCRIT 31.7 % (37.9-51.0); HEMOGLOBIN 10.2 g/dL (13.5-17.0); MEAN CORPUSCULAR HEMOGLOBIN 22.1 pg (27.0-33.4); MEAN CORPUSCULAR VOLUME 69 fl (80-97); RED CELL DISTRIBUTION WIDTH 16.2 % (11.5-14.0); WHITE BLOOD COUNT 4.3 10^3/uL (4.0-10.5)
[2020-06-02 01:25] LABS: ALBUMIN 3.5 g/dL (3.5-5.0); ALKALINE PHOSPHATASE 91 U/L (38-126); ANION GAP 9 (5-19); ASPARTATE AMINO TRANSFERASE 20 U/L (17-59); BILIRUBIN,DIRECT 0.2 mg/dL (0.0-0.4); BILIRUBIN,TOTAL 0.3 mg/dL (0.2-1.3); BLOOD UREA NITROGEN 11 mg/dL (7-20); CALCIUM 8.8 mg/dL (8.4-10.2); CARBON DIOXIDE 25 mmol/L (22-30); CHLORIDE 106 mmol/L (98-107); GLUCOSE 124 mg/dL (75-110); POTASSIUM 3.9 mmol/L (3.6-5.0); TOTAL PROTEIN 6.2 g/dL (6.3-8.2)
[2020-06-02 01:31] LABS: ALCOHOL < 10 mg/dL (NONE DETECTED)
[2020-06-02 01:46] LABS: ABSOLUTE LYMPHOCYTES# (MANUAL) 1.6 10^3/uL (0.5-4.7); ABSOLUTE MONOCYTES # (MANUAL) 0.1 10^3/uL (0.1-1.4); BASOPHILS % (MANUAL) 0 % (0-2); EOSINOPHILS % (MANUAL) 6 % (0-6); LYMPHOCYTES % (MANUAL) 37 % (13-45); MONOCYTES % (MANUAL) 3 % (3-13); SEGMENTED NEUTROPHILS % (MAN) 53 % (42-78); TOTAL CELLS COUNTED 100
[2020-06-02 01:48] LABS: ANISOCYTOSIS SLIGHT; HYPOCHROMASIA 1+; PLATELET COMMENT ADEQUATE; POIKILOCYTOSIS SLIGHT; TEAR DROP CELLS SLIGHT
[2020-06-02 01:49] LABS: PLATELET COUNT 231 10^3/uL (150-450)
--- NOTE | 2020-06-02 02:06 | ER Document Report ---
ED Seizure - General Chief Complaint: Probable Seizure Stated Complaint: ALTERED MENTAL STATUS Time Seen by Provider: 06/02/20 00:25 Primary Care Provider: VIGNESH ADAMS MD [Primary Care Provider] - 06/02/20 Notes: Patient is a 55-year-old male who comes emergency department for chief complaint of seizure. Patient was reportedly having seizure-like activity at home while hanging out with his friend that lasted 2 minutes or less, resolved, patient was drowsy and disoriented, EMS reports patient was drowsy and alert and oriented x2 initially, upon arrival to the emergency department by that time patient was fully alert, completely oriented, although could not recall the events of tonight. Patient does have a history of seizures, he is on both Keppra and phenytoin reportedly. He states that he accidentally missed a couple of doses of his medications, he was supposed to be seen on Tuesday reportedly with his primary care to get refills. He states he had 2 drinks of alcohol earlier in the evening as well but he states that should be out of his system by now. He denies headache, fever, nausea, vomiting, or any other complaints. - Related Data Allergies/Adverse Reactions: No Known Allergies Allergy (Verified 12/25/19 11:49) Home Medications: phenabarbitol Past Medical History - General Information source: Patient - Social History Smoking Status: Never Smoker Frequency of alcohol use: Occasional Drug Abuse: None Lives with: Family Family History: None, Reviewed & Not Pertinent Patient has homicidal ideation: No - Past Medical History Cardiac Medical History: Reports: Hx Hypertension Neurological Medical History: Reports: Hx Seizures - DILANTIN 300mg BID Renal/ Medical History: Denies: Hx Peritoneal Dialysis Psychiatric Medical History: Reports: Hx Bipolar Disorder, Hx Schizoaffective Disorder, Hx Schizophrenia Denies: Hx Depression Past Surgical History: Reports: Hx Orthopedic Surgery - Immunizations Hx Diphtheria, Pertussis, Tetanus Vaccination: No Review of Systems - Review of Systems Constitutional: No symptoms reported EENT: No symptoms reported Cardiovascular: No symptoms reported Respiratory: No symptoms reported Gastrointestinal: No symptoms reported Genitourinary: No symptoms reported Male Genitourinary: No symptoms reported Musculoskeletal: No symptoms reported Skin: No symptoms reported Hematologic/Lymphatic: No symptoms reported Neurological/Psychological: See HPI Physical Exam - Vital signs Vitals: Resp 11 L 06/01/20 23:43 - Notes Notes: GENERAL: Alert, interacts well. No acute distress. HEAD: Normocephalic, atraumatic. EYES: Pupils equal, round, and reactive to light. Extraocular movements intact. ENT: Oral mucosa moist, tongue midline. Oropharynx unremarkable. Airway patent. NECK: Full range of motion. Supple. Trachea midline. No lymphadenopathy. LUNGS: Clear to auscultation bilaterally, no wheezes, rales, or rhonchi. No respiratory distress. Non-tender chest wall. HEART: Regular rate and rhythm. No murmur ABDOMEN: Soft, non-tender. Non-distended. EXTREMITIES: Moves all 4 extremities spontaneously. No edema, normal radial and dorsalis pedis pulses bilaterally. No cyanosis. BACK: no cervical, thoracic, lumbar midline tenderness. No saddle anesthesia, normal distal neurovascular exam. Moves all extremities in full range of motion. NEUROLOGICAL: Alert and oriented x3. Normal speech. Cranial nerves II through XII grossly intact. Strength 5/5 in all extremities. PSYCH: Normal affect, normal mood. SKIN: Warm, dry, normal turgor. No rashes or lesions noted. Course - Re-evaluation Re-evalutation: Laboratory work-up with no overt concerning findings, magnesium unremarkable, alcohol negative. Unable to obtain phenytoin levels because lab did not have the reagent. Patient did not have any head injury. Patient has no current complaints. Vital signs unremarkable. Neurological examination unremarkable, postictal state has completely resolved. I suspect patient had a seizure because he was out of his medication and missed medication doses. He was given Keppra bolus after I discovered patient was on Keppra and phenytoin. Discussed alcohol avoidance. Patient provided with refills. discussed follow-up and return precautions. Patient states appreciation and agreement. - Vital Signs Vital signs: Temp Pulse Resp BP Pulse Ox 16 117/84 97 06/02/20 02:01 06/02/20 02:01 06/02/20 02:01 - Laboratory Result Diagrams: 06/02/20 00:42 06/02/20 00:42 Laboratory results interpreted by me: 06/02/20 06/02/20 00:42 00:42 Hgb 10.2 L Hct 31.7 L MCV 69 L MCH 22.1 L RDW 16.2 H Creatinine 0.48 L Glucose 124 H Total Protein 6.2 L Discharge - Discharge Clinical Impression: Seizure Epilepsy Qualifiers: Epilepsy type: unspecified Intractability: not intractable Status epilepticus: without status epilepticus Qualified Code(s): G40.909 - Epilepsy, unspecified, not intractable, without status epilepticus Condition: Stable Disposition: HOME, SELF-CARE Additional Instructions: It is very important to avoid missing doses of your seizure medication, missing doses significantly increases the chance of you having seizures. Take your medication as prescribed, follow-up with your primary care provider kenji watkins for additional management. Return if you worsen including multiple seizures, fever, severe headache, or any other concerning or worsening symptoms. Prescriptions: Levetiracetam [Keppra 500 mg Tablet] 500 mg PO Q12 #60 tablet Phenytoin Sodium Extended 300 mg PO BID 30 Days #180 capsule Referrals: VIGNESH ADAMS MD [Primary Care Provider] - 06/02/20
[2020-06-02 02:45] VITALS: BP 117/84
== END 2020-06-02 03:01 | disposition home or self-care (01) ==
LOC: ER 23:43
DX: G40.909 Epilepsy, unspecified, not intractable, without status epilepticus (principal); T42.6X6A Underdosing of other antiepileptic and sedative-hypnotic drugs, initial encounter; Z91.138 Patient's unintentional underdosing of medication regimen for other reason; I10 Essential (primary) hypertension
CPT/HCPCS: 99284; 96365; 36415; 80307; 83735; 85025; 80053; J1953